=== PATIENT | female | born 1950 | race Caucasian/White ===

== ENCOUNTER → 2018-01-09 15:53 | Outpatient (CLI) | payer OTHER, SELFPAY ==
--- NOTE | 2018-01-09 16:15 | DI.REPORT_ITS ---
SYMPTOM/DIAGNOSIS: SCREENING, Z12.31 MAMMOGRAMS: Mammograms were interpreted according to the usual protocol including computer analysis with CAD system, tomosynthesis and C view imaging. Comparison with prior examinations. Breast density B. No masses or microcalcifications are seen. There is nothing to suggest malignancy. IMPRESSION: Negative mammogram. Routine screening is recommended. Category 1 -B MQSA ASSESSMENT OF FINDINGS: Negative. Category 1. Patient will receive a letter notifying them of these results. BI-RADS category B. There are scattered areas of fibroglandular density.
== END ==
PROVIDERS: PCP Nurse Practitioner; Visit Provider Nurse Practitioner Family
DX: Z12.31 Encounter for screening mammogram for malignant neoplasm of breast (principal)
CPT/HCPCS: 77063; 77067

== ENCOUNTER 2018-08-24 09:08 | Outpatient (REF) | payer OTHER, SELFPAY ==
[2018-08-24 15:03] LABS: Cholesterol 202 mg/dL (50-200); HDL Cholesterol 59 mg/dL (40-60); LDL CHOLESTEROL 118 mg/dL (<100); TSH (W/Ref FT4) 3.21 uIU/mL (0.358-3.74); Triglyceride 143 mg/dL (30-150)
== END 2018-08-24 09:28 ==
LOC: NCHCN 09:08
PROVIDERS: PCP Nurse Practitioner; Visit Provider Nurse Practitioner
DX: E03.9 Hypothyroidism, unspecified (principal); E78.00 Pure hypercholesterolemia, unspecified
CPT/HCPCS: 80061; 83721; 84443

== ENCOUNTER 2019-05-08 12:34 | Outpatient (REF) | payer OTHER, SELFPAY ==
[2019-05-08 14:20] LABS: ALT 24 U/L (14-59); AST 22 U/L (15-37); Alkaline Phosphatase 92 U/L (46-116); Anion Gap 10.8 mmol/L (3-11); BUN 14 mg/dL (7-18); Bilirubin, Total 0.4 mg/dL (0.2-1.0); CO2 27.2 mmol/L (21.0-32.0); CREATININE 0.77 mg/dL (0.55-1.02); Calcium 9.5 mg/dL (8.5-10.1); Calculated LDL 195 mg/dL; Chloride 103 mmol/L (98-107); Cholesterol 294 mg/dL (<200); Glucose 93 mg/dL (74-106); HDL Cholesterol 57 mg/dL (40-60); Potassium 4.5 mmol/L (3.5-5.1); Sodium 141 mmol/L (136-145); Total Protein 7.5 g/dL (6.4-8.2); Triglyceride 213 mg/dL (<150)
== END 2019-05-08 12:54 ==
LOC: NCHCN 12:34
PROVIDERS: PCP Nurse Practitioner; Visit Provider Nurse Practitioner
DX: I10 Essential (primary) hypertension (principal)
CPT/HCPCS: 80053; 80061

== ENCOUNTER 2020-08-19 12:24 | Outpatient (CLI) | payer OTHER, SELFPAY ==
--- NOTE | 2020-08-19 | DI.DEXA_ITS ---
EXAM: XR DEXA BONE DENSITY W/WO LEAH CLINICAL HISTORY: OSTEOPOROSIS, M81.0 TECHNIQUE: Routine DEXA evaluation of the lumbar spine, hip, or forearm. COMPARISON: August 2010 study FINDINGS: Performed on a HoloFRESS unit. Lateral image: No compression fracture evident. Lumbar Spine total T-score: -3.1. Prior 2010 reading was -2.9. Hip total T-score:-1.9. Prior 2010 reading was -1.1. Today's T-score at the level of the ipsilateral femoral neck is -2.0 Forearm total T-score: IMPRESSION: Bone mineral density measures in the osteoporosis range. Fracture risk is high. Note: Any spine fracture indicates 5x risk for subsequent spine fracture and 2x risk for subsequent h ip fracture. World Health Organization criteria for BMD interpretation classify patients: Normal...... T- Score at or above -1.0 Osteopenic... T- Score between -1.0 and -2.5 Osteoporosis... T-Score at or below -2.5
== END 2020-08-19 12:44 ==
PROVIDERS: PCP Nurse Practitioner; Visit Provider Nurse Practitioner
DX: M81.0 Age-related osteoporosis without current pathological fracture (principal)
CPT/HCPCS: 77080

== ENCOUNTER 2020-08-29 07:57 | Outpatient (REF) | payer OTHER, SELFPAY ==
[2020-08-29 16:32] LABS: Hemoglobin A1C 6.1 % (<5.7)
[2020-08-29 16:42] LABS: ALT 28 U/L (14-59); AST 22 U/L (15-37); Albumin 4.2 g/dL (3.4-5.0); Alkaline Phosphatase 101 U/L (46-116); Anion Gap 7.2 mmol/L (3-11); BUN 14 mg/dL (7-18); Bilirubin, Total 0.4 mg/dL (0.2-1.0); CO2 28.8 mmol/L (21.0-32.0); CREATININE 0.8 mg/dL (0.55-1.02); Calcium 9.7 mg/dL (8.5-10.1); Calculated LDL 81 mg/dL (<100); Chloride 106 mmol/L (98-107); Cholesterol 172 mg/dL (<200); Glucose 93 mg/dL (74-106); HDL Cholesterol 59 mg/dL (40-60); Potassium 4.3 mmol/L (3.5-5.1); Sodium 142 mmol/L (136-145); TSH (W/Ref FT4) 2.79 uIU/mL (0.36-3.74); Total Protein 7.6 g/dL (6.4-8.2); Triglyceride 161 mg/dL (<150)
== END 2020-08-29 07:58 | disposition home or self-care (01) ==
LOC: NCHCN 07:57
PROVIDERS: PCP Nurse Practitioner; Visit Provider Nurse Practitioner
DX: E03.9 Hypothyroidism, unspecified (principal); R73.03 Prediabetes; I10 Essential (primary) hypertension; E78.00 Pure hypercholesterolemia, unspecified
CPT/HCPCS: 80053; 80061; 83036; 84443

== ENCOUNTER 2020-09-05 03:05 | Outpatient (CLI) | payer OTHER, SELFPAY ==
--- NOTE | 2020-09-05 | DI.MAMMO_ITS ---
EXAM: MG MAMMO SCREENING CLINICAL HISTORY: SCREENING,Z12.39 TECHNIQUE: Mammograms were interpreted according to the usual protocol including computer analysis w [employer] CAD system, tomosynthesis and C-view imaging. COMPARISON: FINDINGS: The breasts are of moderate density with fairly symmetrical distribution of fibroglandular tissue. N o dominant mass or clumped microcalcification is identified in breast. Current examination is compar ed with previous examinations including January 2018 and there has been no gross interval change in ap pearance in comparison with the prior studies. IMPRESSION: No specific evidence of malignancy at this time. Routine screening examinations are suggested at yea rly intervals in this age group according to the ACS ACR guidelines. BI-RADS Category 1 - Negative Breast Density - Category B - Scattered areas of fibroglandular density
== END 2020-09-05 03:25 ==
PROVIDERS: PCP Nurse Practitioner; Visit Provider Nurse Practitioner
DX: Z12.31 Encounter for screening mammogram for malignant neoplasm of breast (principal)
CPT/HCPCS: 77063; 77067

== ENCOUNTER 2020-09-10 09:46 | Day surgery (SDC) | payer OTHER, SELFPAY ==
--- NOTE | 2020-09-10 06:48 | ENDO_ITS ---
Date of service: 09/10/20 Time of Service: 11:45 Endoscopy Report DATE OF PROCEDURE: 09/10/20 PRE-OP DIAGNOSIS: GERD POST-OP DIAGNOSIS: same (esophagitis, gastritis, small Hiatal Hernia) PROCEDURE: EGD with biopsies SURGEON: Francesca Andrews ANESTHESIA TYPE: General:No Airway (ASA 2/Josh Sanchez, TEOFILO) ESTIMATED BLOOD LOSS: 3 PATHOLOGY: other (Antrum bx, GE junction bx, body bx) COMPLICATIONS: None DISPOSITION: same day INDICATIONS: Mrs. Mcclendon is a pleasant 69-year-old female with reflux for 2 years. Over the last year it has gotten worse. She is taking pantoprazole 40 mg daily. She continues to have acid coming up into her throat especially at nighttime. She has now changes in her voice. At night when the acid comes up into the back of her throat she chokes and coughs and sometimes wheezes. I suspect she is having some small amount of aspiration. She has tried sleeping on a wedge pillow and tried changing her diet. We discussed the anatomy as well as the procedure. I wonder whether she has a hiatal hernia and that is why her symptoms have gotten worse. I recommended trying to stop the pantoprazole and see if it is even making a difference. If her symptoms get worse then I would switch to taking pantoprazole at nighttime. In the meantime we will schedule her for an upper endoscopy. Risks, benefits and complications have been reviewed. Complications include but are not limited to bleeding, pain, perforation, sore throat, aspiration, and adverse reaction to the medications. Questions were entertained and answered to their satisfaction and they wished to proceed. No guarantees were given or implied. COVID-19 testing explained to the patient. Reason for test reviewed. Quarantine per state requirements reviewed with patient. Patient understands and agrees to testing. Proceed with EGD and biopsies FINDINGS: mild inflammation at the GE junction moderate inflammation in the stomach PROCEDURE DESCRIPTION: After informed consent was obtained the patient was take to the procedure room and placed in a supine position. Monitors were applied and a time out was done. The patients name, date of , procedure type, allergies to medications and metal in their body was reviewed. A bite block was placed and the patient was sedated. Once sedated and comfortable the gastroscope was advanced through the oropharynx which was grossly normal into the esophagus. The proximal and mid- esophagus were normal. In the distal esophagus there was mild inflammation noted. The scope was advanced into the stomach and through the pylorus into the 3rd portion of the duodenum. The pylorus was noted to be wide open and it did not contract. The duodenum was noted to be normal. The scope was retracted back into the stomach. There was moderate inflammation noted throughout the stomach. Biopsies were done to rule out H. pylori. There were no ulcers. The scope was retroflexed. The cardia and fundus were noted to be normal. There was a small hiatal hernia noted. The scope was retracted back into the esophagus and biopsies were done of the GE junction to rule out Chew's. The Z line was regular. The GE junction was at 35 cm. The scope was removed and the patient was woken up and taken back to [facility] in stable condition. Follow up: 2 weeks. Start on Carafate
--- NOTE | 2020-09-10 06:50 | PDOC.DSDIS_ITS ---
Discharge Plan Disposition Patient Disposition: HOME Condition: Good Discharge Details Reason For Visit: GERD Attending Provider: Francesca Andrews Primary Care Provider: Jovita Adams Home Meds and New Rx's Prescriptions: New sucralfate [Carafate] 1 gram tablet 1 g PO QID Qty: 56 RF: 0 Continued Caltrate + D3 Plus Minerals 300 mg-800 unit -25 mg-0.5 mg tablet 1 tab PO DAILY RF: 0 levothyroxine 25 MCG tablet 25 mcg PO DAILY RF: 0 pravastatin 20 MG tablet 20 mg PO DAILY RF: 0 pantoprazole 40 mg tablet,delayed release (DR/EC) 40 mg PO DAILY RF: 0 alendronate 70 mg Tablet 70 mg PO QWEEK RF: 0 Discharge Instructions Instructions: Diet for Stomach Ulcers and Gastritis (ED), Gastritis (DC), Hiatal Hernia (DC) Additional Instructions: Findings: Small Hiatal hernia inflammation in the esophagus and stomach Follow up: 2 weeks in the office Please call if you develop: fevers >101.5 Nausea or Vomiting Abdominal pain that is not transient DAY SURGERY UNIT POST ENDOSCOPY INSTRUCTIONS 1. Because there will be medication in your system for the next 24 hours, you may feel a little sleepy. Your coordination will be affected. Therefore: a. Do not drive or operate dangerous equipment for 24 hours. b. Do not drink alcohol beverages for 24 hours (not even beer). c. Plan to go home and rest for the day. 2. Generally there are no restrictions on your activity after a day or so has gone by, but you may feel a bit fatigued for a few days. 3 After you arrive home you may have a light meal and return to a normal diet as you can tolerate it without feeling sick to your stomach. 4. After surgery, you may feel pain or discomfort. This should be only tra nsient, but if it persists please contact your doctor. 5. If there are any questions regarding the findings of your procedure, please feel free to contact your doctor. 6. If you are unable to contact your doctor with a problem, contact the hospital at [phone]. 7. Continue all your regular medications unless directed otherwise. I understand the above instructions and have no questions. Signature of Patient or Responsible Adult Escort Date/Time Name of Responsible Adult Escort Signature of Nurse Date/Time Activity:: Activity as Tolerated Diet:: low acid Discharge Orders Discharge Orders: Discharge Order (Routine); Ordered 09/10/20 Ordered By: Francesca Andrews
[2020-09-10 10:17] VITALS: BP 173/89; PULSE 66; RESP 16; TEMP 36.5; O2SAT 97
[2020-09-10] MEDS: Lactated Ringers 1,000 ML 80 ML IV (11:00)
--- NOTE | 2020-09-10 11:30 | STOM_PTH ---
PATIENT: Stephanie Mcclendon I LOC: [facility] U#:[id number] AGE/SX: 69/F ROOM: RE09/10/[address]: Francesca Andrews MD : 1950 BED: DIS: 09/10/2020 SPEC #: [id number] RECD: 09/10/20 12:57 STATUS: ANTHONY RE #: [id number] SHAHRAM: 09/10/20 11:[address]: Francesca Andrews DEPT: Surgical Specimen RECD BY: Kath Mckenzie ENTERED: 09/10/20 12:58 SP TYPE: STOMACH OTHR DR: Jovita Adams Tissues: 1 - STOMACH BIOPSY 2 - STOMACH BIOPSY 3 - ESOPHAGUS BIOPSY Procedures: GROSS AND MICRO LEVEL 4 Comments: [id number]
[2020-09-10 12:43] VITALS: BP 200/95; PULSE 62; RESP 18; TEMP 36.2; O2SAT 97
== END 2020-09-10 12:45 | disposition home or self-care (01) ==
LOC: SUR 09:47
PROVIDERS: PCP Nurse Practitioner; Visit Provider Surgery
PROC: 0DJ68ZZ Inspection of Stomach, Via Natural or Artificial Opening Endoscopic (ICD-10-PCS; CPT 43235; principal; 2020-09-10 11:30)
DX: K21.00 Gastro-esophageal reflux disease with esophagitis, without bleeding (principal); B96.81 Helicobacter pylori [H. pylori] as the cause of diseases classified elsewhere; K31.89 Other diseases of stomach and duodenum; K29.70 Gastritis, unspecified, without bleeding; K44.9 Diaphragmatic hernia without obstruction or gangrene
CPT/HCPCS: 43239; 88305; J2001

== ENCOUNTER 2021-09-15 10:57 | Emergency (ER) | payer OTHER, SELFPAY ==
[2021-09-15 11:17] VITALS: BP 156/83; PULSE 68; RESP 16; TEMP 37; O2SAT 94
== END 2021-09-15 13:28 ==
PROVIDERS: PCP Nurse Practitioner
DX: Z53.21 Procedure and treatment not carried out due to patient leaving prior to being seen by health care provider (principal)

== ENCOUNTER 2021-09-19 11:04 | Outpatient (REF) | payer OTHER, SELFPAY ==
[2021-09-19 11:38] LABS: Crystals (BF) No Crystals seen
== END 2021-09-19 11:05 | disposition home or self-care (01) ==
LOC: LBN 11:04
PROVIDERS: PCP Nurse Practitioner; Visit Provider Physician Assistant Medical
DX: M25.461 Effusion, right knee (principal)
CPT/HCPCS: 87070; 87205; 89060

== ENCOUNTER 2021-09-21 08:54 | Outpatient (CLI) | payer OTHER, SELFPAY ==
--- NOTE | 2021-09-21 | DI.RAD_ITS ---
Exam(s) XR KNEE RT 3V AP,LAT,EMILE EXAM: XR KNEE RT 3V AP,LAT,EMILE CLINICAL HISTORY: RIGHT KNEE EFFUSION - M25.461. TECHNIQUE: 2D digital imaging was performed. Three views. COMPARISON: No exams were available for comparison FINDINGS: BONES: No acute fracture is present. No bony destructive lesion is seen. JOINTS: The knee is normally aligned. Small joint effusion is seen. Moderate narrowing medial femoral tibial joint space. Mild periarticular spurring. SOFT TISSUE: Normal. IMPRESSION: Degenerative changes and small joint effusion. DATA REPOSITORY: RADIATION DOSE DELIVERED:
== END 2021-09-21 09:14 ==
PROVIDERS: PCP Nurse Practitioner; Visit Provider Nurse Practitioner Family
DX: M25.461 Effusion, right knee (principal)
CPT/HCPCS: 73562

== ENCOUNTER → 2021-10-27 11:45 | Outpatient (CLI) | payer OTHER, SELFPAY ==
--- NOTE | 2021-10-27 10:15 | DI.MRI_ITS ---
Exam(s) MR LOWER JOINT RT WO EXAM: MR LOWER JOINT RT WO CLINICAL HISTORY: PAIN, DJD OF RT KNEE, INTERNAL DERANGEMENT, M17.11, M23.91. TECHNIQUE: Multiplanar multisequence MRI was performed. COMPARISON: CR XR KNEE RT 3V AP,LAT,EMILE from 09/21/2021 FINDINGS: BONES: There is no fracture or contusion pattern. Subchondral edema is seen in the medial femoral con dyle and the medial tibial plateau. JOINTS: There is high-grade chondromalacia in the medial femoral tibial joint. There is an associate d flattened crescentic area of abnormal signal in the medial femoral condyle. It measures 1.2 cm. T here is a similar car centric area in the medial tibial plateau. There is associated marrow edema. There is high-grade chondromalacia involving the medial patellar facet. There is a small joint effus ion present. Degenerative changes are present in all 3 joint compartments with thinning of the artic ular cartilage and periarticular spurring present. The findings are most marked in the medial femora l tibial joint. TENDONS: Extensor mechanism: Unremarkable. Medial retinaculum: Unremarkable. Lateral retinaculum: Unremarkable. Popliteus: Unremarkable. MUSCLES: Unremarkable. MENISCI: There is degenerative signal seen in the body of the medial meniscus. There is a large tear of the posterior horn of the medial meniscus near the root. The lateral meniscus is unremarkable. SOFT TISSUES: There is edema seen in the soft tissues around the knee. No focal fluid collection is appreciated. LIGAMENTS: Anterior Cruciate: Unremarkable. Posterior Cruciate: Unremarkable. Medial Collateral:There is fluid signal seen around the MCL suggesting a sprain. There may also be a tear seen in the MCL and capsule proximally. Lateral Collateral: Unremarkable. OTHER: IMPRESSION: 1. Tear of the medial meniscus near the root. Intrasubstance degeneration and/or tear of the body of the medial meniscus. 2. Osteochondral injury involving both the medial femoral condyle and the medial tibial plateau. 3. Sprain versus partial tear of the medial collateral ligament and medial capsule. 4. 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 DATA REPOSITORY:
--- NOTE | 2021-10-27 17:42 | DI.VRAD_ITS ---
PROCEDURE INFORMATION: Exam: MR Right Lower Extremity Joint Without Contrast, Knee Exam date and time: 10/27/2021 4:29 PM Age: 70 years old Clinical indication: Pain; Knee; Right TECHNIQUE: Imaging protocol: MR of the Right lower extremity joint without contrast. Exam focused on the knee. COMPARISON: CR XR KNEE RT 3V AP,LAT,EMILE 09/21/2021 10:38 AM FINDINGS: Bones and cartilage: High-grade chondromalacia medial compartment. Focal osteochondral injury anterior weight-bearing surface of the medial femoral condyle where there is a crescentic area of signal abnormality measuring approximately 1.2 cm x 1.2 cm AP and transverse dimension with subjacent marrow edema. Osteochondral injury of the medial tibial plateau with crescentic signal abnormality measuring approximately 2 cm by 1 cm AP and transverse dimension and subjacent marrow edema. High-grade chondromalacia patella, especially the medial patellar facet. Joint spaces: Moderate knee joint effusion. Mild synovitis and debris. Medial meniscus: Complete tear posterior horn of the medial meniscus near the root attachment. Associated peripheral extrusion of the body of the medial meniscus with intrasubstance tearing. Lateral meniscus: Unremarkable. No tear. Anterior cruciate ligament: Unremarkable. No tear. Posterior cruciate ligament: Unremarkable. No tear. Medial capsule and supporting structures: Heterogeneous appearance of the medial capsular ligaments consistent with partial tearing. Heterogeneous appearance of the medial collateral ligament consistent with low-grade partial tearing. Distal semimembranosus enthesopathy. Lateral capsule and supporting structures: Popliteus muscle edema consistent with muscle strain. Extensor mechanism of knee: Unremarkable. No tear. Muscles: Unremarkable. Soft tissues: Anterior subcutaneous edema. IMPRESSION: 1. Root avulsion posterior horn medial meniscus with peripheral extrusion of the body of the medial meniscus and intrasubstance tearing 2. Osteochondral injury medial femoral condyle and medial tibial plateau without evidence of unstable fragment 3. Partial tearing medial collateral ligament and medial capsule 4. Distal semimembranosus enthesopathy For 5 moderate knee joint effusion with mild synovitis and debris 6. High-grade chondromalacia patella and medial compartment. Dictated and Authenticated by: Maty Campos MD. Ordering:JOHN Irene MD
== END ==
PROVIDERS: PCP Nurse Practitioner Family; Visit Provider Student in an Organized Health Care Education/Training Program
DX: M17.11 Unilateral primary osteoarthritis, right knee (principal); M23.91 Unspecified internal derangement of right knee; S83.241A Other tear of medial meniscus, current injury, right knee, initial encounter; M22.41 Chondromalacia patellae, right knee; X58.XXXA Exposure to other specified factors, initial encounter; M76.891 Other specified enthesopathies of right lower limb, excluding foot; M65.861 Other synovitis and tenosynovitis, right lower leg; M25.461 Effusion, right knee
CPT/HCPCS: 73721

== ENCOUNTER 2021-11-10 10:03 | Outpatient (CLI) | payer OTHER, SELFPAY ==
--- NOTE | 2021-11-10 09:30 | DI.RAD_ITS ---
Exam(s) XR STANDING ALIGNMENT EXAM: XR STANDING ALIGNMENT CLINICAL HISTORY: right knee. TECHNIQUE: 2D digital imaging was performed. Standing AP views were performed from the pelvis throu gh the ankles. COMPARISON: CR XR KNEE RT 3V AP,LAT,EMILE from 09/21/2021 FINDINGS: BONES: No acute fracture is present. No bony destructive lesion is seen. JOINTS: Knees: There is moderate narrowing of the medial femoral tibial joint space of the right knee . There is mild periarticular spurring. The left knee shows joint spaces are maintained. There is mild periarticular spurring. The ankle joints are unremarkable.The right hip joint space is well maintained. [place] obscures visua lization of the left hip. The right iliac crest projects superior to the left by 8-10 millimeters. SOFT TISSUE: Normal. IMPRESSION: Degenerative changes of the medial femoral tibial joint space of the right knee. Mild overall leg le ngth discrepancy. DATA REPOSITORY: RADIATION DOSE DELIVERED:
== END 2021-11-10 10:04 | disposition home or self-care (01) ==
LOC: DIORS 10:03
PROVIDERS: PCP Nurse Practitioner Family; Referring Provider Nurse Practitioner Family; Visit Provider Student in an Organized Health Care Education/Training Program
DX: M25.561 Pain in right knee; M23.8X1 Other internal derangements of right knee; M21.70 Unequal limb length (acquired), unspecified site; M17.11 Unilateral primary osteoarthritis, right knee
CPT/HCPCS: 77073

== ENCOUNTER 2021-11-23 11:31 | Outpatient (REF) | payer OTHER, SELFPAY ==
[2021-11-23 14:59] LABS: Abs Immature Grans 0.01 10^3/uL (0.0-0.06); Absolute Basophil Count 0.07 10^3/uL (0.0-0.2); Absolute Eosinophil Count 0.11 10^3/uL (0.0-0.7); Absolute Lymphocyte Count 2.22 10^3/uL (1.2-3.4); Absolute Monocyte Count 0.41 10^3/uL (0.1-0.8); Absolute Neutrophil Count 4.44 10^3/uL (1.2-6.7); Eosinophils % 1.5; HCT 38.9 % (36.0-46.0); HGB 12.6 g/dL (11.2-15.7); Immature Grans % 0.1; Lymphocytes % 30.6; MCH 27.6 pg (27.0-33.0); MCHC 32.4 % (32.0-36.0); MCV 85 fL (80-95); MPV 10.4 fL (8.0-11.0); Monocytes % 5.6; Neutrophils % 61.2; Platelet Count 302 10^3/uL (130-400); RBC 4.56 10^6/uL (3.93-5.22); RDW 13.8 % (11.7-14.6); RDW-SD 43.1 fL; WBC 7.26 10^3/uL (4.4-10.8)
[2021-11-23 15:24] LABS: ALT 27 U/L (14-59); AST 20 U/L (15-37); Albumin 4.2 g/dL (3.4-5.0); Alkaline Phosphatase 63 U/L (46-116); Anion Gap 8.8 mmol/L (3-11); BUN 12 mg/dL (7-18); Bilirubin, Total 0.3 mg/dL (0.2-1.0); CO2 27.2 mmol/L (21.0-32.0); CREATININE 0.8 mg/dL (0.55-1.02); Calcium 9.8 mg/dL (8.5-10.1); Chloride 101 mmol/L (98-107); Glucose 88 mg/dL (74-106); Potassium 4.2 mmol/L (3.5-5.1); Sodium 137 mmol/L (136-145); TSH (W/Ref FT4) 1.34 uIU/mL (0.36-3.74); Total Protein 7.5 g/dL (6.4-8.2)
[2021-11-23 15:35] LABS: Hemoglobin A1C 6.3 % (<5.7)
== END 2021-11-23 11:32 | disposition home or self-care (01) ==
LOC: NCHCN 11:31
PROVIDERS: PCP Nurse Practitioner Family; Visit Provider Nurse Practitioner Family
DX: I10 Essential (primary) hypertension (principal); R73.03 Prediabetes; E03.9 Hypothyroidism, unspecified; E78.00 Pure hypercholesterolemia, unspecified
CPT/HCPCS: 80053; 83036; 84443; 85025

== ENCOUNTER 2021-12-22 01:22 | Outpatient (CLI) | payer OTHER, SELFPAY ==
[2021-12-22 09:49] LABS: Source Nasal/Nares
[2021-12-22 12:42] LABS: COVID-19 PCR Negative (Negative)
== END 2021-12-22 01:23 | disposition home or self-care (01) ==
LOC: LBO 01:22
PROVIDERS: PCP Nurse Practitioner Family; Visit Provider Student in an Organized Health Care Education/Training Program
DX: Z20.822 Contact with and (suspected) exposure to COVID-19 (principal); Z01.818 Encounter for other preprocedural examination
CPT/HCPCS: 87635

== ENCOUNTER 2021-12-24 06:10 | Day surgery (SDC) | payer OTHER, SELFPAY ==
[2021-12-24] VITALS (11 sets, daily range): BP systolic 146–186; BP diastolic 72–128; PULSE 57–71; RESP 11–22; TEMP 36.1–36.5; O2SAT 93–98; BMI 34.0
[2021-12-24] MEDS: Acetaminophen 500 MG TAB 1000 MG PO (06:42)
[2021-12-24] MEDS: Celecoxib 200 MG CAP 400 MG PO (06:42)
[2021-12-24] MEDS: Gabapentin 300 MG CAP PO (06:42)
--- NOTE | 2021-12-24 07:00 | DI.RAD_ITS ---
Exam(s) XR KNEE RT 2V AP,LAT EXAM: XR KNEE RT 2V AP,LAT CLINICAL HISTORY: Portable in PACU postop. TECHNIQUE: 2D digital imaging was performed. COMPARISON: CR XR STANDING ALIGNMENT from 11/10/2021 FINDINGS: Two views-postop Satisfactory position alignment of the components of the newly placed medial hemiarthroplasty. No fracture or loosening evident. IMPRESSION: DATA REPOSITORY: RADIATION DOSE DELIVERED:
[2021-12-24] MEDS: Lactated Ringers 1,000 ML 30 ML IV (07:03)
--- NOTE | 2021-12-24 07:05 | ANES.PREOP_ITS ---
General Info Date of Service Date Performed: 12/24/21 Height: 5 ft 7 in Weight: 98.5 kg Body Mass Index (BMI): 34.0 Surgical Procedure: Operation Date: 12/24/21 08:00 Proposed Procedure Side Surgeon p Knee Medial Unicondylar Arthroplasty Right Joe Downs MD Meds Allergies and Home Medications Allergies Allergy/AdvReac Type Severity Reaction Status Date / Time No Known Allergies Allergy Unverified 12/24/21 06:38 Home Medication Medication Instructions Recorded levothyroxine 25 mcg tablet 25 mcg PO DAILY 01/29/16 pantoprazole 40 mg tablet,delayed 40 mg PO DAILY 05/15/19 release calcium carb 300 mg-D3 800 1 tab PO DAILY 09/02/20 unit-mag ox 25 mg-copier field service technician 0.5 mg-kelvin-Zn tablet (Caltrate + D3 Plus Minerals) alendronate 70 mg tablet 70 mg PO .WEEKLY 09/15/21 lisinopril 10 1 tab PO DAILY 09/15/21 mg-hydrochlorothiazide 12.5 mg tablet rosuvastatin 10 mg tablet 10 mg PO DAILY 09/15/21 Current Visit Medications: Current Medications Generic Name Dose Route Start Last Admin Trade Name Sal PRN Reason Stop Dose Admin Acetaminophen 1,000 mg 12/24/21 06:00 12/24/21 06:42 Acetaminophen 500 Mg Tab PO 01/22/22 23:59 1,000 mg PREOP LINDA Administration Celecoxib 400 mg 12/24/21 06:00 12/24/21 06:42 Celecoxib 200 Mg Cap PO 01/22/22 23:59 400 mg PREOP LINDA Administration Gabapentin 300 mg 12/24/21 06:00 12/24/21 06:42 Gabapentin 300 Mg Cap PO 01/22/22 23:59 300 mg PREOP LINDA Administration Ringer's Solution 1,000 mls @ 30 mls/hr 12/24/21 06:00 12/24/21 07:03 IV 01/22/22 23:59 30 mls/hr INFUSION LINDA Administration Cefazolin Sodium 2,000 mg/ 100 mls @ 200 mls/hr 12/24/21 06:00 Sodium Chloride IVPB 12/24/21 18:00 PREOP LINDA Tranexamic Acid 1,000 mg/ 60 mls @ 360 mls/hr 12/24/21 06:00 Sodium Chloride IVPB 12/24/21 18:00 PREOP LINDA IV Miscellaneous Supplies 1 each 12/24/21 06:00 Iv Access IV 01/22/22 23:59 DIRECTED LINDA Sodium Chloride 0 ml 12/24/21 06:00 Normal Saline Flush 10 Ml Syr IV 01/22/22 23:59 PRN PRN Sodium Chloride 0 ml 12/24/21 06:00 Normal Saline 10 Ml Vial IJ 01/22/22 23:59 DIRECTED PRN Sterile Water 0 ml 12/24/21 06:00 Water,Injection,Sterile 10 Ml Vial IJ 01/22/22 23:59 DIRECTED PRN PFSH Active Problems Active Problems: Problem Status Onset Code Effusion, right knee M25.461 Internal derangement of right knee M23.91 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 Unsure what it was. Surgical History Surgical History Biopsy of breast L breast x 2 biopsies 1998 Dx adenosis /benign History of esophagogastroduodenoscopy (EGD) (~09/2020) History of tonsillectomy Tobacco Smoking/Tobacco Use Status: Former Tobacco Use Alcohol Alcohol Intake: current Alcohol intake frequency: holidays/special occasions only Substance Use Substance use: Never Substance use type: does not use Vital Signs and Lab Results Vital Signs Most Recent Vital Signs in EMR: Most Recent Vital Signs Temp Pulse Resp BP Pulse Ox 36.4 C L 68 16 163/94 H 96 12/24/21 06:33 12/24/21 06:33 12/24/21 06:33 12/24/21 06:33 12/24/21 06:33 Lab Results Blood Type / Crossmatch: No Data to Display Complete Blood Count: No Data to Display Complete Metabolic Panel: No Data to Display Liver Function Panel: No Data to Display Coagulation Panel: No Data to Display Cardiac Panel: No Data to Display Arterial Blood Gas: No Data to Display Venous Blood Gas: No Data to Display Pancreas Panel: No Data to Display Thyroid Panel: No Data to Display Infectious Disease: Coronavirus (COVID-19)(PCR) Negative (Negative) 12/22/21 09:32 Coronavirus 2019 Source Nasal/Nares 12/22/21 09:32 Blood Cultures: No Data to Display Toxicology Panel: No Data to Display Anesthesia Assessment and Plan Anesthesia History Personal History: No History of Anesthesia Complications Family History: No Family History of Anesthesia Complications and Other Exercise Tolerance Exercise Tolerance: Metabolic Equivalents>4 Pertinent Negatives Pertinent Negatives: No Symptoms of GERD, No Major Cardiovascular Symptoms or Complaints, No Major Pulmonary Symptoms or Complaints and No History of CVA/TIA Cardiac & Pulmonary Exam Cardiac Exam: Normal S1/S2 Heart Sounds Pulmonary Exam: Clear Bilateral Breath Sounds Implantable Cardiac Device Does patient have a Pacemaker or an ICD?: No Airway Exam Known Difficult Airway: No Mallampati Class: 3 Mouth Opening: Normal (> 3cm) Thyromental Distance: Less than 3 cm Neck Range of Motion: Full ROM Neck Circumference: Normal Teeth Condition: Normal Dentition ASA Classification ASA Score: ASA 2 Emergency Case?: No NPO Status NPO Status: NPO Clears >2 hours, Solids >8 hours Anesthesia Plan Resuscitation Status: Full Code Anesthesia Technique: Spinal Anesthesia Airway Planned: Natural Airway Monitors Used: Standard Monitors
[2021-12-24] MEDS: ceFAZolin 2,000 MG in Normal Saline 100 ML 200 MG IVPB (07:44)
--- NOTE | 2021-12-24 08:00 | W.PM.OP ---
Operative Note Operative Note DATE OF PROCEDURE: 12/24/21 PRE-OP DIAGNOSIS: 1. Right knee medial compartmental arthritis POST-OP DIAGNOSIS: same PROCEDURE: 1. Right knee medial unicompartmental arthroplasty, CPT # 90209 The public aid eligibility assistant was medically required as this procedure involves retraction, protection of neurovascular structures, and manipulation of multiple instruments and implants at the same time, which cannot be done without a skilled public aid eligibility assistant. SURGEON: Joe Downs HAND BOOKED FOLDER AND STITCHER: Lesli Martinez ANESTHESIA TYPE: Local By Surgeon, General LMA/ETT, Spinal and Primary Nerve Block Refer to Anesthesia Record ESTIMATED BLOOD LOSS: 75 TOURNIQUET TIME: 0 COMPLICATIONS: None Patient was transported to: PACU Patient's condition: stable Implants: DePuy Sigma HP partial knee size 3 metal-backed tibial tray, 7 mm tibial insert fixed bearing, size 4 femoral component Indications: Please see complete medical record for details. Findings: Largely isolated medial compartment arthritis and extruded medial meniscus due to narrowing and root tear. Intact ACL. Mild undersurface patellar chondromalacia. Procedure Description: The patient was taken to the operating room and transferred to the operating room table. Spinal anesthesia was induced. All bony prominences were well-padded. Preoperative antibiotics and 1 g TXA were administered. A tourniquet was placed loosely over padding high on the patient's thigh. The knee and lower extremity were prepped and draped in the usual sterile fashion. The correct patient, procedure, and side of the procedure were all verified prior to incision. A slightly medial of midline longitudinal approach was used to the knee extending from the superior pole the patella to the distal aspect of the tibial tubercle. The quadriceps tendon, patella borders, and patellar tendon were exposed. A full-thickness arthrotomy was performed starting splitting the quadriceps tendon and leaving a sleeve of tissue on the medial aspect of the patella and taking care to progress along the medial margin the patellar tendon. The MCL was elevated off the proximal medial tibia. The tibial alignment jig was set in place on the anterior medial aspect of the tibia and carefully adjusted to achieve proper alignment in the coronal and sagittal planes. Reciprocating saw was used to create the vertical cut at the medial aspect of the medial tibial eminence taking care to protect the ACL ligament footprint. The transverse cut was then done using the microsagittal saw through the jig taking care to retract and protect the MCL. The bone piece and cut were inspected and found to be appropriate for patient anatomy. A box rasp was used to clean up the cut especially the L component. The 7 mm spacer block was inserted and found to have good equal stability in full extension and 90 degrees of flexion with approximately 2 mm of joint space opening in 20-30 degrees of flexion. With the knee in extension, the tibial trial spacer block was used to ave the rotational alignment and anterior extent of the femoral component. The spacer block was removed and the tibia was sized with the depth gauge. The distal femoral cutting block was inserted taking care to orient it appropriately. The cut was done using the saw through the guide. The guide was removed, and the femur was sized with the femoral sizing blocks. The appropriate sized cutting jig was selected. Care was taken to ensure the block was flush with the resected distal femur bone surface. A curved gouge was used to cut the profile of the proximal tip of the femoral prosthesis, ave the extent of the anterior chamfer cut, and prevent trochlear cartilage delamination. The posterior cut was done through the jig, the anterior cut was done using the osteotomes, the posterior chamfer cut was done through the jig, and the drill was used to drill the 2 peg holes. The cutting block and bone cuts were removed. The medial meniscus remnant was removed. The femoral component trial was placed in the distal femur and the 7 mm spacer block confirmed appropriate balancing in flexion, extension, and again 2 mm of medial joint space opening in 20-30 degrees of flexion. Tibial template was inserted and the size confirmed to be appropriate. The keel was used by hand to remove bone from the slot and the tibial peg drill was used in the peg hole. The pulse lavage was used to clean the bone surfaces. SmartSet medium viscosity cement was prepared. At the appropriate time during the early working phase, the cement was applied to the backside of the tibial and femoral components. Then, cement was carefully placed and pressurized into the proximal tibia taking care to only have minimal cement posteriorly. The tibial component was inserted at an angle and then impacted directing pressure from posterior to anterior to keep the flow of cement from posterior to anterior. Cement was then applied to the distal femur and the femoral component impacted. Excess cement was removed. The knee was brought into full extension and this position with axial load was maintained until the cement was completely hardened at 18 minutes. A combination R.E.C.K. (123 mg Ropivacaine, 0.25 mg Epinephrine, 0.04 mg Clonidine, and 15 mg Ketorolac) 50 ml injection was widely infiltrated about the knee. The wound was copiously irrigated with the pulse lavage and Surgiphor Wound Irrigation. Tibial tray box folding machine operator was removed, and the final tibial insert was inserted and clicked into place. The knee was tested through range of motion found to be stable with equal balancing from full extension to flexion past 90 degrees and a couple millimeters of medial joint space opening in 20-30 degrees of flexion. Appropriate hemostasis was achieved. The capsule was approximated using #1 Vicryl in a figure-of-8 interrupted fashion and then closed using Stratafix #1 PDS barbed suture in a running fashion. The superficial layers were irrigated. Subcutaneous tissue was closed using 2-0 Monocryl in a buried interrupted fashion. Skin was closed using 3-0 Monocryl in a buried subcuticular fashion. The skin incision was glued and then covered with a Mepilex Ag dressing. An Christofer wrap was applied from the foot up to the thigh. The patient awoke from anesthesia without complication was transferred to the recovery room in stable condition.
--- NOTE | 2021-12-24 08:20 | W.ANESNERVE ---
Nerve Block Single Injection Procedure Date and Time Date Performed: 12/24/21 Procedure Start: : Location Where Procedure Performed Procedure Location: Day Surgery Unit Reason Performed: Postoperative Analgesia Requesting Provider: Joe Downs Timeout Performed Timeout Performed: Yes Monitoring Used ECG, Blood Pressure, SpO2 and See EMR for corresponding vital signs Sterility Sterility: Hand Hygiene, Surgical Cap, Surgical Mask, Sterile Gloves and Chlorhexidine Sedation Given During Procedure Sedation Given (Indicate Dose Given): No Sedation given Patient Mental Status Patient Mental Status: Awake Nerve Block 1st Nerve Block: Laterality: Right Block Type: Adductor Canal Needle / Catheter Used: 100mm SonoPlex II Local Anesthetic Bolus (Indicate Dose Given): Lidocaine used for local infiltration of skin and Bupivacaine 0.25% Dose:: 15 mL Additives (Indicate Dose Given): None Ultrasound: Sterile probe cover and gel used Ultrasound Image Saved?: Yes Nerve Stimulator: Not Used Paresthesia: None Procedure Tolerated: No Complications Procedure Outcome: Successful Performed By: Jelly Edouard Supervised By: Josh Sanchez
--- NOTE | 2021-12-24 10:44 | W.PM.DSUDISC ---
Discharge Plan Disposition Patient Disposition: HOME Condition: Stable Discharge Details Reason For Visit: Right knee surgery Attending Provider: Joe Downs Primary Care Provider: MANDI PATEL Home Meds and New Rx's Prescriptions: New aspirin 81 mg tablet,delayed release (DR/EC) 81 mg PO BID 30 Days Qty: 60 0RF naproxen 250 mg tablet 250 - 500 mg PO BID PRNQty: 40 0RF Rx Instructions: take with a meal oxycodone 5 mg tablet 5 - 10 mg PO Q4H MDD 30 mg PRN (Reason: moderate to severe pain) Qty: 18 0RF Continued Caltrate + D3 Plus Minerals 300 mg-800 unit -25 mg-0.5 mg tablet 1 tab PO DAILY levothyroxine 25 MCG tablet 25 mcg PO DAILY pantoprazole 40 mg tablet,delayed release (DR/EC) 40 mg PO DAILY alendronate 70 mg tablet 70 mg PO .WEEKLY Label Comments: TAKE 1 TABLET WEEKLY lisinopril-hydrochlorothiazide 10-12.5 mg tablet 1 tab PO DAILY rosuvastatin 10 mg tablet 10 mg PO DAILY Discharge Instructions Additional Instructions: Surgery: Right medial unicondylar knee replacement Activity: Weightbearing as tolerated. Recommend elevation to minimize swelling and discomfort. Walk as comfort allows. May use walker as needed for safety. It is important to restore full knee extension as soon as possible. Gently progress knee flexion over the next few weeks. Do not rest with pillows behind knee to prevent knee from getting stuck bent. A physical therapy prescription will be sent electronically to begin in 2-3 weeks. Prescriptions: Aspirin 81 mg take 1 twice a day to prevent a blood clot 30 days Naproxen 250 mg take 1-2 every 12 hours with a meal as needed for moderate pain (stop if GI issues occur) Oxycodone 5 mg take 1-2 every 4-6 hours as needed for severe pain You may use [id number] Tylenol (acetaminophen) as needed for mild pain These pain medications may be taken all at once or in different combinations as needed Also, recommend Colace (docusate) as a stool softener as surgery and pain medicine cause constipation You may try [id number] diphenhydramine (Benadryl) 25-50 mg nightly as a sleep aid Dressings: Leave Band-Aid in place until follow-up. Keep clean and dry at all times. May remove Christofer wrap tomorrow. May re-wrap with Christofer wrap to help control swelling as needed. Follow-up: 10-[address] Downs You may take off the leg compression Christofer wrap and stockings tomorrow at home. You may also leave them on a few days longer if you have a history of leg swelling or edema. Let us know right away if you develop any redness, drainage, fevers, chest pain, or trouble breathing. Do not drink alcohol or drive for at least 24 hours after anesthesia. Please call the office during business hours with any questions or concerns. Discharge Orders Discharge Orders: Discharge Order (Routine); Ordered 12/24/21 Ordered By: Joe Downs DS: Diagnosis Discharge Diagnosis (1) Degenerative joint disease of right knee: Status: Chronic
--- NOTE | 2021-12-24 11:09 | W.ANESPOSTOP ---
Postoperative Evaluation Date, Time and Location Date Performed: 12/24/21 Time Performed: 11:10 Patient Location: PACU Vital Signs Most Recent Imported Vital Signs: Most Recent Vital Signs Temp Pulse Resp BP Pulse Ox 36.1 C L 59 L 12 184/87 H 97 12/24/21 10:53 12/24/21 10:53 12/24/21 10:53 12/24/21 10:53 12/24/21 10:53 Pain Score Most Recent Pain Score: Most Recent Pain Score Pain Level 0 12/24/21 07:18 Assessment Mental Status: Awake (Alert & Oriented to Patient Baseline) Airway and Respiratory Function: Patent airway with normal (patient baseline) respiratory exam Cardiovascular Function: Hemodynamically Stable Hydration Status: Adequately Hydrated Nausea & Vomiting: No Nausea or Vomiting Pain: Pain is tolerable per patient Peripheral Nerve Block: Regional nerve block not resolved at time of post operative discharge
[2021-12-24] MEDS: ceFAZolin 1 GM/50 ML BAG IVPB (11:35)
[2021-12-24] MEDS: Naproxen 500 MG TAB PO (13:41)
--- NOTE | 2021-12-24 13:59 | PT.INIE ---
Date of service: 12/24/21 Time of Service: 13:59 PT Notes Visit Reasons: Right knee surgery Physical Therapy Day Surgery Initial Evaluation Date: 12/24/2021 Referring Doctor: Joe Downs MD PT Orders: PT CONSULT: Safety consult for D/C. requesting visit for walker/crutch training and safety upon D/C Precautions: WBAT right LE with AD. Patient Profile/Admitting Diagnosis: Stephanie is a 71-year-old female with right medial knee compartmental arthritis and is status post right medial unicompartmental arthroplasty on postoperative day 0 PMHX: All Active Problems?(Updated 11/10/21 @ 10:00 by PAIGE Saavedra) Effusion, right knee (Acute) Internal derangement of right knee (Acute) Degenerative joint disease of right knee (Chronic) Steroid injection: 09/15/2021 Peptic reflux esophagitis (Acute) Helicobacter positive gastritis (Acute) Prediabetes (Acute) Hypothyroid (Chronic) Medical History? 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 Biopsy of breast L breast x 2 biopsies 1998 Dx adenosis /benignHistory of esophagogastroduodenoscopy (EGD) (~09/2020) History of tonsillectomy Social History/Home Situation: Lives in a private home with 2 steps to enter without rails but she has as a single-point cane and posts on B sides which patient can hold onto. Has another 3 steps that need to a landing and 10 steps to the basement where her bedroom is. Daughter will provide needed assistance as she recovers. Equipment Owned/DME: [facility]. Provided with [facility] today. Subjective: Agreeable to PT consult. Reports 2/10 pain in the right knee. Denies headache, chest pain, and dizziness throughout session. Objective: General Observation: Supine in bed. EDWIGE wraps to R LE. Cryocuff to R knee. Mental Status: Alert and oriented x4 Pain: 2/10 in the right knee ROM: Right Lower Extremity: Hip flexion WFL. Hip abduction WFL. Knee flexion 10 degrees to 100 degrees. Knee extension -10 degrees. Ankle dorsiflexion WFL. Ankle plantarflexion WFL. Left Lower Extremity: Hip flexion WFL. Hip abduction WFL. Knee flexion WFL. Ankle dorsiflexion WFL. Ankle plantarflexion WFL. Strength: Right Lower Extremity: Hip flexors 4/5. Hip abductors 4/5. Knee flexors 4/5. Knee extensors 3-/5. Knee extension 3-/5. Ankle dorsiflexors 5/5. Ankle plantarflexors 5/5. Left Lower Extremity:Hip flexors 5/5. Hip abductors 5/5. Knee flexors 5/5. Knee extensors 5/5. Ankle dorsiflexors 5/5. Ankle plantarflexors 5/5. Sensation: Intact as to pain and light pressure in bilateral lower extremities. Bed Mobility/Transfers: Supine to sit standby assist Sit to stand contact-guard assist Stand to sit standby assist Bed to chair contact-guard assist Gait: Patient tolerated level surface ambulation of 150 feet using front wheeled walker with step through gait pattern without report of increasing pain in the right knee. Standby assist provided with minimal cueing for correct and safe gait pattern. Stairs: Completed up-and-down 6 x 4 inch steps and 4 x 6 inch steps while holding onto 1 rail and using a single-point cane with the other hand with step to gait pattern requiring contact-guard assist. Minimal cues given for correct technique. Balance: Static Sitting: Normal Dynamic Sitting: Normal Static Standing: Fair Dynamic Standing: Fair Special Tests: Mobility Limitations Standardized Measure [facility] AM-PAC 6 clicks Basic Mobility Inpatient Short Form: Raw Score: 23 CMS Score: 11% deficit Informed Consent/Education: Patient instructed in purpose of PT consult. Assessment: patient requires the use of a front wheeled walker to maximize independence and reduce fall risk at home. Patient presents with clinical signs and symptoms consistent with current/admitting diagnoses that have resulted to mobility limitations, gait instability, generalized weakness, and impairment of motor control as demonstrated by the following impairment level findings: 1. Decreased strength to right knee major muscle groups 2. Impaired standing balance 3. Limitation of joint range of motion in right knee Impairments are contributing to the following functional limitations: 1. Inability to safely ambulate without assistive device 2. Increase completion time for mobility ADL performance 3. Increased fall risk Patient is assessed as a 92792 moderate complexity based on the following: History: 71-year-old female with impairment level findings, functional limitations, and past medical history as indicated above Examination: Demonstrable impairment in strength, balance, and mobility level with underlying impairments and functional limitations as documented above Presentation: Evolving Decision Makin moderate complexity Goals: N/A. PT evaluation and 1-2 treatment sessions only for functional mobility training using recommended AD and for HEP instruction. Plan of Care/Treatment Plan: N/A. PT evaluation and 1-2 treatment session only for functional mobility training using recommended AD and for HEP instruction. DISCHARGE RECOMMENDATIONS: [] Home with no services [] [] Home with services [specify] [X] Home with outpatient PT . Home when medically cleared by orthopedic surgeon. May benefit from outpatient PT services in order to maximize functional mobility level and facilitate return to independent community ambulation as well as to vocational activities. [] SNF for continued rehabilitation [] [] Long-Term Care [] [] SNF versus LTC based on ability to participate and progress [] TREATMENT CODE/TIME: 29475 x 22 minutes beginning at 13:59 PM. Thank you for the opportunity to participate in the care of this patient. Ilsa Steele PT, DPT, CLT [facility] [place], [place]
== END 2021-12-24 15:02 | disposition home or self-care (01) ==
PROVIDERS: PCP Nurse Practitioner Family; Visit Provider Student in an Organized Health Care Education/Training Program
PROC: (CPT 27446; principal; 2021-12-24 07:30)
DX: M17.11 Unilateral primary osteoarthritis, right knee (principal); I10 Essential (primary) hypertension; E03.9 Hypothyroidism, unspecified; R73.03 Prediabetes
CPT/HCPCS: 27446; 76942; 97162; 73560; J0690; J1100; J1885; J2250; J2405

== ENCOUNTER 2021-12-26 10:54 | Emergency (ER) | payer OTHER, SELFPAY ==
[2021-12-26 11:07] VITALS: BP 112/64; PULSE 64; RESP 16; TEMP 36.9; O2SAT 96
--- NOTE | 2021-12-26 11:30 | DI.RAD_ITS ---
Exam(s) XR KNEE RT 2V AP,LAT EXAM: XR KNEE RT 2V AP,LAT CLINICAL HISTORY: fall on knee. TECHNIQUE: 2D digital imaging was performed. Three images were obtained. AP and lateral views were obtained. COMPARISON: CR XR KNEE RT 2V AP,LAT from 12/24/2021 FINDINGS: BONES: There are stable post operative changes present. No fracture or dislocation. JOINTS: The orthopedic hardware is in good position. SOFT TISSUE: Normal. IMPRESSION: Stable postoperative changes. DATA REPOSITORY: RADIATION DOSE DELIVERED:
--- NOTE | 2021-12-26 11:30 | RT.EKG_ITS ---
APPROVED REPORT Exam: Resting ECG Reason for Exam: pre syncope Patient Location: E HR:62 bpm ECG Measurements Heart Rate 62 AXIS OH 174 P 65 QRSd 95 QRS -1 QT 449 T 41 QTc 458 Conclusion Sinus rhythm...normal P axis, V-rate 60- 99 sinus rhtyhm, left axis, normalintervals, non ischemic
[2021-12-26 12:04] LABS: Abs Immature Grans 0.03 10^3/uL (0.0-0.06); Absolute Basophil Count 0.05 10^3/uL (0.0-0.2); Absolute Lymphocyte Count 2.05 10^3/uL (1.2-3.4); Absolute Monocyte Count 0.77 10^3/uL (0.1-0.8); Absolute Neutrophil Count 5.66 10^3/uL (1.2-6.7); Basophils % 0.6; Eosinophils % 1.2; HCT 34.4 % (36.0-46.0); Immature Grans % 0.3; Lymphocytes % 23.7; MCH 27.4 pg (27.0-33.0); MCV 86 fL (80-95); MPV 10.3 fL (8.0-11.0); Monocytes % 8.9; Neutrophils % 65.3; Platelet Count 252 10^3/uL (130-400); RBC 4.01 10^6/uL (3.93-5.22); RDW 12.8 % (11.7-14.6); RDW-SD 40.5 fL; WBC 8.66 10^3/uL (4.4-10.8)
[2021-12-26 12:21] LABS: ALT 23 U/L (14-59); AST 25 U/L (15-37); Albumin 3.8 g/dL (3.4-5.0); Alkaline Phosphatase 54 U/L (46-116); Anion Gap 9.4 mmol/L (3-11); BUN 17 mg/dL (7-18); Bilirubin, Total 0.6 mg/dL (0.2-1.0); CO2 25.6 mmol/L (21.0-32.0); CREATININE 0.8 mg/dL (0.55-1.02); Calcium 9.1 mg/dL (8.5-10.1); Chloride 97 mmol/L (98-107); Glucose 101 mg/dL (74-106); Potassium 3.9 mmol/L (3.5-5.1); Sodium 132 mmol/L (136-145); Total Protein 7.2 g/dL (6.4-8.2); Troponin I < 50 ng/L (<or=60)
--- NOTE | 2021-12-26 12:46 | DI.VRAD_ITS ---
PROCEDURE INFORMATION: Exam: XR Right Knee Exam date and time: 12/26/2021 12:22 PM Age: 71 years old Clinical indication: Pain; Right; Prior surgery; Surgery date: Post-operative (0-2 days); Surgery type: Partial knee TECHNIQUE: Imaging protocol: Radiologic exam of the Right knee. Views: 3 views. COMPARISON: CR XR KNEE RT 2V AP,LAT 12/24/2021 10:48 AM FINDINGS: Bones/joints: Medial compartment hemiarthroplasty. Marginal osteophytes of the lateral compartment. Soft tissues: Diffuse subcutaneous edema. IMPRESSION: Medial compartment hemiarthroplasty appears well seated Dictated and Authenticated by: Maty Campos MD. Ordering:SRINIVAS Stockton MD
[2021-12-26 13:35] VITALS: BP 145/91; PULSE 67; RESP 16; TEMP 36.5; O2SAT 95
--- NOTE | 2021-12-27 20:18 | ED.GENADUL_ITS ---
Discharge Plan Disposition Patient Disposition: HOME Condition: Stable Discharge Details Clinical Impression: Pre-syncope, Post surgical complication Primary Care Provider: MANDI PATEL ED Provider: Kath Ordonez Home Meds and New Rx's Prescriptions: New cephalexin 500 mg capsule 500 mg PO TID 7 Days Qty: 21 0RF Continued Caltrate + D3 Plus Minerals 300 mg-800 unit -25 mg-0.5 mg tablet 1 tab PO DAILY levothyroxine 25 MCG tablet 25 mcg PO DAILY pantoprazole 40 mg tablet,delayed release (DR/EC) 40 mg PO DAILY alendronate 70 mg tablet 70 mg PO .WEEKLY Label Comments: TAKE 1 TABLET WEEKLY lisinopril-hydrochlorothiazide 10-12.5 mg tablet 1 tab PO DAILY rosuvastatin 10 mg tablet 10 mg PO DAILY aspirin 81 mg tablet,delayed release (DR/EC) 81 mg PO BID 30 Days Qty: 60 0RF naproxen 250 mg tablet 250 - 500 mg PO BID PRNQty: 40 0RF Rx Instructions: take with a meal oxycodone 5 mg tablet 5 - 10 mg PO Q4H MDD 30 mg PRN (Reason: moderate to severe pain) Qty: 18 0RF Discharge Instructions Instructions: Near Syncope (ED) Additional Instructions: Take antibiotics as prescribed Recheck with Dr. Downs next week, you are sitting in the office Use caution with ambulation Return earlier with new or worsening complaints Referrals: MANDI PATEL, DRY BOX OPERATOR [Primary Care Provider] - Joe Downs MD [ [facility] STAFF PHYSICIAN] - Discharge Data Discharge Date/Time-TO BE ENTERED AT DEPARTURE: 12/26/21 13:37 Medical Decision Making Patient appears well, her troponin and EKG are within normal limits Her right knee does not show evidence of fracture The case was discussed with Dr. Downs and patient will be started on antibiotics and a large dressing was applied Patient is ambulatory without orthostatic hypotension Patient is declining additional assessment at this time and would like discharge home She is fully alert, oriented, of decisional capacity She will ambulate using her assistive devices at home as needed and will follow up with Dr. Downs next week She is given the threshold to return should she have new or worsening complaints She is encouraged to use caution with her affected extremity Virtual radiology interpretation of knee films interpreted where available Lab Data Lab results reviewed: Yes I reviewed the patient's lab results. HPI General Date/Time Provider Initiated Documentation: 12/26/21 10:57 . HPI Narrative: This 71-year-old female presents status post partial knee replacement on of this week. This morning she stood up and felt dizzy, fell to the ground. She landed on her right knee and used to stand up. She denies loss of consciousness. She denies any palpitations or chest pain. She is feeling symptomatically improved. She did not eat prior to this event. She had tunnel vision. She denies complete loss of consciousness. Denies history of anticoagulation. Related Data Home Medications Medication Instructions Recorded Confirmed levothyroxine 25 mcg tablet 25 mcg PO DAILY 01/29/16 12/26/21 pantoprazole 40 mg tablet,delayed 40 mg PO DAILY 05/15/19 12/26/21 release calcium carb 300 mg-D3 800 1 tab PO DAILY 09/02/20 12/26/21 unit-mag ox 25 mg-copper flotation operator 0.5 mg-kelvin-Zn tablet (Caltrate + D3 Plus Minerals) alendronate 70 mg tablet 70 mg PO .WEEKLY 09/15/21 12/26/21 lisinopril 10 1 tab PO DAILY 09/15/21 12/26/21 mg-hydrochlorothiazide 12.5 mg tablet rosuvastatin 10 mg tablet 10 mg PO DAILY 09/15/21 12/26/21 aspirin 81 mg tablet,delayed 81 mg PO BID Prevent blood clot 30 12/24/21 12/26/21 release days #60 tabs naproxen 250 mg tablet 250 - 500 mg PO BID PRN #40 tabs 12/24/21 12/26/21 oxycodone 5 mg tablet 5 - 10 mg PO Q4H PRN moderate to 12/24/21 12/26/21 severe pain #18 tabs cephalexin 500 mg capsule 500 mg PO TID 7 days #21 caps 12/26/21 Previous Rx's Medication Instructions Recorded aspirin 81 mg tablet,delayed 81 mg PO BID Prevent blood clot 12/24/21 release days #60 tabs naproxen 250 mg tablet 250 - 500 mg PO BID PRN #40 tabs 12/24/21 oxycodone 5 mg tablet 5 - 10 mg PO Q4H PRN moderate to 12/24/21 severe pain #18 tabs cephalexin 500 mg capsule 500 mg PO TID 7 days #21 caps 12/26/21 Allergies Allergy/AdvReac Type Severity Reaction Status Date / Time No Known Allergies Allergy Unverified 12/26/21 11:11 General Stated Complaint: Orthopedic LYNDSAY: 3 Review of Systems All systems reviewed & are unremarkable except as noted in HPI and below PFSH All Active Problems (Updated 12/26/21 @ 13:12 by PAIGE Morin) Pre-syncope (Acute) Post surgical complication (Acute) Degenerative joint disease of right knee (Chronic) Steroid injection: 09/15/2021 Peptic reflux esophagitis (Acute) Helicobacter positive gastritis (Acute) Prediabetes (Acute) Hypothyroid (Chronic) Medical History Acquired hypothyroidism (12/05/17) COVID-19 vaccine administered Elevated lipids (12/05/17) GERD (gastroesophageal reflux disease) History of hypertension D/C Rx Hypercholesterolemia L breast adenosis 1998 Obesity 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) Vaginal wall prolapse (05/02/13) Surgical History Biopsy of breast L breast x 2 biopsies 1998 Dx adenosis /benign History of esophagogastroduodenoscopy (EGD) (~09/2020) History of tonsillectomy Family History Mother Thyroid disorder Father Lymphoma Lung cancer Sister Thyroid disorder Daughter Thyroid disorder Other Heart disease Social History Smoking/Tobacco Use Status: Former Tobacco Use Quit Date: 06/06/91 Smoking risk assessment performed?: Yes Alcohol Intake: current Alcohol Intake frequency: holidays/special occasions only Drug use: Never Substance use type: does not use Current gender identity: female Do you feel safe at home: Yes Do you feel safe in your relationship?: Yes Exam Const General: cooperative, comfortable and no acute distress HENMT Head: normal to inspection Eyes Pupils: PERRL Resp Effort & Inspection: normal respiratory effort Auscultation: clear to auscultation bilaterally Cardio Rate: regular rate Rhythm: regular rhythm Skin Other: Wound with mild dehiscence to right knee, approximately 1 inch, mild blood- tinged serosanguineous drainage, no surrounding erythema Neuro General: patient alert and patient oriented x3 Cranial Nerves: CN's II-XI intact bilaterally Cognition: normal cognition Speech: speech normal Gait: normal gait Extrem Other: Neurovascularly intact, mild tenderness to right knee, no evidence of secondary cellulitis, nontender medially Course Vital Signs Vital signs: Vital Signs Temperature 36.9 C 12/26/21 11:07 Pulse 64 12/26/21 11:07 Respiratory Rate 16 12/26/21 11:07 Blood Pressure 112/64 12/26/21 11:07 Pulse Oximetry 96 12/26/21 11:07 Temperature 36.5 C 12/26/21 13:35 Temperature Source Temporal Artery Scan 12/26/21 11:07 Pulse 67 12/26/21 13:35 Respiratory Rate 16 12/26/21 13:35 Respiratory Effort 12/26/21 11:11 Blood Pressure 145/91 H 12/26/21 13:35 Blood Pressure Position Supine 12/26/21 11:07 Pulse Oximetry 95 12/26/21 13:35 Oxygen Delivery Method Room Air 12/26/21 11:07 Oxygen Flow Rate 0 12/26/21 11:07 Pain Level 8 12/26/21 13:35 Lab/Test Results Lab/Test Results: Laboratory Tests Range/Units 12/26/21 12/26/21 12:00 12:00 WBC (4.4-10.8) 10^3/uL 8.66 RBC (3.93-5.22) 10^6/uL 4.01 Hgb (11.2-15.7) g/dL 11.0 L Hct (36.0-46.0) % 34.4 L MCV (80-95) fL 86 MCH (27.0-33.0) pg 27.4 MCHC (32.0-36.0) % 32.0 RDW (11.7-14.6) % 12.8 Plt Count (130-400) 10^3/uL 252 MPV (8.0-11.0) fL 10.3 Immature Gran % 0.3 Neutrophils % 65.3 Lymphocytes % 23.7 Monocytes % 8.9 Eosinophils % 1.2 Basophils % 0.6 Nucleated RBC % (0.0-0.3) % 0.0 Absolute Neutrophils (1.2-6.7) 10^3/uL 5.66 Absolute Lymphocytes (1.2-3.4) 10^3/uL 2.05 Absolute Monocytes (0.1-0.8) 10^3/uL 0.77 Absolute Eosinophils (0.0-0.7) 10^3/uL 0.10 Absolute Basophils (0.0-0.2) 10^3/uL 0.05 Sodium (136-145) mmol/L 132 L Potassium (3.5-5.1) mmol/L 3.9 Chloride (98-107) mmol/L 97 L Carbon Dioxide (21.0-32.0) mmol/L 25.6 Anion Gap (3-11) mmol/L 9.4 BUN (7-18) mg/dL 17 Creatinine (0.55-1.02) mg/dL 0.8 Estimated GFR/1.73 m2 (mL/min/1.73m2) >= 60.00 Glucose (74-106) mg/dL 101 Calcium (8.5-10.1) mg/dL 9.1 Total Bilirubin (0.2-1.0) mg/dL 0.6 AST (15-37) U/L 25 ALT (14-59) U/L 23 Alkaline Phosphatase (46-116) U/L 54 Troponin I (<or=60) ng/L < 50 Total Protein (6.4-8.2) g/dL 7.2 Albumin (3.4-5.0) g/dL 3.8
== END 2021-12-26 13:37 | disposition home or self-care (01) ==
PROVIDERS: Emergency Provider Physician Assistant; PCP Nurse Practitioner Family
DX: R55 Syncope and collapse (principal); T81.31XA Disruption of external operation (surgical) wound, not elsewhere classified, initial encounter; Z87.891 Personal history of nicotine dependence; Y83.8 Other surgical procedures as the cause of abnormal reaction of the patient, or of later complication, without mention of misadventure at the time of the procedure; I10 Essential (primary) hypertension; Z96.651 Presence of right artificial knee joint
CPT/HCPCS: 36415; 80053; 93005; 96360; 99284; 73560; 84484; 85025; 93010

== ENCOUNTER 2022-01-06 10:16 | Outpatient (CLI) | payer OTHER, SELFPAY ==
--- NOTE | 2022-01-06 09:30 | DI.RAD_ITS ---
Exam(s) XR KNEE RT 2V AP,LAT EXAM: XR KNEE RT 2V AP,LAT INDICATION: right knee replacement f/u. COMPARISON: CR,XR XR KNEE RT 2V AP,LAT from 12/26/2021 TECHNIQUE: 2D digital imaging was performed. Two views. FINDINGS: There has been no change in the medial femoral tibial joint space prosthesis. The lateral femoral ti bial joint spaces well maintained. DATA REPOSITORY: RADIATION DOSE DELIVERED:
== END 2022-01-06 10:17 | disposition home or self-care (01) ==
LOC: DIORS 10:16
PROVIDERS: PCP Nurse Practitioner Family; Referring Provider Nurse Practitioner Family; Visit Provider Student in an Organized Health Care Education/Training Program
DX: Z96.651 Presence of right artificial knee joint (principal)
CPT/HCPCS: 73560

== ENCOUNTER 2022-02-03 11:43 | Outpatient (CLI) | payer OTHER, SELFPAY ==
--- NOTE | 2022-02-03 11:15 | DI.RAD_ITS ---
Exam(s) XR KNEE RT 2V AP,LAT EXAM: XR KNEE RT 2V AP,LAT CLINICAL HISTORY: right knee f/u. TECHNIQUE: 2D digital imaging was performed. COMPARISON: CR,XR XR KNEE RT 2V AP,LAT from 12/26/2021 FINDINGS: Two views There is continued stable appearance of the components of the medial hemiarthroplasty. No fracture n or loosening evident The lateral compartment maintains normal height. IMPRESSION: DATA REPOSITORY: RADIATION DOSE DELIVERED:
== END 2022-02-03 11:44 | disposition home or self-care (01) ==
LOC: DIORS 11:43
PROVIDERS: PCP Nurse Practitioner Family; Referring Provider Nurse Practitioner Family; Visit Provider Student in an Organized Health Care Education/Training Program
DX: Z96.651 Presence of right artificial knee joint (principal); Z47.1 Aftercare following joint replacement surgery
CPT/HCPCS: 73560

== ENCOUNTER 2022-03-17 11:46 | Outpatient (CLI) | payer OTHER, SELFPAY ==
--- NOTE | 2022-03-17 11:00 | DI.RAD_ITS ---
Exam(s) XR KNEE RT 2V AP,LAT EXAM: XR KNEE RT 2V AP,LAT CLINICAL HISTORY: RIGHT KNEE F/U TECHNIQUE: COMPARISON: CR XR KNEE RT 2V AP,LAT from 02/03/2022 FINDINGS: Two views were obtained and show medial latha arthroplasty in position. Components appear well seated . No other bony abnormality seen. IMPRESSION: RADIATION DOSE DELIVERED: Total DLP
== END 2022-03-17 11:47 | disposition home or self-care (01) ==
LOC: DIORS 11:46
PROVIDERS: PCP Nurse Practitioner Family; Referring Provider Nurse Practitioner Family; Visit Provider Student in an Organized Health Care Education/Training Program
DX: Z96.651 Presence of right artificial knee joint (principal)
CPT/HCPCS: 73560

== ENCOUNTER 2022-06-29 15:43 | Outpatient (REF) | payer OTHER, SELFPAY ==
[2022-06-29 15:04] LABS: Abs Immature Grans 0.01 10^3/uL (0.0-0.06); Absolute Basophil Count 0.07 10^3/uL (0.0-0.2); Absolute Eosinophil Count 0.12 10^3/uL (0.0-0.7); Absolute Lymphocyte Count 2.26 10^3/uL (1.2-3.4); Absolute Monocyte Count 0.53 10^3/uL (0.1-0.8); Absolute Neutrophil Count 3.58 10^3/uL (1.2-6.7); Basophils % 1.1; Eosinophils % 1.8; HCT 37.2 % (36.0-46.0); HGB 11.5 g/dL (11.2-15.7); Immature Grans % 0.2; Lymphocytes % 34.4; MCH 25.3 pg (27.0-33.0); MCHC 30.9 % (32.0-36.0); MCV 82 fL (80-95); MPV 10.9 fL (8.0-11.0); Monocytes % 8.1; Neutrophils % 54.4; Platelet Count 307 10^3/uL (130-400); RBC 4.55 10^6/uL (3.93-5.22); RDW-SD 38.5 fL; WBC 6.57 10^3/uL (4.4-10.8)
[2022-06-29 17:13] LABS: ALT 22 U/L (14-59); AST 23 U/L (15-37); Albumin 4.3 g/dL (3.4-5.0); Alkaline Phosphatase 68 U/L (46-116); Anion Gap 9.9 mmol/L (3-11); BUN 15 mg/dL (7-18); Bilirubin, Total 0.3 mg/dL (0.2-1.0); CO2 27.1 mmol/L (21.0-32.0); CREATININE 0.7 mg/dL (0.55-1.02); Calcium 9.9 mg/dL (8.5-10.1); Calculated LDL 89 mg/dL (<100); Chloride 102 mmol/L (98-107); Cholesterol 191 mg/dL (<200); Estimated GFR 91.83 (mL/min/1.73m2); Glucose 95 mg/dL (74-106); HDL Cholesterol 67 mg/dL (40-60); Potassium 4.2 mmol/L (3.5-5.1); Sodium 139 mmol/L (136-145); TSH (W/Ref FT4) 1.97 uIU/mL (0.36-3.74); Total Protein 7.5 g/dL (6.4-8.2); Triglyceride 178 mg/dL (<150)
== END 2022-06-29 15:44 | disposition home or self-care (01) ==
LOC: NCHCN 15:43
PROVIDERS: PCP Nurse Practitioner Family; Visit Provider Nurse Practitioner Family
DX: I10 Essential (primary) hypertension (principal); R73.03 Prediabetes; K21.9 Gastro-esophageal reflux disease without esophagitis; E03.9 Hypothyroidism, unspecified; E78.00 Pure hypercholesterolemia, unspecified
CPT/HCPCS: 80053; 80061; 84443; 85025

== ENCOUNTER 2022-07-21 11:34 | Outpatient (CLI) | payer MEDICARE, SELFPAY ==
--- NOTE | 2022-07-21 11:00 | DI.RAD_ITS ---
Exam(s) XR KNEE RT 2V AP,LAT EXAM: XR KNEE RT 2V AP,LAT INDICATION: RIGHT KNEE F/U. COMPARISON: CR XR KNEE RT 2V AP,LAT from 03/17/2022 TECHNIQUE: 2D digital imaging was performed. Two views. FINDINGS: Medial femoral tibial joint space prosthesis is noted. No surrounding abnormal lucencies. Some mild spurring from lateral femoral condyle and lateral tibial plateau. Joint spaces maintained. Impression: Stable appearance DATA REPOSITORY: RADIATION DOSE DELIVERED:
== END 2022-07-21 11:35 | disposition home or self-care (01) ==
LOC: DIORS 11:34
PROVIDERS: PCP Nurse Practitioner Family; Referring Provider Nurse Practitioner Family; Visit Provider Student in an Organized Health Care Education/Training Program
DX: Z96.651 Presence of right artificial knee joint (principal)
CPT/HCPCS: 99213; 73560

== ENCOUNTER 2022-08-11 11:21 | Outpatient (CLI) | payer MEDICARE, SELFPAY ==
--- NOTE | 2022-08-11 | DI.DEXA_ITS ---
Exam(s) XR DEXA BONE DENSITY W/WO LEAH EXAM: XR DEXA BONE DENSITY W/WO LEAH CLINICAL HISTORY: OSTEOPOROSIS M81.0, SCREENING TECHNIQUE: Hologic Horizon C densitometer analysis of left hip, lumbar spine. The forearms could n ot be analyzed due to history of fractures of both wrists. COMPARISON: DX DEXA BONE DENSITY WITH LEAH from 08/04/2010 CR XR DEXA BONE DENSITY W/WO LEAH from 08/19/2020 FINDINGS: Lateral view of the thoracic and lumbar spine shows no evidence of compression fractures. Bone mineral density measurements of the lumbar spine correspond to a total T-score of -2.3, in the osteopenic range. This represents an 11.1 percent increased from 2020 and 9.0 percent increase from 2010. Bone mineral density measurements of the left hip correspond to a total T-score of -1.7. The femora l neck T-score is -1.8, in the osteopenic range.. This represents a 4.6 percent increase from 2020 and 8.1 percent decrease from 2010. IMPRESSION: Osteopenia of the lumbar spine and left hip.
== END 2022-08-11 11:41 ==
PROVIDERS: PCP Nurse Practitioner Family; Visit Provider Nurse Practitioner Family
DX: M81.0 Age-related osteoporosis without current pathological fracture (principal); M85.88 Other specified disorders of bone density and structure, other site
CPT/HCPCS: 77080

== ENCOUNTER 2022-12-28 11:31 | Outpatient (CLI) | payer MEDICARE, SELFPAY ==
--- NOTE | 2022-12-28 11:00 | DI.RAD_ITS ---
Exam(s) XR KNEE RT 2V AP,LAT EXAM: XR KNEE RT 2V AP,LAT CLINICAL HISTORY: right knee f/u. TECHNIQUE: 2D digital imaging was performed of the right knee. Two views obtained. AP and lateral views were obtained. COMPARISON: CR XR KNEE RT 2V AP,LAT from 07/21/2022 FINDINGS: BONES: No acute fracture is present. No bony destructive lesion is seen. There are stable postsurgica l changes of a partial knee replacement. No evidence of hardware failure is seen. JOINTS: The knee is normally aligned. No joint effusion is seen. Stable mild degenerative changes are seen in the patellofemoral and lateral femoral tibial joint space. SOFT TISSUE: Normal. IMPRESSION: Stable partial knee replacement. DATA REPOSITORY: RADIATION DOSE DELIVERED:
== END 2022-12-28 11:32 | disposition home or self-care (01) ==
LOC: DIORS 11:31
PROVIDERS: PCP Nurse Practitioner Family; Referring Provider Nurse Practitioner Family; Visit Provider Student in an Organized Health Care Education/Training Program
DX: M17.11 Unilateral primary osteoarthritis, right knee (principal); Z96.651 Presence of right artificial knee joint
CPT/HCPCS: 20610; 99213; 73560; J1030

== ENCOUNTER → 2023-03-01 10:40 | Outpatient (BNVA) | payer MEDICARE, SELFPAY | PROVIDERS: PCP Nurse Practitioner Family; Referring Provider Nurse Practitioner Family; Visit Provider Student in an Organized Health Care Education/Training Program | DX: M17.11 Unilateral primary osteoarthritis, right knee (principal); Z96.651 Presence of right artificial knee joint | CPT/HCPCS: 99213 ==

== ENCOUNTER → 2023-03-03 02:09 | Outpatient (CLI) | payer MEDICARE, SELFPAY ==
--- NOTE | 2023-03-03 12:22 | DI.MAMMO_ITS ---
Exam(s) MAMMO SCREENING EXAM: MAMMO SCREENING CLINICAL HISTORY: SCREENING, Z12.39. TECHNIQUE: Bilateral full field digital CC and MLO mammographic images were obtained with 3D tomosyn thesis and utilizing computer aided detection (CAD). COMPARISON: Prior mammograms were reviewed. FINDINGS: There has been no significant change in the appearance and distribution of the fibroglandular tissue. There are no new spiculated masses nor malignant appearing microcalcification groups. There is no significant architectural distortion nor skin thickening-retraction. IMPRESSION: No radiographic evidence of malignancy. BI-RADS Category 1 - Negative Breast Density - Category B - Scattered areas of fibroglandular density Breast density Category C or D implies that the patient has dense breast tissue. Dense breast tissue can make it harder to find cancer on a mammogram. Dense breast tissue is also associated with an incr eased risk of breast cancer. This information about the result of the mammogram report was provided to the patient to raise their awareness. Use this report when you speak with the patient about their risks for breast cancer, which includes their family history. At that time, you may recommend additional screening tests (Ultrasoun d or MRI) as these tests may add significant information. A negative radiographic report should not delay biopsy if a dominant or clinically suspicious mass is present. Up to ten percent of cancers are not identified on mammography. A negative report may reinforce clinical impression. Adenosis and dense breasts may obscure an underlying neoplasm. False positive reports average 6 to 10%. Patient will receive a letter notifying them of these results.
== END ==
PROVIDERS: PCP Nurse Practitioner Family; Visit Provider Nurse Practitioner Family
DX: Z12.31 Encounter for screening mammogram for malignant neoplasm of breast (principal)
CPT/HCPCS: 77063; 77067

== ENCOUNTER 2023-12-27 14:48 | Outpatient (CLI) | payer MEDICARE, SELFPAY ==
--- NOTE | 2023-12-27 10:15 | DI.RAD_ITS ---
Exam(s) XR KNEE RT 2V AP,LAT EXAM: XR KNEE RT 2V AP,LAT CLINICAL HISTORY: F/U R KNEE UKA. TECHNIQUE: 2D digital imaging was performed. Two images were obtained. AP and lateral views were ob tained. COMPARISON: CR XR KNEE RT 2V AP,LAT from 12/28/2022 FINDINGS: BONES: There are stable post operative changes of a right knee hemiarthroplasty present. No fracture or dislocation. JOINTS: The orthopedic hardware is in good position. No evidence of hardware loosening. There are d egenerative changes seen in the lateral femoral tibial and patellofemoral joints characterized by ost eophytes. No joint effusion. SOFT TISSUE: Normal. IMPRESSION: Stable right knee hemiarthroplasty. DATA REPOSITORY: RADIATION DOSE DELIVERED:
== END 2023-12-27 14:49 | disposition home or self-care (01) ==
LOC: DIORS 14:48
PROVIDERS: PCP Nurse Practitioner Family; Referring Provider Nurse Practitioner Family; Visit Provider Student in an Organized Health Care Education/Training Program
DX: M17.11 Unilateral primary osteoarthritis, right knee (principal); M70.51 Other bursitis of knee, right knee; M70.52 Other bursitis of knee, left knee; Z96.651 Presence of right artificial knee joint
CPT/HCPCS: 20610; J1010; 73560

== ENCOUNTER 2024-05-02 15:11 | Outpatient (REF) | payer MEDICARE, SELFPAY ==
--- OUTSIDE RECORDS SUMMARY | 2024-05-02 15:25 | XMS_ITS | Encounter Summary ---
Author Organization [facility] Address [address] [place] [address] Care Team Providers Care Workforce Investment Act Career Manager Name Role Phone Unavailable Primary Care Provider Unavailabl e Encounter Details Date Type Department Care Team (Late st Contact Info) Description 03/29/2005 Results Only [facility] conversion [address] [place] [address] Iris Chamberlain, [facility] [address] [place] [address] [place] [address] Social History Tobacco Use Types Packs/Day Years Used Date Smoking Tobacco: Never Assessed Comments Unknown Sex and Gender Information Value Date Recorded Sex Assigned at Not on file Legal Sex Female 18:22 EST Gender Identity Not on file Sexual Orientation Not on file documented as of this encounter Plan of Treatment Not on file documented as of this encounter Procedures Procedure Name Priority Date/Time Associated Diagnosis Comments CYTOPATHOLOGY Routine 03/29/2005 0:00 EDT documented in this encounter Results * CYTOPATHOLOGY (03/29/2005 0:00 EDT) Pathology Report: CYTOPATHOLOGY REPORT Reports generated via electronic interface contain original data; however they are lacking the format of the original report. Caution should be taken when reading/interpreti ng unformatted reports. Name: ? STEPHANIE MCCLENDON ? Accession #: ? [id number] : ? 1950 (Age: 54) ??F ?Collect Date: ? 03/29/2005 Location: ? [facility] ? Receive Date: ? 03/30/2005 Provider: ?IRIS CHAMBERLAIN OUTDOOR ADVENTURE INSTRUCTOR Copy to: ? Specimen/Source: ?ThinPrep Pap Test, Cervix/Endocervix, processed on [employer] ThinPrep Imaging System, with manual evaluation Last Menstrual Period: ? 07/04/98 Other: ? HPVA - HPV testing requested if ASC-US on the current ThinPrep Pap test. ? SPECIMEN ADEQUACY ? Satisfactory for Evaluation - assessment of transformation zone component not applicable ( e.g. atrophy, vaginal sample, hysterectomy) GENERAL CATEGORIZATION ? Negative for Intraepithelial Lesion or Malignancy ? Document reviewed and electronically signed by: ? QASIM Pearson(ASCP)(IAC) ? Report Date: ??04/06/2005 15:53 End of Report ERNESTO GARCIA 03/29/2005 03/30/2005 us Iris Chamberlain OUTDOOR ADVENTURE INSTRUCTOR PATHOLOGY ORDERABLES Final R esult ERNESTO GARCIA [address] [place] [address] documented in this encounter Visit Diagnoses Not on filedocumented in this encounter
--- OUTSIDE RECORDS SUMMARY | 2024-05-02 15:25 | XMS_ITS | Encounter Summary ---
Author Organization [facility] [place] [address] Care Team Providers Care Regulatory Leader Name Role Phone Rama Jeter APRN Primary Care Provider [phone] Reason for Referral * Consultation (Routine) - Authorized Specialty Diagnoses / Procedures Referred By Ann Marie bruno Referred To Contact Orthopaedics Diagnoses Pes anserine bursitis Arthritis of both knees CONSIDER DIFFERENT INJECTIONS Joe Downs MD [address] [place] [address] Abrahan Shepherd MD [facility] [address] [place] [address] Referral ID Status Reason Start Date Expiration Date Visits Requested Visits Authorized [id number] Authorized Consult, Test & Treat PCP Updated and/or Approved 02/28/2024 08/27/2024 6 6 Encounter Details Date Type Department Care Team (Latest Contact Info) Description 03/12/2024 Transcribe Orders [facility] Incoming Referrals [phone] Joe Downs MD [address] [place], [place] [id number] Pes anserine bursitis; Arthritis of both knees Social History Tobacco Use Types Packs/Day Years Used Date Smoking Tobacco: Never Assessed Sex and Gender Information Value Date Recorded Sex Assigned at Not on file Gender Identity Not on file Sexual Orientation Not on file documented as of this encounter Plan of Treatment Upcoming Encounters Date Type Department Care Team (Late st Contact Info) Description 05/18/2024 11:00 AM EST Office [place] [address] Abrahan Shepherd MD [facility] [address] [place] [address] Scheduled Referrals Name Type Priority Associated Diagnoses Order Schedule Referral to Orthopaedics Outpatient Referral Routine Pes anserine bursitis Arthritis of both knees Ordered: 03/12/2024 documented as of this encounter Visit Diagnoses Diagnosis Pes anserine bursitis Pes anserinus tendinitis or bursitis Arthritis of both knees Unspecified arthropathy, lower leg documented in this encounter Care Teams Regulatory Leader Relationship Specialty Start Date End Date Rama Jeter APRN [facility] [place] [address] PCP - General Family Medicine 03/12/24 documented as of this encounter
--- OUTSIDE RECORDS SUMMARY | 2024-05-02 15:25 | XMS_ITS | Encounter Summary ---
Author Organization [facility] Address [address] [place] [address] Care Team Providers Care Electrical Mechanic Name Role Phone Unavailable Primary Care Provider Unavailabl e Encounter Details Date Type Department Care Team (Late st Contact Info) Description 09/18/2001 Results Only [facility] conversion [address] [place] [address] Aurora Adrian, FARNAZ Social History Tobacco Use Types Packs/Day Years [...] Priority Date/Time Associated Diagnosis Comments CYTOPATHOLOGY Routine 09/18/2001 0:00 EDT documented in this encounter Results * CYTOPATHOLOGY (09/18/2001 0:00 EDT) Pathology Report: CYTOPATHOLOGY REPORT Reports generated via electronic interface contain original data; however they are lacking the format of the original report. Caution should be taken when reading/interpreti ng unformatted reports. Name: ? STEPHANIE MCCLENDON ? Accession #: ? [id number] : ? 1950 (Age: 50) ??F ?Collect Date: ? 09/18/2001 Location: ? [facility] ? Receive Date: ? 09/20/2001 Provider: ?AURORA ADRIAN STOREHOUSE CLERK Copy to: ? Specimen/Source: ?ThinPrep Pap Test, Cervix/Endocervix Last Menstrual Period: ? 07/04/98 ? SPECIMEN ADEQUACY ? Satisfactory for Evaluation - transformation zone component present GENERAL CATEGORIZATION ? Negative for Intraepithelial Lesion or Malignancy ? Document reviewed and electronically signed by: ? Helga Armstrong, [place](ASCP) ? Report Date: ??09/26/2001 14:46 End of Report ERNESTO GARCIA 09/18/2001 09/20/2001 us Aurora Adrian STOREHOUSE CLERK PATHOLOGY ORDERABLES Final Re sult ERNESTO MCCLENDON [facility] [address] [place] [address] documented in this encounter Visit Diagnoses Not on filedocumented in this encounter
--- OUTSIDE RECORDS SUMMARY | 2024-05-02 15:25 | XMS_ITS | Clinical Summary ---
Author Organization [facility] Address [facility] [place] [address] Care Team Providers Care Rig Operator Name Role Phone Rama Jeter APRN Primary Care Provider [phone] Allergies No known active allergies Encounters Date Type Department Care Team Description 03/12/2024 Transcribe Orders [facility] Incoming Referrals [phone] Joe Downs MD Pes leanne bursitis; Arthritis of both knees from Last 3 Months Social History Tobacco Use Types Packs/Day Years Used Date Smoking Tobacco: Never Assessed Sex and Gender Information Value Date Recorded Sex Assigned at Not on file Gender Identity Not on file Sexual Orientation Not on file Plan of Treatment Upcoming Encounters Date Type Department Care Team (Late st Contact Info) Description 05/18/2024 11:00 AM EST [place] [address] Abrahan Shepherd MD [facility] [place] [address] Health Maintenance Due Date Last Done Comments CT Colonography 1950 Colonoscopy 1950 Colorectal Cancer Screening 1950 FIT DNA 1950 FIT 1950 Sigmoidoscopy (10 year) with FIT yearly 1950 Sigmoidoscopy 1950 Hepatitis C Screening 12/09/1967 Tetanus/Diphtheria/Pertussis Vaccines (1 - Tdap) 12/08 Breast Cancer Share Decision Needed 1989 Breast Cancer screening 1989 Zoster vaccine (1 of 2) 12/09/1999 Advance Directive 2004 Bone Density Scan 2014 Pneumoccocal Vaccine: 65+ (1 of 1 - PCV) 2014 Covid-19 Vaccine ( - 2024-25 season) 2024 Influenza (Flu) vaccine (1 o f 1 - Influenza standard series) 02/05/2024 Care Teams Rig Operator Relationship Specialty Start Date End Date Rama Jeter APRN [facility] [place] [address] PCP - General Family Medicine 03/12/24
--- OUTSIDE RECORDS SUMMARY | 2024-05-02 15:25 | XMS_ITS | Encounter Summary ---
Author Organization [facility] Address [address] [place] [address] Care Team Providers Care Gaming Manager Name Role Phone Unavailable Primary Care Provider Unavailabl e Encounter Details Date Type Department Care Team (Late st Contact Info) Description 01/06/2009 Orders Only [facility] Laboratory Services - [facility] ([address] [address] Aurora Adrian, FARNAZ Social History Tobacco Use [...] Procedure Name Priority Date/Time Associated Diagnosis Comments HPV DETECTION, HIGH RISK TYPES Routine 01/06/2009 16:00 EDT CYTOPATHOLOGY Routine 01/06/2009 0:00 EDT documented in this encounter Results * HUMAN PAPILLOMA VIRUS DNA TEST (01/06/2009 16:00 EDT) Specimen Description Cervix, ThinPrep vial [facility] Result Negative for HPV types 16, 18, 31, 33, 35, 39, 45, 51, 52, 56, 58, 59, and 68. [facility] Report Status Final 01/15/2009 [facility] 01/06/2009 16:0 0 EDT 01/09/2009 14:41 EDT us Aurora Adrian NP MICROBIOLOGY - GENERAL ORDERA BLES Final Result [facility] [address] [place] [address] * CYTOPATHOLOGY (01/06/2009 0:00 EDT) Pathology Report: CYTOPATHOLOGY REPORT ? Reports generated via electronic interface contain original data; ? however they are lacking the format of the original report. ? Caution should be taken when reading/interpreti ng unformatted reports. ? Name: ? STEPHANIE MCCLENDON ? Accession #: ? [id number] ? : ? 1950 (Age: 58) ??F ?Collect Date: ? 01/06/2009 ? Location: ? [facility] ? Receive Date: ? 01/07/2009 ? Provider: ?AURORA M BREANNA J2EE ANDROID DEVELOPER ? Copy to: ? Specimen/Source: ?Pap Test, Cervix/Endocervix, ThinPrep Imaging System ? with manual evaluation ? Last Menstrual Period: ? 1999 ? Hormonal/Contracep tive Status: ? Yes: Estradiol Vaginal Cream ? Other: ? HPVDX - HPV testing requested regardless of diagnosis on current ThinPrep Pap ?? test. ? SPECIMEN ADEQUACY ? Satisfactory for Evaluation ? - transformation zone component present ? GENERAL CATEGORIZATION ? Negative for Intraepithelial Lesion or Malignancy ? Document reviewed and electronically signed by: ? Myles Stumler, CT(ASCP) ? Report Date: ??01/08/2009 14:35 ? End of Report ? [facility] 01/06/2009 01/07/2009 us Aurora Adrian J2EE ANDROID DEVELOPER PATHOLOGY ORDERABLES Final Re sult [facility] [address] [place] [address] documented in this encounter Visit Diagnoses Not on filedocumented in this encounter
--- OUTSIDE RECORDS SUMMARY | 2024-05-02 15:25 | XMS_ITS | Encounter Summary ---
Author Organization [facility] Address [address] [place] [address] Care Team Providers Care Forest Examiner Name Role Phone Unknown, Provider Primary Care Provider Allison ilable Encounter Details Date Type Department Care Team (Late st Contact Info) Description 05/02/2013 Results Only [facility] Laboratory Services - [facility] ([address] [address] Aurora Adrian, BRINE PROCESS OPERATOR Social History Tobacco Use Types Packs/Day Years [...] Procedure Name Priority Date/Time Associated Diagnosis Comments PAP TEST- RESULT ONLY Routine 05/02/2013 0:00 EST documented in this encounter Results * PAP TEST- RESULT ONLY (05/02/2013 0:00 EST) Pathology Report: CYTOPATHOLOGY REPORT Reports generated via electronic interface contain original data; however they are lacking the format of the original report. Caution should be taken when reading/interpreti ng unformatted reports. Name: ? BELLO STEPHANIE Enzo ? Accession #: ? [id number] ? : ? 1950 (Age: 62) ??F ?Collect Date: ? 05/02/2013 ? Location: ? [facility] ? Receive Date: ? 05/04/2013 ? Provider: AURORA ADRIAN NP Copy to: KATHY ROSSI MD ? Final Report SPECIMEN ADEQUACY ? Satisfactory for Evaluation - transformation zone component present GENERAL CATEGORIZATION ? Negative for Intraepithelial Lesion or Malignancy ?? Last Menstrual Period: 1998 Specimen/Source: ??Pap Test, Cervix, ThinPrep Imaging System with manual evaluation Document reviewed and electronically signed by: ? Anamaria Bal, QASIM(ASCP) ? Report ??Date: 05/09/2013 12:33 HPV with Pap Test ? Date Ordered: ? 05/09/2013 ? Status: ?? Signed Out ?Date Complete: ? 05/11/2013 ? By: ??System Interface ? Date Reported: ? 05/11/2013 ? Interpretation RESULT: Negative for HPV. No E6 or E7 mRNA is detected from HPV types 16,18,31,33,35, 39,45,51,52,56,58, 59,66, and 68 by montessori program director mediated amplification. Comments Document reviewed and electronically signed by: ? System Interface ? Report date: 05/11/2013 By the signature above, the attending physician certifies that he/she has personally conducted a gross and/or microscopic examination of the described specimens and rendered or confirmed the above diagnosis. End of Report [facility] 05/02/2013 05/04/2013 us Aurora Adrian NP PATHOLOGY ORDERABLES Final Re sult [facility] [address] [place] [address] documented in this encounter Visit Diagnoses Not on filedocumented in this encounter Care Teams Forest Examiner Relationship Specialty Start Date End Date Unknown, Provider, PCP - General 05/04/13 documented as of this encounter
--- OUTSIDE RECORDS SUMMARY | 2024-05-02 15:25 | XMS_ITS | Referral Summary ---
Author Organization [facility] Address [address] [place] [address] Care Team Providers Care Medical Scheduler Name Role Phone Unknown, Provider Primary Care Provider Unava ilable Social History Tobacco Use Types Packs/Day Years Used Date Smoking Tobacco: Never Assessed Comments Unknown Sex and Gender Information Value Date Recorded Sex Assigned at Not on file Legal Sex Female 18:22 EST Gender Identity Not on file Sexual Orientation Not on file Plan of Treatment Not on file Insurance [employer] Care Teams Medical Scheduler Relationship Specialty Start Date End Date Unknown, Provider, PCP - General 05/04/13
--- OUTSIDE RECORDS SUMMARY | 2024-05-02 15:25 | XMS_ITS | Encounter Summary ---
Author Organization [facility] Address [address] [place] [address] Care Team Providers Care Charge Authorizer Name Role Phone Unknown, Provider Primary Care Provider Allison ilable Encounter Details Date Type Department Care Team (Late st Contact Info) Description 12/05/2017 Results Only [facility] [phone] Iris Chamberlain, [address] [place] [address] Social History Tobacco Use Types [...] Diagnosis Comments PAP TEST- RESULT ONLY Routine 12/05/2017 0:00 EDT documented in this encounter Results * PAP TEST- RESULT ONLY (12/05/2017 0:00 EDT) Pathology Report: CYTOPATHOLOGY REPORT Reports generated via electronic interface contain original data; however they are lacking the format of the original report. Caution should be taken when reading/interpreti ng unformatted reports. Name: ? STEPHANIE MCCLENDON I ? Accession #: ? [id number] ? : ? 1950 (Age: 67) ??F ?Collect Date: ? 12/05/2017 ? Location: ? [facility] ? Receive Date: ? 2017 ? Provider: IRIS CHAMBERLAIN LOOM SETTER FOURDRINIER Copy to: ? Final Report SPECIMEN ADEQUACY ? Satisfactory for Evaluation - transformation zone component present GENERAL CATEGORIZATION ? Negative for Intraepithelial Lesion or Malignancy ?? Last Menstrual Period: 1998 Specimen/Source: ??Pap Test, Cervix, ThinPrep Imaging System with manual evaluation Document reviewed and electronically signed by: ? Anamaria Bal, [facility](ASCP) ? Report ??Date: 12/18/2017 12:33 HPV with Pap Test ? Date Ordered: ? 12/18/2017 ? Status: ?? Signed Out ?Date Complete: ? 12/20/2017 ? By: ??System Interface ? Date Reported: ? 12/20/2017 ? Interpretation RESULT: Negative for HPV. No E6 or E7 mRNA is detected from HPV types 16,18,31,33,35, 39,45,51,52,56,58, 59,66, and 68 by extrusion press supervisor mediated amplification. Comments Document reviewed and electronically signed by: ? System Interface ? Report date: 12/20/2017 By the signature above, the attending physician certifies that he/she has personally conducted a gross and/or microscopic examination of the described specimens and rendered or confirmed the above diagnosis. End of Report [facility] 12/05/2017 2017 us Iris Chamberlain LOOM SETTER FOURDRINIER PATHOLOGY ORDERABLES Final R esult [facility] [address] [place] [address] documented in this encounter Visit Diagnoses Not on filedocumented in this encounter Care Teams Charge Authorizer Relationship Specialty Start Date End Date Unknown, Provider, PCP - General 05/04/13 documented as of this encounter
--- OUTSIDE RECORDS SUMMARY | 2024-05-02 15:25 | XMS_ITS | Clinical Summary ---
Author Organization [facility] Address [address] [place] [address] Care Team Providers Care Director Of Payroll Name Role Phone Unknown, Provider MD Primary Care Provider Unava ilable Social History Tobacco Use Types Packs/Day Years Used Date Smoking Tobacco: Never Assessed Comments Unknown Sex and Gender Information Value Date Recorded Sex Assigned at Not on file Legal Sex Female 18:22 EST Gender Identity Not on file Sexual Orientation Not on file Plan of Treatment Health Maintenance Due Date Last Done Comments Hepatitis C Screen 1950 Fall Risk Screening 2014 COVID-19 Vaccine (2023- season) 2024 RSV Immunization ( o r 60+ Years) (1 - 1-dose 75+ series) 2024 Insurance [employer] Care Teams Director Of Payroll Relationship Specialty Start Date End Date Unknown, Provider, PCP - General 05/04/13
--- OUTSIDE RECORDS SUMMARY | 2024-05-02 15:25 | XMS_ITS | Encounter Summary ---
Author Organization [facility] Address [address] [place] [address] Care Team Providers Care Auto Mechanic Apprentice Name Role Phone Unavailable Primary Care Provider Unavailabl e Encounter Details Date Type Department Care Team (Late st Contact Info) Description 01/09/2007 Results Only [facility] conversion [address] [place] [address] Aurora Adrian, FARNAZ Social History Tobacco Use [...] Priority Date/Time Associated Diagnosis Comments CYTOPATHOLOGY Routine 01/09/2007 0:00 EDT documented in this encounter Results * CYTOPATHOLOGY (01/09/2007 0:00 EDT) Pathology Report: CYTOPATHOLOGY REPORT Reports generated via electronic interface contain original data; however they are lacking the format of the original report. Caution should be taken when reading/interpreti ng unformatted reports. Name: ? STEPHANIE MCCLENDON ? Accession #: ? [id number] : ? 1950 (Age: 56) ??F ?Collect Date: ? 01/09/2007 Location: ? [facility] ? Receive Date: ? 01/10/2007 Provider: ?AURORA ADRIAN COACH TOUR DRIVER Copy to: ? Specimen/Source: ?ThinPrep Pap Test, Cervix/Endocervix, processed on [facility] ThinPrep Imaging System, with manual evaluation Last Menstrual Period: ? 1998 Other: ? HPVA - HPV testing requested if ASC-US on the current ThinPrep Pap test. ? SPECIMEN ADEQUACY ? Satisfactory for Evaluation - assessment of transformation zone component not applicable ( e.g. atrophy, vaginal sample, hysterectomy) GENERAL CATEGORIZATION ? Negative for Intraepithelial Lesion or Malignancy ? Document reviewed and electronically signed by: ? Claudia Simon, SCT(ASCP) ? Report Date: ??01/12/2007 10:11 End of Report [facility] 01/09/2007 01/10/2007 us Aurora Adrian NP PATHOLOGY ORDERABLES Final Re sult [facility] [address] [place] [address] documented in this encounter Visit Diagnoses Not on filedocumented in this encounter
--- OUTSIDE RECORDS SUMMARY | 2024-05-02 15:25 | XMS_ITS | Encounter Summary ---
Author Organization [facility] Address [address] [place] [address] Care Team Providers Care Calender Operator Name Role Phone Unknown, Provider Primary Care Provider Unava ilable Encounter Details Date Type Department Care Team (Late st Contact Info) Description 09/10/2020 Lab Requisition [facility] Pathology & Laboratory Medicine - [facility] [address] [place] [address] Cm Andrews MD [address] [place] [address] [place] [address] Encounter for other general examination Social History Tobacco Use Types Packs/Day Years [...] Procedure Name Priority Date/Time Associated Diagnosis Comments SURGICAL PATHOLOGY Today 09/10/2020 11 :30 EDT Encounter for other general examination documented in this encounter Results * SURGICAL PATHOLOGY (09/10/2020 11:30 EDT) Final Diagnosis A. STOMACH, ANTRUM, BIOPSY: - Helicobacter pylori associated gastritis. B. STOMACH, BODY, BIOPSY: - Helicobacter pylori associated gastritis. C. GASTROESOPHAGEAL JUNCTION, BIOPSY: - Squamous mucosa with mild reactive changes. - Fundic type mucosa with Helicobacter pylori associated gastritis. - Negative for intestinal metaplasia; Negative for dysplasia. 09/11/2020 13:46 EDT [facility] Attestation By the signature below, the attending physician certifies that they have 1) personally conducted a gross and/or microscopic examination of the described specimen(s), and/or personally interpreted the results of laboratory testing of the described specimen(s), and 2) personally rendered or confirmed the above diagnosis. 09/11/2020 13:46 [facility] at 1345 Clinical History GERD 09/11/2020 13:46 [facility] Gross Description A. Received in formalin labelled with proper patient identification (initials A, E) and antrum Bx are 2 fragments of burgess soft tissue (0.2 x 0.2 x 0.2 cm and 0.3 x 0.2 x 0.2 cm). The specimen is entirely submitted in A1. B. Received in formalin labelled with proper patient identification (initials A, E) and body Bx are 2 fragments of pink-burgess soft tissue (each averaging 0.2 x 0.2 x 0.2 cm). The specimen is entirely submitted in B1. C. Received in formalin labelled with proper patient identification (initials A, E) and GE junction Bx are 4 fragments of burgess-salgado soft tissue (ranging from 0.2 cm to 0.4 cm in greatest dimension). The specimen is entirely submitted in C1. PAIGE HOANG(ASCP) 09/10/2020 16:39 09/11/2020 13:46 [facility] Performing Lab [facility] 13:46 [facility] Scanned Images 09/11/2020 13:46 [facility] Tissue ENTIRE ESOPHAGO-MARIANO BRENNEN MUCOSAL JUNCTION / Unknown 09/10/2020 11:30 EDT 09/10/2020 16:05 EDT Tissue specimen (specimen) STOMACH STRUCTURE / Unknown 09/10/2020 11:30 EDT 09/10/2020 16:05 EDT Tissue specimen (specimen) CARDIOESOPHAGEAL JUNCTION STRUCTURE / Unknown 09/10/2020 11:30 EDT 09/10/2020 16:05 EDT us Cm Andrews MD PATHOLOGY ORDERABLES Fin al Result [facility] [address] [place] [address] documented in this encounter Visit Diagnoses Diagnosis Encounter for other general examination documented in this encounter Care Teams Calender Operator Relationship Specialty Start Date End Date Unknown, Provider, PCP - General 05/04/13 documented as of this encounter
--- OUTSIDE RECORDS SUMMARY | 2024-05-02 15:25 | XMS_ITS | Encounter Summary ---
Author Organization [facility] Address [address] [place] [address] Care Team Providers Care Pot Tender Name Role Phone Unknown, Provider Primary Care Provider Allison welch Encounter Details Date Type Department Care Team (Late st Contact Info) Description 07/01/2015 Results Only [facility] [phone] Karishma Velazquez MD [address] [place] [address] [place] [address] Social History Tobacco Use Types Packs/Day Years [...] Priority Date/Time Associated Diagnosis Comments SURGICAL PATHOLOGY Routine 07/01/2015 17 :20 EST documented in this encounter Results * SURGICAL PATHOLOGY (07/01/2015 17:20 EST) Pathology Report: SURGICAL PATHOLOGY REPORT Reports generated via electronic interface contain original data; however they are lacking the format of the original report. Caution should be taken when reading/interpret ing unformatted reports. Name: ? STEPHANIE MCCLENDON I ? Accession #: ? [id number] ? : ? 1950 (Age: 64) ??F ? Collect Date: ? 07/01/2015 ? Location: ? [facility] ? Receive Date: ? 07/01/2015 ? Provider: KARISHMA VELAZQUEZ MD Copy to: KATHY ROSSI MD ? Final Pathologic Diagnosis: ENDOMETRIUM, BIOPSY: - ??Strips of inactive endometrium. - ??Fragments of benign squamous and ectocervical mucosa. Document reviewed and electronically signed by: ANGEL CHOPRA MD Report ??Date: 07/03/2015 17:04 By the signature above, the attending physician certifies that he/she has personally conducted a gross and/or microscopic examination of the described specimens and rendered or confirmed the above diagnosis. Specimen(s) Received: Endometrial bx Clinical History: PMB, on vaginal estrogen Gross Description: ? Received in formalin labelled with proper patient identification (initials A, E) and endometrial bx is an aggregate of burgess-pink tissue fragments (1.0 x 1.0 x 0.4 cm). Submitted in toto in [address] Cortes 07/01/2015 6:30 PM End of Report [facility] 07/01/2015 17:2 0 EST 07/01/2015 17:20 EST us Karishma Velazquez MD PATHOLOGY ORDERABLES Final Resu lt [facility] [address] [place] [address] documented in this encounter Visit Diagnoses Not on filedocumented in this encounter Care Teams Pot Tender Relationship Specialty Start Date End Date Unknown, Provider, PCP - General 05/04/13 documented as of this encounter
--- OUTSIDE RECORDS SUMMARY | 2024-05-02 15:25 | XMS_ITS | Encounter Summary ---
Author Organization [facility] Address [address] [place] [address] Care Team Providers Care Candy Feeder Name Role Phone Unknown, Provider Primary Care Provider Unava ilable Encounter Details Date Type Department Care Team (Latest Contact Info) Description 07/01/2015 9:35 EST - 07/01/2015 23:59 EST Hospital Encounter [address] [address] Unknown, Provider, Discharge Disposition: Home or Self Care Social History Tobacco Use Types Packs/Day Years Used Date Smoking Tobacco: Never Assessed Comments Unknown Sex and Gender Information Value Date Recorded Sex Assigned at Not on file Legal Sex Female 18:22 EST Gender Identity Not on file Sexual Orientation Not on file documented as of this encounter Discharge Disposition Disposition Code Departure Means Destination Home or Self Detention documented in this encounter Plan of Treatment Not on file documented as of this encounter Visit Diagnoses Not on filedocumented in this encounter Care Teams Candy Feeder Relationship Specialty Start Date End Date Unknown, Provider, PCP - General 05/04/13 documented as of this encounter
[2024-05-02 19:49] LABS: HCT 30.5 % (36.0-46.0); HGB 8.4 g/dL (11.2-15.7); MPV 10.6 fL (8.0-11.0); Platelet Count 368 10^3/uL (130-400); RBC 4.42 10^6/uL (3.93-5.22); RDW-SD 39.9 fL; WBC 6.84 10^3/uL (4.4-10.8)
[2024-05-02 20:09] LABS: Hemoglobin A1C 6.3 % (<5.7)
[2024-05-02 20:11] LABS: ALT 22 U/L (14-59); AST 19 U/L (15-37); Albumin 4.2 g/dL (3.4-5.0); Alkaline Phosphatase 71 U/L (46-116); BUN 14 mg/dL (7-18); Bilirubin, Total 0.25 mg/dL (0.2-1.0); CREATININE 0.9 mg/dL (0.55-1.02); Calcium 9.6 mg/dL (8.5-10.1); Chloride 103 mmol/L (98-107); Estimated GFR 67.08 (mL/min/1.73m2); Glucose 94 mg/dL (74-106); Potassium 4.3 mmol/L (3.5-5.1); Sodium 142 mmol/L (136-145); TSH (W/Ref FT4) 1.57 uIU/mL (0.36-3.74); Total Protein 7.7 g/dL (6.4-8.2)
[2024-05-02 20:21] LABS: MCHC 27.5 % (32.0-36.0); MCV 69 fL (80-95); RDW 16.1 % (11.7-14.6)
== END 2024-05-02 15:12 | disposition home or self-care (01) ==
LOC: NCHCN 15:11
PROVIDERS: PCP Nurse Practitioner Family; Visit Provider Nurse Practitioner Family
DX: R73.03 Prediabetes (principal)
CPT/HCPCS: 80053; 85027; 83036; 84443

== ENCOUNTER → 2024-05-22 12:59 | Outpatient (BNVA) | payer MEDICARE, SELFPAY | PROVIDERS: PCP Nurse Practitioner Family; Referring Provider Nurse Practitioner Family; Visit Provider Student in an Organized Health Care Education/Training Program | DX: M17.11 Unilateral primary osteoarthritis, right knee (principal); M70.51 Other bursitis of knee, right knee; Z96.651 Presence of right artificial knee joint | CPT/HCPCS: 99214 ==

== ENCOUNTER 2024-05-23 22:42 | Outpatient (REF) | payer MEDICARE, SELFPAY ==
[2024-05-23 20:31] LABS: Iron 13 ug/dL (50-170); Total Iron Binding Capacity 487 ug/dL (250-450); Transferrin Sat 3 % (15-50)
[2024-05-23 21:34] LABS: Ferritin 7 ng/mL (8-252); Vitamin B12 415 pg/mL (193-986)
--- OUTSIDE RECORDS SUMMARY | 2024-05-23 22:44 | XMS_ITS | Encounter Summary ---
Author Organization [facility] Address [address] [place] [address] Care Team Providers Care Rod Piler Name Role Phone Unknown, Provider Primary Care Provider Allison ilable Encounter Details Date Type Department Care Team (Late st Contact Info) Description 12/05/2017 Results Only [facility] [phone] Iris Chamberlain, [address] [place] [address] Social History Tobacco Use Types [...] STEPHANIE MCCLENDON I ? Accession #: ? [id number] ? : ? 1950 (Age: 67) ??F ?Collect Date: ? 12/05/2017 ? Location: ? [facility] ? Receive Date: ? 2017 ? Provider: IRIS CHAMBERLAIN DEPUTY CLERK OF COURT Copy to: ? Final Report SPECIMEN ADEQUACY ? Satisfactory for Evaluation - transformation zone component present GENERAL CATEGORIZATION ? Negative for Intraepithelial Lesion or Malignancy ?? Last Menstrual Period: 1998 Specimen/Source: ??Pap Test, Cervix, ThinPrep Imaging System with manual evaluation Document reviewed and electronically signed by: ? Anamaria Bal, [facility](ASCP) ? Report ??Date: 12/18/2017 12:33 HPV with Pap Test ? Date Ordered: ? 12/18/2017 ? Status: ?? Signed Out ?Date Complete: ? 12/20/2017 ? By: ??System Interface ? Date Reported: ? 12/20/2017 ? Interpretation RESULT: Negative for HPV. No E6 or E7 mRNA is detected from HPV types 16,18,31,33,35, 39,45,51,52,56,58, 59,66, and 68 by operators teacher mediated amplification. Comments Document reviewed and electronically signed by: ? System Interface ? Report date: 12/20/2017 By the signature above, the attending physician certifies that he/she has personally conducted a gross and/or microscopic examination of the described specimens and rendered or confirmed the above diagnosis. End of Report [facility] 12/05/2017 2017 us Iris Chamberlain DEPUTY CLERK OF COURT PATHOLOGY ORDERABLES Final R esult [facility] [address] [place] [address] documented in this encounter Visit Diagnoses Not on filedocumented in this encounter Care Teams Rod Piler Relationship Specialty Start Date End Date Unknown, Provider, PCP - General 05/04/13 documented as of this encounter
--- OUTSIDE RECORDS SUMMARY | 2024-05-23 22:44 | XMS_ITS | Encounter Summary ---
Author Organization [facility] Address [address] [place] [address] Care Team Providers Care Dental Equipment Repairer Name Role Phone Unavailable Primary Care Provider Unavailabl e Encounter Details Date Type Department Care Team (Late st Contact Info) Description 09/18/2001 Results Only [facility] conversion [address] [place] [address] Aurora Adrian, FARNAZ Social History Tobacco Use [...] ? STEPHANIE MCCLENDON ? Accession #: ? [id number] : ? 1950 (Age: 50) ??F ?Collect Date: ? 09/18/2001 Location: ? [facility] ? Receive Date: ? 09/20/2001 Provider: ?AURORA ADRIAN PROOF INSPECTOR Copy to: ? Specimen/Source: ?ThinPrep Pap Test, Cervix/Endocervix Last Menstrual Period: ? 07/04/98 ? SPECIMEN ADEQUACY ? Satisfactory for Evaluation - transformation zone component present GENERAL CATEGORIZATION ? Negative for Intraepithelial Lesion or Malignancy ? Document reviewed and electronically signed by: ? Helga Armstrong, CT(ASCP) ? Report Date: ??09/26/2001 14:46 End of Report [facility] 09/18/2001 09/20/2001 us Aurora Adrian PROOF INSPECTOR PATHOLOGY ORDERABLES Final Re sult [facility] [address] [place] [address] documented in this encounter Visit Diagnoses Not on filedocumented in this encounter
--- OUTSIDE RECORDS SUMMARY | 2024-05-23 22:44 | XMS_ITS | Referral Summary ---
Author Organization [facility] Address [address] [place] [address] Care Team Providers Care Transformer Molder Name Role Phone Unknown, Provider Primary Care Provider Unava ilable Social History Tobacco Use Types Packs/Day Years Used Date Smoking Tobacco: Never Assessed Comments Unknown Sex and Gender Information Value Date Recorded Sex Assigned at Not on file Legal Sex Female 18:22 EST Gender Identity Not on file Sexual Orientation Not on file Plan of Treatment Not on file Insurance [employer] Care Teams Transformer Molder Relationship Specialty Start Date End Date Unknown, Provider, PCP - General 05/04/13
--- OUTSIDE RECORDS SUMMARY | 2024-05-23 22:44 | XMS_ITS | Clinical Summary ---
Author Organization [facility] Address [address] [place] [address] Care Team Providers Care Livestock Farm Workers Name Role Phone Unknown, Provider MD Primary [...] 75+ series) 2024 Insurance [employer] Care Teams Livestock Farm Workers Relationship Specialty Start Date End Date Unknown, Provider, PCP - General 05/04/13
--- OUTSIDE RECORDS SUMMARY | 2024-05-23 22:44 | XMS_ITS | Encounter Summary ---
Author Organization [facility] Address [address] [place] [address] Care Team Providers Care Wind Development Director Name Role Phone Unavailable Primary Care Provider Unavailabl e Encounter Details Date Type Department Care Team (Late st Contact Info) Description 01/06/2009 Orders Only [facility] - [facility] ([address] [address] Aurora Adrian, FARNAZ Social History [...] BLES Final Result [facility] [address] [place] [address] * CYTOPATHOLOGY (01/06/2009 0:00 EDT) Pathology Report: CYTOPATHOLOGY REPORT ? Reports generated via electronic interface contain original data; ? however they are lacking the format of the original report. ? Caution should be taken when reading/interpreti ng unformatted reports. ? Name: ? STEPHANIE MCCLENDON ? Accession #: ? [id number] ? : ? 1950 (Age: 58) ??F ?Collect Date: ? 01/06/2009 ? Location: ? [facility] ? Receive Date: ? 01/07/2009 ? Provider: ?AURORA M BREANNA TOOL DRESSER ? Copy to: ? Specimen/Source: ?Pap Test, [...] ? ERNESTO GARCIA 01/06/2009 01/07/2009 us Aurora Adrain TOOL DRESSER PATHOLOGY ORDERABLES Final Re sult [facility] [address] [place] [address] documented in this encounter Visit Diagnoses Not on filedocumented in this encounter
--- OUTSIDE RECORDS SUMMARY | 2024-05-23 22:44 | XMS_ITS | Clinical Summary ---
Author Organization [facility] [place] [address] Care Team Providers Care Ballet Master/Mistress Name Role Phone CoronaRama mendez Abhishek DELUCA Primary Care Provider [phone] Allergies No known active allergies Encounters Date Type Department Care Team Description 03/12/2024 Transcribe Orders [facility] Incoming Referrals [phone] Joe Downs MD Pes leanne bursitis; Arthritis [...] - PCV) 2014 Covid-19 Vaccine ( - season) 2024 Influenza (Flu) vaccine (1 o f 1 - Influenza standard series) 02/05/2024 Care Teams Ballet Master/Mistress Relationship Specialty Start Date End Date Rama Jeter, NURSE PRN [address] [place] [address] PCP - General Family Medicine 03/12/24
--- OUTSIDE RECORDS SUMMARY | 2024-05-23 22:44 | XMS_ITS | Encounter Summary ---
Author Organization [facility] Address [address] [place] [address] Care Team Providers Care Transmission Repairer Name Role Phone Unavailable Primary Care Provider Unavailabl e Encounter Details Date Type Department Care Team (Late st Contact Info) Description 03/29/2005 Results Only [facility] - Maple conversion [address] [place] [address] Iris Chamberlain, [facility] [address] [place] [address] [place] [address] Social History Tobacco Use Types [...] ? STEPHANIE MCCLENDON ? Accession #: ? [id number] : ? 1950 (Age: 54) ??F ?Collect Date: ? 03/29/2005 Location: ? [facility] ? Receive Date: ? 03/30/2005 Provider: ?IRIS CHAMBERLAIN CLINICAL SERVICES ASSISTANT Copy to: ? Specimen/Source: ?ThinPrep Pap Test, Cervix/Endocervix, processed on [employer] ThinPrep Imaging System, with manual evaluation Last [...] ERNESTO GARCIA 03/29/2005 03/30/2005 us Iris Chamberlain CLINICAL SERVICES ASSISTANT PATHOLOGY ORDERABLES Final R esult [facility] [address] [place] [address] documented in this encounter Visit Diagnoses Not on filedocumented in this encounter
--- OUTSIDE RECORDS SUMMARY | 2024-05-23 22:44 | XMS_ITS | Encounter Summary ---
Author Organization [facility] Address [address] [place] [address] Care Team Providers Care Curator Horticultural Museum Name Role Phone Unknown, Provider Primary Care Provider Allison welch Encounter Details Date Type Department Care Team (Late st Contact Info) Description 07/01/2015 Results Only [facility] [phone] Karishma Velazquez MD [address] [place] [address] [place] [address] Social History Tobacco Use Types Packs/Day Years [...] STEPHANIE MCCLENDON I ? Accession #: ? [id number] ? : ? 1950 (Age: 64) ??F [...] Cortes 07/01/2015 6:[address] [facility] 07/01/2015 17:2 0 EST 07/01/2015 17:20 EST us Karishma Velazquez MD PATHOLOGY ORDERABLES Final Resu lt [facility] [address] [place] [address] documented in this encounter Visit Diagnoses Not on filedocumented in this encounter Care Teams Curator Horticultural Museum Relationship Specialty Start Date End Date Unknown, Provider, PCP - General 05/04/13 documented as of this encounter
--- OUTSIDE RECORDS SUMMARY | 2024-05-23 22:44 | XMS_ITS | Encounter Summary ---
Author Organization [facility] Address [address] [place] [address] Care Team Providers Care Software Programmer Name Role Phone Unknown, Provider Primary Care Provider Unahamlet ilable Encounter Details Date Type Department Care Team (Late st Contact Info) Description 09/10/2020 Lab Requisition [facility] Pathology & Laboratory Medicine - [facility] [address] [place] [address] Cm Andrews MD [address] [place] [address] [place], [place] [id number] Encounter for other general examination Social History [...] metaplasia; Negative for dysplasia. 09/11/2020 13:46 EDT [facility] Attestation By the signature below, the attending physician certifies that they have 1) personally conducted a gross and/or microscopic examination of the described specimen(s), and/or personally interpreted the results of laboratory testing of the described specimen(s), and 2) personally rendered or confirmed the above diagnosis. 09/11/2020 13:46 [facility] at 1345 Clinical History GERD 09/11/2020 13:46 [facility] Gross Description A. Received in [...] C1. PAIGE HOANG(ASCP) 09/10/2020 16:39 09/11/2020 13:46 [facility] Performing Lab [facility] 13:46 [facility] Scanned Images 09/11/2020 13:46 [facility] Tissue ENTIRE ESOPHAGO-MARIANO BRENNEN MUCOSAL JUNCTION / Unknown 09/10/2020 11:30 EDT 09/10/2020 16:05 EDT Tissue specimen (specimen) STOMACH STRUCTURE / Unknown 09/10/2020 11:30 EDT 09/10/2020 16:05 EDT Tissue specimen (specimen) CARDIOESOPHAGEAL JUNCTION STRUCTURE / Unknown 09/10/2020 11:30 EDT 09/10/2020 16:05 EDT us Cm Andrews MD PATHOLOGY ORDERABLES Fin al Result [facility] [address] [place] [address] documented in this encounter Visit Diagnoses Diagnosis Encounter for other general examination documented in this encounter Care Teams Software Programmer Relationship Specialty Start Date End Date Unknown, Provider, PCP - General 05/04/13 documented as of this encounter
--- OUTSIDE RECORDS SUMMARY | 2024-05-23 22:44 | XMS_ITS | Encounter Summary ---
Author Organization [facility] [place] [address] Care Team Providers Care Physician Relations Manager Name Role Phone Rama Jeter APRN Primary Care Provider [phone] Reason for Referral * Consultation (Routine) - Closed Specialty Diagnoses / Procedures Referred By Ann Marie bruno Referred To Contact Orthopaedics Diagnoses Pes anserine bursitis Arthritis of both knees CONSIDER DIFFERENT INJECTIONS Joe Downs MD [address] [place] [address] Abrahan Shepherd MD [facility] [place] [address] Referral ID Status Reason Start Date Expiration Date V isits Requested Visits Authorized [id number] Closed Consult, Test & Treat PCP Updated and/or Approved 02/28/2024 08/27/2024 6 6 Encounter Details Date Type Department Care Team (Latest Contact Info) Description 03/12/2024 Transcribe Orders eD Incoming Referrals [phone] Joe Downs MD [address] [place], [place] [phone] Pes anserine bursitis; Arthritis of both knees Social History Tobacco Use Types Packs/Day Years Used Date Smoking Tobacco: Never Assessed Sex and Gender Information Value Date Recorded Sex Assigned at Not on file Gender Identity Not on file Sexual Orientation Not on file documented as of this encounter Plan of Treatment Scheduled Referrals Name Type Priority Associated Diagnoses Order Schedule Referral to Orthopaedics Outpatient Referral Routine Pes anserine bursitis Arthritis of both knees Ordered: 03/12/2024 documented as of this encounter Visit Diagnoses Diagnosis Pes anserine bursitis Pes anserinus tendinitis or bursitis Arthritis of both knees Unspecified arthropathy, lower leg documented in this encounter Care Teams Physician Relations Manager Relationship Specialty Start Date End Date Rama Jeter, ENDLESS TRACK VEHICLE [place] [address] PCP - General Family Medicine 03/12/24 documented as of this encounter
--- OUTSIDE RECORDS SUMMARY | 2024-05-23 22:44 | XMS_ITS | Encounter Summary ---
Author Organization [facility] Address [address] [place] [address] Care Team Providers Care Recovery Collector Name Role Phone Unknown, Provider Primary Care Provider Unava ilable Encounter Details Date Type Department Care Team (Latest Contact Info) Description 07/01/2015 9:35 EST - 07/01/2015 23:59 EST Hospital Encounter [address] [address] Unknown, Provider, Discharge Disposition: Home or Self [...] Code Departure Means Destination Home or Self Senior Care documented in this encounter Plan of Treatment Not on file documented as of this encounter Visit Diagnoses Not on filedocumented in this encounter Care Teams Recovery Collector Relationship Specialty Start Date End Date Unknown, Provider, PCP - General 05/04/13 documented as of this encounter
--- OUTSIDE RECORDS SUMMARY | 2024-05-23 22:44 | XMS_ITS | Encounter Summary ---
Author Organization [facility] Address [address] [place] [address] Care Team Providers Care Home Management Supervisor Name Role Phone Unavailable Primary Care Provider Unavailabl e Encounter Details Date Type Department Care Team (Late st Contact Info) Description 01/09/2007 Results Only [facility] [place] conversion [address] [place] [address] Aurora Adrian, FARNAZ Social History Tobacco Use [...] ? STEPHANIE MCCLENDON ? Accession #: ? [id number] : ? 1950 (Age: 56) ??F ?Collect Date: ? 01/09/2007 Location: ? [facility] ? Receive Date: ? 01/10/2007 Provider: ?AURORA ADRIAN CERTIFED REFRIGERATION OPERATOR Copy to: ? Specimen/Source: ?ThinPrep Pap Test, Cervix/Endocervix, processed on [employer] ThinPrep Imaging System, with manual evaluation [...] ORDERABLES Final Re sult [facility] [address] [place] [address] documented in this encounter Visit Diagnoses Not on filedocumented in this encounter
--- OUTSIDE RECORDS SUMMARY | 2024-05-23 22:44 | XMS_ITS | Encounter Summary ---
Author Organization [facility] Address [address] [place] [address] Care Team Providers Care Putty And Patch Worker Name Role Phone Unknown, Provider Primary Care Provider Allison ilable Encounter Details Date Type Department Care Team (Late st Contact Info) Description 05/02/2013 Results Only [facility] - [facility] ([address] [address] Aurora Adrian, RESEARCH TECHNOLOGIST Social History Tobacco Use Types Packs/Day Years [...] ng unformatted reports. Name: ? STEPHANIE MCCLENDON Enzo ? Accession #: ? [id number] ? : ? 1950 (Age: 62) ??F [...] types 16,18,31,33,35, 39,45,51,52,56,58, 59,66, and 68 by tractor technician mediated amplification. Comments Document reviewed and electronically [...] ORDERABLES Final Re sult [facility] [address] [place] [address] documented in this encounter Visit Diagnoses Not on filedocumented in this encounter Care Teams Putty And Patch Worker Relationship Specialty Start Date End Date Unknown, Provider, PCP - General 05/04/13 documented as of this encounter
[2024-05-25 09:07] LABS: Cyclic Citrullinated Peptide <2.5 U/mL (<5.0)
[2024-05-25 21:38] LABS: Tissue Transglutaminase Ab IgG <1.2 U/mL
== END 2024-05-23 22:43 | disposition home or self-care (01) ==
LOC: NCHCN 22:42
PROVIDERS: PCP Nurse Practitioner Family; Visit Provider Nurse Practitioner Family
DX: D50.9 Iron deficiency anemia, unspecified (principal)
CPT/HCPCS: 86200; 86364; 82607; 82728; 83540; 83550

== ENCOUNTER 2024-05-31 00:05 | Outpatient (CLI) | payer MEDICARE, SELFPAY ==
--- OUTSIDE RECORDS SUMMARY | 2024-05-31 00:06 | XMS_ITS | Encounter Summary ---
Author Organization [facility] Address [address] [place] [address] Care Team Providers Care Puncher And Fastener Name Role Phone Unknown, Provider Primary Care Provider Allison ilmily Encounter Details Date Type Department Care Team (Late st Contact Info) Description 05/24/2024 Lab Requisition [facility] Pathology & Laboratory Medicine - [facility] [address] [place], [place] [address] Outr Resulting Lab, Provider Social History Tobacco Use Types Packs/Day Years [...] Procedure Name Priority Date/Time Associated Diagnosis Comments CCP ANTIBODIES Routine 05/23/2024 16:00 EST documented in this encounter Results * CCP ANTIBODIES (05/23/2024 16:00 EST) CCP Antibodies <2.5 <5.0 U/mL 05/25/2024 9:02 EST [facility] Blood VENOUS BLOOD / Unknown 05/23/2024 16:00 EST 05/24/2024 17:17 EST us Provider Outr Resulting Lab IMMUNOLOGY AND SEROL OGY ORDERABLES Final Result [facility] [address] [place] [address] documented in this encounter Visit Diagnoses Not on filedocumented in this encounter Care Teams Puncher And Fastener Relationship Specialty Start Date End Date Unknown, Provider, PCP - General 05/04/13 documented as of this encounter
--- OUTSIDE RECORDS SUMMARY | 2024-05-31 00:06 | XMS_ITS | Referral Summary ---
Author Organization [facility] Address [address] [place] [address] Care Team Providers Care Cap Parts Cutter Name Role Phone Unknown, Provider Primary Care Provider Unava ilable Encounters Date Type Department Care Team Description 05/24/2024 Lab Requisition [facility] Pathology & Laboratory Medicine - [facility] [address] [place] [address] Outr Resulting Lab, Provider from Last 3 Months Social History Tobacco Use Types Packs/Day Years Used Date Smoking Tobacco: Never Assessed Comments Unknown Sex and Gender Information Value Date Recorded Sex Assigned at Not on file Legal Sex Female 18:22 EST Gender Identity Not on file Sexual Orientation Not on file Plan of Treatment Not on file Procedures Procedure Name Priority Date/Time Associated Diagnosis Comments CCP ANTIBODIES Routine 05/23/2024 16:00 EST from Last 3 Months Results * CCP ANTIBODIES (05/23/2024 16:00 EST) CCP Antibodies <2.5 <5.0 U/mL 05/25/2024 9:02 EST [facility] Blood VENOUS BLOOD / Unknown 05/23/2024 16:00 EST 05/24/2024 17:17 EST us Provider Outr Resulting Lab IMMUNOLOGY AND SEROL OGY ORDERABLES Final Result [facility] [address] [place], [place] [address] from Last 3 Months Insurance [employer] Care Teams Cap Parts Cutter Relationship Specialty Start Date End Date Unknown, Provider, PCP - General 05/04/13
--- OUTSIDE RECORDS SUMMARY | 2024-05-31 00:06 | XMS_ITS | Clinical Summary ---
Author Organization [facility] [place] [address] Care Team Providers Care Digital Media Sales Consultant Name Role Phone CoronaRama mendez Abhishek DELUCA Primary Care Provider [phone] Allergies No known active allergies Encounters Date Type Department Care Team Description 03/12/2024 Transcribe Orders [facility] [address] Incoming Referrals [phone] Joe Downs MD Pes leanne bursitis; Arthritis [...] Decision Needed 1989 Breast Cancer screening 1989 Pneumoccocal Vaccine: 65+ (1 of 1 - PCV) 12/09/1999 Zoster vaccine (1 of 2) 12/09/1999 Advance Directive 2004 Bone Density Scan 2014 Covid-19 Vaccine ( - season) 2024 Influenza (Flu) vaccine (1 o f 1 - Influenza standard series) 02/05/2024 Care Teams Digital Media Sales Consultant Relationship Specialty Start Date End Date Rama Jeter, TALENT ACQUISITION SOURCER [address] [place] [address] PCP - General Family Medicine 03/12/24
--- OUTSIDE RECORDS SUMMARY | 2024-05-31 00:06 | XMS_ITS | Encounter Summary ---
Author Organization [facility] Address [address] [place] [address] Care Team Providers Care Clerical Transcriber Name Role Phone Unavailable Primary Care Provider Unavailabl e Encounter Details Date Type Department Care Team (Late st Contact Info) Description 01/09/2007 Results Only [facility] [place] conversion [address] [place] [address] Aurora Adrian, FARNAZ Social History Tobacco Use [...] ? STEPHANIE MCCLENDON ? Accession #: ? [id number] : ? 1950 (Age: 56) ??F ?Collect Date: ? 01/09/2007 Location: ? [facility] ? Receive Date: ? 01/10/2007 Provider: ?AURORA ADRIAN MILLSTONE CLEANER Copy to: ? Specimen/Source: ?ThinPrep Pap Test, Cervix/Endocervix, processed on [employer] ThinPrep Imaging System, with manual evaluation Last [...] ORDERABLES Final Re sult [facility] [address] [place] [address] documented in this encounter Visit Diagnoses Not on filedocumented in this encounter
--- OUTSIDE RECORDS SUMMARY | 2024-05-31 00:06 | XMS_ITS | Encounter Summary ---
Author Organization [facility] [place] [address] Care Team Providers Care Cylinder Press Operator Name Role Phone Rama Jeter APRN Primary Care Provider [phone] Reason for Referral * Consultation (Routine) - Closed Specialty Diagnoses / Procedures Referred By Ann Marie bruno Referred To Contact Orthopaedics Diagnoses Pes anserine bursitis Arthritis of both knees CONSIDER DIFFERENT INJECTIONS Joe Downs MD [address] [place] [address] Abrahan Shepherd MD [facility] [address] [place] [address] Referral ID Status Reason Start Date Expiration Date V isits Requested Visits Authorized [id number] Closed Consult, Test & Treat PCP Updated and/or Approved 02/28/2024 08/27/2024 6 6 Encounter Details Date Type Department Care Team (Latest Contact Info) Description 03/12/2024 Transcribe Orders eD Incoming Referrals [phone] Joe Downs MD [address] [place], [place] [phone] Pes anserine bursitis; Arthritis of both knees [...] leg documented in this encounter Care Teams Cylinder Press Operator Relationship Specialty Start Date End Date Rama Jeter, INDUSTRIAL MAINTENANCE REPAIRER [place] [address] PCP - General Family Medicine 03/12/24 documented as of this encounter
--- OUTSIDE RECORDS SUMMARY | 2024-05-31 00:06 | XMS_ITS | Encounter Summary ---
Author Organization [facility] Address [address] [place] [address] Care Team Providers Care Assistant Superintendent Name Role Phone Unavailable Primary Care Provider Unavailabl e Encounter Details Date Type Department Care Team (Late st Contact Info) Description 01/06/2009 Orders Only [facility] Laboratory Services - [facility] ([address] [address] Aurora Adrian, FARNAZ Social History [...] BLES Final Result [facility] [address] [place] [address] * CYTOPATHOLOGY (01/06/2009 0:00 EDT) Pathology Report: CYTOPATHOLOGY REPORT ? Reports generated via electronic interface contain original data; ? however they are lacking the format of the original report. ? Caution should be taken when reading/interpreti ng unformatted reports. ? Name: ? STEPHANIE MCCLENDON ? Accession #: ? [id number] ? : ? 1950 (Age: 58) ??F ?Collect Date: ? 01/06/2009 ? Location: ? [facility] ? Receive Date: ? 01/07/2009 ? Provider: ?AURORA M BREANNA PHYSICAL FITNESS TRAINER ? Copy to: ? Specimen/Source: ?Pap Test, [...] ERNESTO GARCIA 01/06/2009 01/07/2009 us Aurora Adrian PHYSICAL FITNESS TRAINER PATHOLOGY ORDERABLES Final Re sult [facility] [address] [place] [address] documented in this encounter Visit Diagnoses Not on filedocumented in this encounter
--- OUTSIDE RECORDS SUMMARY | 2024-05-31 00:06 | XMS_ITS | Encounter Summary ---
Author Organization [facility] Address [address] [place] [address] Care Team Providers Care Document Management Technician Name Role Phone Unavailable Primary Care Provider Unavailabl e Encounter Details Date Type Department Care Team (Late st Contact Info) Description 03/29/2005 Results Only [facility] - [place] conversion [address] [place] [address] Iris Chamberlain, [facility] [address] [place] [address] [place] [address] Social History Tobacco Use Types [...] ? STEPHANIE MCCLENDON ? Accession #: ? [id number] : ? 1950 (Age: 54) ??F ?Collect Date: ? 03/29/2005 Location: ? [facility] ? Receive Date: ? 03/30/2005 Provider: ?IRIS CHAMBERLAIN ELECTRICAL RESEARCH ENGINEER Copy to: ? Specimen/Source: ?ThinPrep Pap Test, Cervix/Endocervix, processed on [employer] ThinPrep Imaging System, with manual evaluation Last [...] ERNESTO GARCIA 03/29/2005 03/30/2005 us Iris Chamberlain ELECTRICAL RESEARCH ENGINEER PATHOLOGY ORDERABLES Final R esult [facility] GARCIA [address] [place] [address] documented in this encounter Visit Diagnoses Not on filedocumented in this encounter
--- OUTSIDE RECORDS SUMMARY | 2024-05-31 00:06 | XMS_ITS | Encounter Summary ---
Author Organization [facility] Address [address] [place] [address] Care Team Providers Care Anodic Operator Name Role Phone Unknown, Provider Primary Care Provider Unahamlet ilable Encounter Details Date Type Department Care Team (Late st Contact Info) Description 09/10/2020 Lab Requisition [facility] Pathology & Laboratory Medicine - [facility] [address] [place] [address] Cm Andrews MD [address] [place] [address] [place] [address] Encounter for other general examination [...] metaplasia; Negative for dysplasia. 09/11/2020 13:46 EDT [facility] Attestation By the signature below, the attending physician certifies that they have 1) personally conducted a gross and/or microscopic examination of the described specimen(s), and/or personally interpreted the results of laboratory testing of the described specimen(s), and 2) personally rendered or confirmed the above diagnosis. 09/11/2020 13:46 [facility] at 1345 Clinical History GERD 09/11/2020 13:46 [facility] Gross Description A. Received [...] C1. PAIGE HOANG(ASCP) 09/10/2020 16:39 09/11/2020 13:46 [facility] Performing Lab [facility] 13:46 [facility] Scanned Images 09/11/2020 13:46 [facility] Tissue ENTIRE ESOPHAGO-MARIANO BRENNEN MUCOSAL JUNCTION / Unknown 09/10/2020 11:30 EDT 09/10/2020 16:05 EDT Tissue specimen (specimen) STOMACH STRUCTURE / Unknown 09/10/2020 11:30 EDT 09/10/2020 16:05 EDT Tissue specimen (specimen) CARDIOESOPHAGEAL JUNCTION STRUCTURE / Unknown 09/10/2020 11:30 EDT 09/10/2020 16:05 EDT us Cm Andrews MD PATHOLOGY ORDERABLES Fin al Result [facility] [address] [place] [address] documented in this encounter Visit Diagnoses Diagnosis Encounter for other general examination documented in this encounter Care Teams Anodic Operator Relationship Specialty Start Date End Date Unknown, Provider, PCP - General 05/04/13 documented as of this encounter
--- OUTSIDE RECORDS SUMMARY | 2024-05-31 00:06 | XMS_ITS | Encounter Summary ---
Author Organization [facility] Address [address] [place] [address] Care Team Providers Care Transportation Officer Name Role Phone Unknown, Provider Primary Care Provider Unava ilable Encounter Details Date Type Department Care Team (Latest Contact Info) Description 07/01/2015 9:35 EST - 07/01/2015 23:59 EST Hospital Encounter [address] [address] Unknown, Provider, Discharge Disposition: Home or Self [...] Code Departure Means Destination Home or Self [facility] documented in this encounter Plan of Treatment Not on file documented as of this encounter Visit Diagnoses Not on filedocumented in this encounter Care Teams Transportation Officer Relationship Specialty Start Date End Date Unknown, Provider, PCP - General 05/04/13 documented as of this encounter
--- OUTSIDE RECORDS SUMMARY | 2024-05-31 00:06 | XMS_ITS | Encounter Summary ---
Author Organization [facility] Address [address] [place] [address] Care Team Providers Care Martial Arts Instructor Name Role Phone Unknown, Provider Primary Care Provider Allison ilable Encounter Details Date Type Department Care Team (Late st Contact Info) Description 12/05/2017 Results Only [facility]- [facility] [phone] Iris Chamberlain, [address] [place] [address] Social History Tobacco Use Types [...] STEPHANIE MCCLENDON I ? Accession #: ? [id number] ? : ? 1950 (Age: 67) ??F ?Collect Date: ? 12/05/2017 ? Location: ? [facility] ? Receive Date: ? 2017 ? Provider: IRIS CHAMBERLAIN CORRECTIONAL MEDICINE PHYSICIAN Copy to: ? Final Report SPECIMEN ADEQUACY ? Satisfactory for Evaluation - transformation zone component present GENERAL CATEGORIZATION ? Negative for Intraepithelial Lesion or Malignancy ?? Last Menstrual Period: 1998 Specimen/Source: ??Pap Test, Cervix, ThinPrep Imaging System with manual evaluation Document reviewed and electronically signed by: ? Anamaria Bal, [facility](ASCP) ? Report ??Date: 12/18/2017 12:33 HPV with Pap Test ? Date Ordered: ? 12/18/2017 ? Status: ?? Signed Out ?Date Complete: ? 12/20/2017 ? By: ??System Interface ? Date Reported: ? 12/20/2017 ? Interpretation RESULT: Negative for HPV. No E6 or E7 mRNA is detected from HPV types 16,18,31,33,35, 39,45,51,52,56,58, 59,66, and 68 by dye range feeder mediated amplification. Comments Document reviewed and electronically signed by: ? System Interface ? Report date: 12/20/2017 By the signature above, the attending physician certifies that he/she has personally conducted a gross and/or microscopic examination of the described specimens and rendered or confirmed the above diagnosis. End of Report [facility] 12/05/2017 2017 us Iris Chamberlain CORRECTIONAL MEDICINE PHYSICIAN PATHOLOGY ORDERABLES Final R esult [facility] [address] [place] [address] documented in this encounter Visit Diagnoses Not on filedocumented in this encounter Care Teams Martial Arts Instructor Relationship Specialty Start Date End Date Unknown, Provider, PCP - General 05/04/13 documented as of this encounter
--- OUTSIDE RECORDS SUMMARY | 2024-05-31 00:06 | XMS_ITS | Clinical Summary ---
Author Organization [facility] Address [address] [place] [address] Care Team Providers Care Front Desk Agent Name Role Phone Unknown, Provider Primary Care Provider Unava ilable Encounters Date Type Department Care Team Description 05/24/2024 Lab Requisition [facility] Pathology & Laboratory Medicine - [address] [address] Outr Resulting Lab, Provider from Last 3 [...] 1950 Fall Risk Screening 2014 COVID-19 Vaccine ( season) 2024 RSV Immunization ( o r 60+ Years) (1 - 1-dose 75+ series) 2024 Procedures Procedure Name Priority Date/Time Associated Diagnosis Comments CCP ANTIBODIES Routine 05/23/2024 16:00 EST from Last 3 Months Results * CCP ANTIBODIES (05/23/2024 16:00 EST) CCP Antibodies <2.5 <5.0 U/mL 05/25/2024 9:02 EST [facility] Blood VENOUS BLOOD / Unknown 05/23/2024 16:00 EST 05/24/2024 17:17 EST us Provider Outr Resulting Lab IMMUNOLOGY AND SEROL OGY ORDERABLES Final Result [facility] [address] [place] [address] from Last 3 Months Insurance [employer] Care Teams Front Desk Agent Relationship Specialty Start Date End Date Unknown, Provider, PCP - General 05/04/13
--- OUTSIDE RECORDS SUMMARY | 2024-05-31 00:06 | XMS_ITS | Encounter Summary ---
Author Organization [facility] Address [address] [place] [address] Care Team Providers Care Computer Science Teacher Name Role Phone Unknown, Provider Primary Care Provider Allison welch Encounter Details Date Type Department Care Team (Late st Contact Info) Description 07/01/2015 Results Only [facility] [phone] Karishma Velazquez MD [address] [place] [address] [place] [address] Social History Tobacco Use Types Packs/Day Years [...] STEPHANIE MCCLENDON I ? Accession #: ? [id number] ? : ? 1950 (Age: 64) ??F [...] Cortes 07/01/2015 6:30 PM End of Report [facility] 07/01/2015 17:2 0 EST 07/01/2015 17:20 EST us Karishma Velazquez MD PATHOLOGY ORDERABLES Final Resu lt [facility] [address] [place] [address] documented in this encounter Visit Diagnoses Not on filedocumented in this encounter Care Teams Computer Science Teacher Relationship Specialty Start Date End Date Unknown, Provider, PCP - General 05/04/13 documented as of this encounter
--- OUTSIDE RECORDS SUMMARY | 2024-05-31 00:06 | XMS_ITS | Encounter Summary ---
Author Organization [facility] Address [address] [place] [address] Care Team Providers Care Registered Nurse Cardiac Telemetry Name Role Phone Unknown, Provider Primary Care Provider Allison ilable Encounter Details Date Type Department Care Team (Late st Contact Info) Description 05/02/2013 Results Only [facility] - [facility] ([address] [address] Aurora Adrian, DIRECTOR OF PULMONARY UNIT Social History Tobacco Use Types Packs/Day Years [...] STEPHANIE MCCLENDON Enzo ? Accession #: ? [id number] ? : ? 1950 (Age: 62) ??F [...] types 16,18,31,33,35, 39,45,51,52,56,58, 59,66, and 68 by control engineer mediated amplification. Comments Document reviewed and electronically [...] ORDERABLES Final Re sult [facility] [address] [place] [address] documented in this encounter Visit Diagnoses Not on filedocumented in this encounter Care Teams Registered Nurse Cardiac Telemetry Relationship Specialty Start Date End Date Unknown, Provider, PCP - General 05/04/13 documented as of this encounter
--- OUTSIDE RECORDS SUMMARY | 2024-05-31 00:07 | XMS_ITS | Encounter Summary ---
Author Organization [facility] Address [address] [place] [address] Care Team Providers Care Labor Relations Supervisor Name Role Phone Unavailable Primary Care Provider Unavailabl e Encounter Details Date Type Department Care Team (Late st Contact Info) Description 09/18/2001 Results Only [facility] [place] [facility] [address] [place] [address] Aurora Adrian, FARNAZ Social History Tobacco Use [...] ? STEPHANIE MCCLENDON ? Accession #: ? [id number] : ? 1950 (Age: 50) ??F ?Collect Date: ? 09/18/2001 Location: ? [facility] ? Receive Date: ? 09/20/2001 Provider: ?AURORA ADRIAN CHERRY GROWER Copy to: ? Specimen/Source: ?ThinPrep Pap Test, Cervix/Endocervix Last Menstrual Period: ? 07/04/98 ? SPECIMEN ADEQUACY ? Satisfactory for Evaluation - transformation zone component present GENERAL CATEGORIZATION ? Negative for Intraepithelial Lesion or Malignancy ? Document reviewed and electronically signed by: ? Helga Armstrong, [place](ASCP) ? Report Date: ??09/26/2001 14:46 End of Report [facility] 09/18/2001 09/20/2001 us Aurora Adiran CHERRY GROWER PATHOLOGY ORDERABLES Final Re sult [facility] [address] [place] [address] documented in this encounter Visit Diagnoses Not on filedocumented in this encounter
--- NOTE | 2024-05-31 06:45 | DI.CT_ITS ---
Exam(s) CT LOWER EXTREMITY RT WO EXAM: CT LOWER EXTREMITY RT WO CLINICAL HISTORY: R KNEE PAIN, DJD RT KNEE, S/P RT KNEE REPLACEMENT, M17.11, Z96.651. TECHNIQUE: Imaging Protocol: Axial computed tomography images with coronal and sagittal reformatted images were created and reviewed. CONTRAST MATERIAL: Noncontrast COMPARISON: CR XR KNEE RT 2V AP,LAT from 07/21/2022 CR XR KNEE RT 2V AP,LAT from 12/27/2023 FINDINGS: Medial femoral tibial joint space prosthesis creates artifact. Bones: There is no evidence of fracture or dislocation. No cellulitic or osteomyelitic changes are identified. No lytic or sclerotic lesions are identified. Joints: Medial femoral tibial joint space prosthesis is in satisfactory position. No evidence of loo sening. Mild spurring from the lateral femoral condyle and lateral tibial plateau. Mild spurring at the oskar cular aspect of the patella. Lateral patellofemoral joint space narrowing. Soft Tissues: Normal. IMPRESSION: Medial femoral tibial joint space prosthesis is unremarkable. No evidence of loosening. Narrowing of the lateral patellofemoral joint space. RADIATION DOSE DELIVERED: 183.43mGy.cm Total DLP DATA REPOSITORY: All CT scans at this facility are submitted to the National Radiology Data Registry (NRDR) Dose Index Registry (DIR) with the [employer] (ACR). RADIATION OPTIMIZATION: All CT scans at this facility use at least one of these dose optimization te chniques: automated exposure control; mA and/or kV adjustment per patient size (includes targeted exa ms where dose is matched to clinical indication); or iterative reconstruction.
== END 2024-05-31 00:25 ==
PROVIDERS: PCP Nurse Practitioner Family; Visit Provider Student in an Organized Health Care Education/Training Program
DX: M17.11 Unilateral primary osteoarthritis, right knee
CPT/HCPCS: 85027; 85652; 73700; 86140

== ENCOUNTER → 2024-06-27 14:50 | Outpatient (BNVA) | payer MEDICARE, SELFPAY | PROVIDERS: PCP Nurse Practitioner Family; Referring Provider Nurse Practitioner Family; Visit Provider Student in an Organized Health Care Education/Training Program | DX: M17.11 Unilateral primary osteoarthritis, right knee (principal); M70.51 Other bursitis of knee, right knee; M70.52 Other bursitis of knee, left knee; Z96.651 Presence of right artificial knee joint | CPT/HCPCS: 99214 ==

== ENCOUNTER 2024-07-05 13:55 | Outpatient (REF) | payer MEDICARE, SELFPAY ==
[2024-07-05 16:10] LABS: ESR 9 mm/hr (0-30); HCT 38.9 % (36.0-46.0); HGB 11.7 g/dL (11.2-15.7); MCH 23.1 pg (27.0-33.0); MCV 77 fL (80-95); MPV 11.1 fL (8.0-11.0); RBC 5.06 10^6/uL (3.93-5.22); RDW-SD 61.1 fL; WBC 6.33 10^3/uL (4.4-10.8)
[2024-07-05 16:55] LABS: RDW 22.7 % (11.7-14.6)
[2024-07-05 16:56] LABS: MCHC 30.1 % (32.0-36.0); Platelet Count 282 10^3/uL (130-400)
[2024-07-05 17:06] LABS: Ferritin 27 ng/mL (8-252)
[2024-07-05 17:07] LABS: C-Reactive Protein < 0.50 mg/dL (<or=0.5)
[2024-07-05 18:13] LABS: Iron 27 ug/dL (50-170); Total Iron Binding Capacity 420 ug/dL (250-450); Transferrin Sat 6 % (15-50)
== END 2024-07-05 13:56 | disposition home or self-care (01) ==
LOC: NCHCN 13:55
PROVIDERS: PCP Nurse Practitioner Family; Visit Provider Nurse Practitioner Family
DX: D50.9 Iron deficiency anemia, unspecified (principal)
CPT/HCPCS: 85027; 85652; 82728; 83540; 83550; 86140

== ENCOUNTER → 2024-08-06 13:35 | Outpatient (BNVA) | payer MEDICARE, SELFPAY | PROVIDERS: PCP Nurse Practitioner Family; Visit Provider Student in an Organized Health Care Education/Training Program | DX: Z47.1 Aftercare following joint replacement surgery (principal); Z96.651 Presence of right artificial knee joint; M70.51 Other bursitis of knee, right knee; M70.52 Other bursitis of knee, left knee | CPT/HCPCS: 99214; J1010 ==

== ENCOUNTER 2024-10-24 16:01 | Outpatient (REF) | payer MEDICARE, SELFPAY ==
[2024-10-24 20:27] LABS: HCT 39.6 % (36.0-46.0); HGB 12.7 g/dL (11.2-15.7); MCH 26.8 pg (27.0-33.0); MCHC 32.1 % (32.0-36.0); MCV 84 fL (80-95); MPV 11.7 fL (8.0-11.0); Platelet Count 265 10^3/uL (130-400); RBC 4.74 10^6/uL (3.93-5.22); RDW 12.5 % (11.7-14.6); RDW-SD 38.2 fL; WBC 6.16 10^3/uL (4.4-10.8)
[2024-10-24 21:03] LABS: ALT 27 U/L (14-59); AST 28 U/L (15-37); Alkaline Phosphatase 72 U/L (46-116); Anion Gap 8.3 mmol/L (3-11); BUN 10 mg/dL (7-18); Bilirubin, Total 0.4 mg/dL (0.2-1.0); CO2 27.7 mmol/L (21.0-32.0); CREATININE 0.8 mg/dL (0.55-1.02); Calcium 9.7 mg/dL (8.5-10.1); Chloride 101 mmol/L (98-107); Estimated GFR 77.27 (mL/min/1.73m2); Ferritin 27 ng/mL (8-252); Glucose 102 mg/dL (74-106); Potassium 4.1 mmol/L (3.5-5.1); Sodium 137 mmol/L (136-145); TSH (W/Ref FT4) 2.76 uIU/mL (0.36-3.74); Total Protein 7.2 g/dL (6.4-8.2)
[2024-10-24 21:30] LABS: Hemoglobin A1C 6.5 % (<5.7)
[2024-10-24 21:46] LABS: Iron 61 ug/dL (50-170); Total Iron Binding Capacity 433 ug/dL (250-450); Transferrin Sat 14 % (15-50)
== END 2024-10-24 16:02 | disposition home or self-care (01) ==
LOC: NCHCN 16:01
PROVIDERS: PCP Nurse Practitioner Family; Visit Provider Nurse Practitioner Family
DX: Z01.818 Encounter for other preprocedural examination (principal)
CPT/HCPCS: 80053; 85027; 82728; 83036; 83540; 83550; 84443

== ENCOUNTER 2024-10-25 11:24 | Outpatient (CLI) | payer MEDICARE, SELFPAY ==
--- NOTE | 2024-10-25 11:15 | RT.EKG_ITS ---
APPROVED REPORT Exam: Resting ECG Reason for Exam: follow up needed Patient Location: O HR:59 bpm ECG Measurements Heart Rate 59 AXIS NC 188 P 67 QRSd 97 QRS -13 QT 483 T 36 QTc 479 Conclusion Sinus rhythm...normal P axis, V-rate 50- 99 Probable left atrial enlargement...P >50mS, <-0.10mV V1 Otherwise normal ECG
== END 2024-10-25 11:25 | disposition home or self-care (01) ==
PROVIDERS: PCP Nurse Practitioner Family; Visit Provider Nurse Practitioner Family
DX: Z13.6 Encounter for screening for cardiovascular disorders (principal); I51.7 Cardiomegaly
CPT/HCPCS: 93005; 93010

== ENCOUNTER 2024-11-06 00:47 | Outpatient (CLI) | payer MEDICARE, SELFPAY ==
--- NOTE | 2024-11-06 | DI.US_ITS ---
APPROVED REPORT EXAM: Comprehensive 2D, Doppler, and color-flow Echocardiogram Patient Location: Out-Patient Lumber Material Handler: Benita Barnett RDCS (AE) Indications: Pre operative exam, Systolic murmur Other Information Study Quality: Adequate Conclusion Normal left ventricular wall thickness and chamber size. Ejection fraction is 60%. Wall motion is n ormal Normal right ventricular size and function Mildly dilated left atrium. Normal right atrial size Aortic valve is mildly sclerotic and trileaflet with trace regurgitation Mitral annular calcification. Mild mitral regurgitation Estimated right ventricular systolic pressure is 25 mmHg Ascending aorta measures 3.42 cm Wall motion Left Ventricle The left ventricle is normal size. The left ventricular systolic function is normal. The left ventric ular ejection fraction is within the normal range. There is normal left ventricular wall thickness. T here is normal LV segmental wall motion. There is no ventricular septal defect visualized. LVEF is 60 %. Right Ventricle The right ventricle is normal size. The right ventricular systolic function is normal. Atria Left atrium is mildly dilated. The right atrium size is normal. The interatrial septum is intact with no evidence for an atrial septal defect. Aortic Valve The Aortic valve is mildly sclerotic. Aortic valve is trileaflet. There is no aortic valvular stenosi s. Trace aortic regurgitation. Mitral Valve Mitral annular calcification. No evidence of mitral valve stenosis. Mild mitral regurgitation. Tricuspid Valve The tricuspid valve is normal in structure. There is no tricuspid valve stenosis. Trace tricuspid reg urgitation. The RVSP is 25.1mmHg. Pulmonic Valve The pulmonary valve is normal in structure. There is no pulmonic valvular stenosis. There is no pulmo [place] valvular regurgitation. Great Vessels The aortic root is normal in size. The ascending aorta is mildly dilated. Aortic arch is normal in ca liber. IVC is normal in size and collapses >50% with inspiration. Pericardium There is no pericardial effusion. 2D Dimensions IVSD d PLAX 1.20 cm F: 0.6-1.0 Ao Root d 3.00 cm F: 2.7 - 3.3 LVPW d PLAX 1.20 cm F: 0.6 - 1.0 Ao Asc Diam d 3.42 cm F: 2.3 - 3.1 LVID d PLAX 4.41 cm F: 3.8 - 5.2 LVDs 3.12 cm F: 2.2 - 3.5 LV EF Teichholz 56.1 % FS 29.10 % LV EDV (Teich) 88.0 mL LV ESV (Teich) 38.6 mL M-Mode TAPSE 2.49 cm (M/F) >1.7 Auto EF LV EDV A4C 75.6 mL LV EDV A2C 84.0 mL LV EDV BP 80.4 mL LV ESV A4C 33.0 mL LV ESV A2C 38.6 mL LV ESV BP 35.4 mL LVEF(%) A4C 56.3 % LVEF(%) A2C 54.0 % LVEF(%) BP 56.0 % LV SV A4C 42.5 ml LV SV A2C 45.3 ml LV SV BP 45.0 ml LV CO A4C 2.6 L/min LV CO A2C 2.8 L/min LV CO BP 2.7 L/min HR A4C 61.44 BPM HR A2C 61.86 BPM LV EDV Index (BP) LA Volume LA Length A4C 5.1 cm LA Length A2C 5.8 cm LA Area A4C s 21.70 cm2 LA Area A2C s 21.21 cm2 LA Vol A4C A-L 78.68 mL LA Vol A2C A-L 65.76 mL LA Vol Biplane A-L 76.9 mL LA Vol/BSA A4C A-L LA Vol/BSA A2C A-L LA Vol/BSA BP A-L 36.4 mL/m2 LA Vol A4C MOD 72.3 mL LA Vol A2C MOD 61.8 mL LA Vol BP MOD 71.3 mL RA Volume RA Area A4C 11.2 cm2 RA ESV A4C (A-L) 22.8mL RA Vol/BSA A4C A-L RA Length A4C 4.7 cm RA ESV A4C (MOD) 21.3mL LV Diastology MV E' medial 0.052 (>0.07 m/s) MV E Vmax 0.95 (0.4-1.3 m/s) MV E/E' MED 18.10 (<14) MV A Vmax 1.60 (0.4-1.3 m/s) MV E' lateral 0.061 (>0.1 m/s) E/A Ratio 0.6 MV E/E' LAT 15.46 (<14) MV E' Average 0.057 m/s MV E/E'(average) 16.68 Aortic Valve AoV Vmax 1.77 m/s LVOT Vmax 1.45 m/s AoV Peak Grad 12.6 mmHg LVOT Peak Grad 8.4 mmHg AoV Area (Vmax) 2.57 cm2 LVOT VTI 0.306 m AoV VTI 0.437 m LVOT Mean Grad 4.2 mmHg AoV Mean Bennie. 1.22 m/s LVOT SV 96.40 mL AoV Mean Grad 6.8 mmHg LVOT Diam s 2.00 cm AoV Area (VTI) 2.20 cm2 AV Regurg Peak Gr. 12.57 mmHg Velocity Ratio 0.82 Mitral Valve MV DT 465 (160-240 msec) MV Vmax TIPS 1.63 m/s MV Mean Grad 3.4 (<2mmHg) MV VTI 0.501 m Pulmonary Valve PV Vmax 1.03 (0.5-1.5 m/s) RVOT Vmax 0.88 m/s PV Peak Grad 4.2 mmHg RVOT Peak Gr. 3.1 mmHg PV Mean Bennie 0.70 m/s RVOT VTI 0.205 m PV Mean Grad 2.3 mmHg RVOT Mean Gr. 1.8 mmHg Tricuspid Valve RA Pressure 3.00 mmHg TR Vmax 2.35 m/s TV S' 0.16 m/s TR Peak Grad 22.0 mmHg RVSP (TR) 25.1 mmHg
== END 2024-11-06 01:07 ==
LOC: DI 00:48
PROVIDERS: PCP Nurse Practitioner Family; Visit Provider Internal Medicine Cardiovascular Disease
DX: R01.1 Cardiac murmur, unspecified (principal)
CPT/HCPCS: 93306

== ENCOUNTER 2024-11-12 02:22 | Outpatient (CLI) | payer MEDICARE, SELFPAY ==
[2024-11-12 15:12] LABS: HCT 39.7 % (36.0-46.0); HGB 12.5 g/dL (11.2-15.7); MCH 26.7 pg (27.0-33.0); MCHC 31.5 % (32.0-36.0); MCV 85 fL (80-95); MPV 10.8 fL (8.0-11.0); Platelet Count 263 10^3/uL (130-400); RBC 4.68 10^6/uL (3.93-5.22); RDW-SD 39.9 fL; WBC 7.17 10^3/uL (4.4-10.8)
[2024-11-12 15:15] LABS: ESR 9 mm/hr (0-30)
[2024-11-12 15:40] LABS: Anion Gap 6.8 mmol/L (3-11); BUN 15 mg/dL (7-18); CO2 30.2 mmol/L (21.0-32.0); CREATININE 0.9 mg/dL (0.55-1.02); Calcium 9.9 mg/dL (8.5-10.1); Chloride 103 mmol/L (98-107); Estimated GFR 67.08 (mL/min/1.73m2); Glucose 132 mg/dL (74-106); Potassium 4.2 mmol/L (3.5-5.1); Sodium 140 mmol/L (136-145)
[2024-11-12 16:53] LABS: C-Reactive Protein < 0.50 mg/dL (<or=0.5)
== END 2024-11-12 02:23 | disposition home or self-care (01) ==
LOC: LBO 02:22
PROVIDERS: Student in an Organized Health Care Education/Training Program; PCP Nurse Practitioner Family; Visit Provider Student in an Organized Health Care Education/Training Program
DX: Z96.651 Presence of right artificial knee joint (principal); M17.11 Unilateral primary osteoarthritis, right knee; Z01.818 Encounter for other preprocedural examination
CPT/HCPCS: 36415; 80048; 85027; 85652; 86140

== ENCOUNTER 2024-11-12 13:37 | Outpatient (CLI) | payer MEDICARE, SELFPAY ==
--- NOTE | 2024-11-12 13:00 | DI.RAD_ITS ---
Exam(s) XR KNEE RT 1V XR STANDING ALIGNMENT EXAM: XR STANDING ALIGNMENT and XR knee RT 1 V CLINICAL HISTORY: PRE OP. TECHNIQUE: 2D digital imaging was performed. Five images were obtained. COMPARISON: CR XR STANDING ALIGNMENT from 11/10/2021 CR XR KNEE RT 2V AP,LAT from 07/21/2022 CR XR KNEE RT 2V AP,LAT from 12/27/[address] LOWER EXTREMITY RT WO from 05/31/2024 FINDINGS: BONES: The hips are well maintained. In the left hip, there are mild degenerative change present pat racterized by narrowing of the medial femoral tibial joint and osteophytes in the lateral femoral tib ial joint. There is a unicompartment right knee arthroplasty again noted. Degenerative changes are also seen in the lateral femoral tibial joint and the patellofemoral joint the right knee. The ankle s are well maintained.There is no significant leg length discrepancy. SOFT TISSUE: Normal. IMPRESSION: Osteoarthritis of the knees bilaterally, right greater than left. DATA REPOSITORY: RADIATION DOSE DELIVERED:
== END 2024-11-12 13:38 | disposition home or self-care (01) ==
LOC: DIORS 13:38
PROVIDERS: PCP Nurse Practitioner Family; Referring Provider Nurse Practitioner Family; Visit Provider Physician Assistant
DX: Z01.818 Encounter for other preprocedural examination (principal); M17.11 Unilateral primary osteoarthritis, right knee
CPT/HCPCS: 99024; 73560; 77073

== ENCOUNTER 2024-11-20 15:35 | Inpatient (IN) | payer MEDICARE, SELFPAY ==
[2024-11-20] VITALS (45 sets, daily range): BP systolic 115–156; BP diastolic 46–119; PULSE 65–86; RESP 9–18; TEMP 35.8–36.8; O2SAT 89–97; BMI 34.5
--- NOTE | 2024-11-20 07:30 | PDOC.DSDIS_ITS ---
Date of service: 11/20/24 Discharge Plan Disposition Patient Disposition: Home Condition: Good Discharge Details Reason For Visit: Painful right UKA Attending Provider: Teto Baker Primary Care Provider: MANDI PATEL Home Meds and New Rx's Prescriptions: New celecoxib [Celebrex] 200 mg capsule 200 mg PO BID PRNQty: 60 0RF Rx Instructions: Take one tablet twice daily for pain and inflammation aspirin 81 mg tablet,delayed release (DR/EC) 81 mg PO BID 30 Days Qty: 60 0RF acetaminophen 500 mg tablet 1,000 mg PO Q8H PRN Qty: 90 0RF Rx Instructions: Take two tablets up to every 8 hours as needed for pain pantoprazole 40 mg tablet,delayed release (DR/EC) 40 mg PO DAILY Qty: 14 0RF dexamethasone 4 mg tablet 4 mg PO DAILY Qty: 2 0RF Rx Instructions: Take one tablet once daily for two days docusate sodium [Colace] 100 mg capsule 100 mg PO BID Qty: 28 0RF gabapentin 300 mg capsule 300 mg PO QHS Qty: 14 0RF Rx Instructions: Take one tablet at bedtime oxycodone 5 mg tablet 5 mg PO Q4H PRNQty: 18 0RF Rx Instructions: Take one tablet up to every 4 hours as needed for severe postoperative pain Continued ferrous sulfate 325 mg (65 mg iron) tablet 325 mg PO DAILY gabapentin 100 mg capsule 100 mg PO DAILY levothyroxine 25 MCG tablet 25 mcg PO DAILY alendronate 70 mg tablet 70 mg PO .WEEKLY Patient Comments: TAKE 1 TABLET WEEKLY rosuvastatin 10 mg tablet 10 mg PO DAILY lisinopril-hydrochlorothiazide 10-12.5 mg tablet 2 tab PO DAILY Discharge Instructions Additional Instructions: Total Knee Discharge Instructions Activity: The most important activity is to walk and to work on gentle motion (both flexion and extension). You should try to take short walks a few times a day. It is important that when resting you work on keeping the knee straight. Avoid putting a pillow behind the knee as this will encourage flexion. Work on range of motion exercises as provided by Physical Therapy. - Start outpatient physical therapy within 2 weeks. - You should wear the JOSE hose on both legs for 2 weeks. You may remove these at night. You may also use any compression sock in place of the JOSE hose. - Utilize [employer] to review exercises, see videos on exercises and obtain basic information pertaining to your surgery and your recovery. Dressing: Remove the Christofer wrap by 2 days after your surgery and put on the JOSE stocking given to you from the hospital. Keep the surgical dressing (underneath the CHRISTOFER wrap) in place for at least one week. After the first week it may be removed and replaced with light gauze and tape or nothing. The wound and dressing may get wet after 3 days but avoid soaking the dressing or otherwise it will need to be changed. Many people prefer covering the dressing with cling wrap (saran wrap) to minimize it from getting soaked. If it gets wet, just pat dry. If it starts to peel off then it will need to be changed. Medications: - You should take Tylenol and anti-inflammatory Celebrex as your primary pain control medications. If the Celebrex is too expensive or not covered, please call the office for another alternative (Advil/Ibuprofen or Naproxen/Aleve) - You have been prescribed a stronger pain medication Oxycodone for breakthrough pain, take as needed as prescribed. - You have also been prescribed a stomach acid reduction agent Pantoprozole to help reduce stomach acid and reflux. - You have been prescribed Gabapentin 300 mg to take for a bedtime dose - take this increased dosage at night for restlessness and nerve pain. - You will be taking Aspirin 81mg twice a day for DVT prevention unless instructed otherwise. - You have also been prescribed Decadron to take to control post-operative nausea and pain. You will start this tomorrow. - If you have constipation you should take Colace (which has been prescribed) or Miralax (which is available [id number]). It takes most people 3-4 days to have a bowel movement. Follow-up: 2 weeks If you have any acute concerns or questions, please do not hesitate to contact the office at [phone]. You may contact Dr. Baker with any questions after hours through the hospital at [phone] or on his cell phone at [phone]. Referrals: Teto Baker MD [ [facility] STAFF PHYSICIAN, Orthopaedic Surgical] Equipment/Supplies: Walker Activity:: Elevate Remove Dressings/Wound Care:: Do Not Remove Shower/Bathe:: Cover Diet:: As Tolerated
[2024-11-20] MEDS: Celecoxib 200 MG CAP 400 MG PO (10:26)
[2024-11-20] MEDS: Gabapentin 300 MG CAP PO ×2 (10:27→20:01)
[2024-11-20] MEDS: Acetaminophen 500 MG TAB 1000 MG PO ×2 (10:27→20:02)
[2024-11-20] MEDS: Lactated Ringers 1,000 ML 80 ML IV (10:31)
--- NOTE | 2024-11-20 11:00 | W.ANESPRE ---
General Info Date of Service Date Performed: 11/20/24 Height: 5 ft 7 in Weight: 100 kg Body Mass Index (BMI): 34.5 Surgical Procedure: Operation Date: 11/20/24 12:55 Proposed Procedure Side Surgeon p Knee Total Revision- ATTUNE Right Teto Baker MD Meds Allergies and Home Medications Allergies Allergy/AdvReac Type Severity Reaction Status Date / Time No Known Allergies Allergy Verified 11/20/24 10:06 Home Medication ?Medication ?Instructions ?Recorded levothyroxine 25 mcg tablet 25 mcg PO DAILY 01/29/16 alendronate 70 mg tablet 70 mg PO .WEEKLY 09/15/21 rosuvastatin 10 mg tablet 10 mg PO DAILY 09/15/21 lisinopril 10 2 tab PO DAILY 07/21/22 mg-hydrochlorothiazide 12.5 mg tablet ferrous sulfate 325 mg (65 mg 325 mg PO DAILY 06/27/24 iron) tablet gabapentin 100 mg capsule 100 mg PO DAILY 11/12/24 acetaminophen 500 mg tablet 1,000 mg (2 x 500 mg) PO Q8H PRN 11/20/24 pain #90 tabs aspirin 81 mg tablet,delayed 81 mg PO BID 30 days #60 tabs 11/20/24 release celecoxib 200 mg capsule (Celebrex) 200 mg PO BID PRN #60 caps 11/20/24 dexamethasone 4 mg tablet 4 mg PO DAILY #2 tabs 11/20/24 docusate sodium 100 mg capsule 100 mg PO BID #28 caps 11/20/24 (Colace) gabapentin 300 mg capsule 300 mg PO QHS #14 caps 11/20/24 oxycodone 5 mg tablet 5 mg PO Q4H PRN #18 tabs 11/20/24 pantoprazole 40 mg tablet,delayed 40 mg PO DAILY #14 tabs 11/20/24 release Current Visit Medications: Current Medications Generic Name Dose Route Start Last Admin Trade Name Freq PRN Reason Stop Dose Admin Acetaminophen 1,000 mg 11/20/24 06:00 11/20/24 10:27 Acetaminophen 500 Mg Tab PO 11/20/24 23:59 1,000 mg PREOP LINDA Administration Celecoxib 400 mg 11/20/24 06:00 11/20/24 10:26 Celecoxib 200 Mg Cap PO 11/20/24 23:59 400 mg PREOP LINDA Administration Droperidol 0.625 mg 11/20/24 07:13 Droperidol 5 Mg/2 Ml Vial IVP 12/20/24 07:12 DIRECTED PRN Ephedrine Sulfate 0 mg 11/20/24 07:13 Ephedrine 25 Mg/5 Ml Syringe IVP 12/20/24 07:12 DIRECTED PRN Fentanyl 0 mcg 11/20/24 07:13 Fentanyl 100 Mcg/2 Ml Vial IVP 12/20/24 07:12 DIRECTED PRN Gabapentin 300 mg 11/20/24 06:00 11/20/24 10:27 Gabapentin 300 Mg Cap PO 11/20/24 23:59 300 mg PREOP LINDA Administration Hydromorphone HCl 0 mg 11/20/24 07:13 Hydromorphone 2 Mg/Ml Syr IVP 12/20/24 07:12 DIRECTED PRN Hydromorphone HCl 0.5 mg 11/20/24 07:28 Hydromorphone 2 Mg/Ml Syr IVP 12/20/24 07:27 Q2H PRN PRN Ringer's Solution 1,000 mls @ 80 mls/hr 11/20/24 06:00 11/20/24 10:31 IV 11/20/24 23:59 80 mls/hr INFUSION LINDA Administration Cefazolin Sodium/Dextrose 2 gm in 50 mls @ 100 mls/hr 11/20/24 06:00 Ancef Duplex IVPB 11/20/24 23:59 PREOP LINDA Tranexamic Acid/Sodium Chloride 1,000 mg in 100 mls @ 600 mls/hr 11/20/24 06:00 IVPB 11/20/24 23:59 PREOP LINDA Cefazolin Sodium/Dextrose 1 gm in 50 mls @ 100 mls/hr 11/20/24 08:00 Ancef Duplex IVPB 11/21/24 00:29 Q8H LINDA IV Miscellaneous Supplies 1 each 11/20/24 06:00 Iv Access IV 11/20/24 23:59 DIRECTED LINDA Naloxone HCl 0 mg 11/20/24 07:13 Naloxone 0.4 Mg/Ml Vial IVP 12/20/24 07:12 PRN PRN Oxycodone HCl 0 mg 11/20/24 07:28 Oxycodone 5 Mg Tab PO 12/20/24 07:27 Q3H PRN PRN Pain Sodium Chloride 0 ml 11/20/24 06:00 Normal Saline Flush 10 Ml Syr IV 11/20/24 23:59 PRN PRN Sodium Chloride 0 ml 11/20/24 06:00 Normal Saline 10 Ml Vial IJ 11/20/24 23:59 DIRECTED PRN Sterile Water 0 ml 11/20/24 06:00 Water,Injection,Sterile 10 Ml Vial IJ 11/20/24 23:59 DIRECTED PRN Tranexamic Acid 1,300 mg 11/20/24 07:28 Tranexamic Acid 650 Mg Tab PO 12/20/24 07:27 ONCE PRN postoperative PFSH Active Problems Active Problems: Problem Status Onset Code Arthritis of right knee Acute M17.11 Painful total knee replacement, right Acute T84.84XA, Z96.651 Pes anserinus bursitis of both knees Acute M70.51, M70.52 Status post unicompartmental knee replacement, right Acute 12/24/21 Z96.651 Peptic reflux esophagitis Acute K21.00 Helicobacter positive gastritis Acute K29.70, B96.81 Prediabetes Acute R73.03 Hypothyroid Chronic E03.9 Medical History Medical History Degenerative joint disease of right knee s/p right unicompartment knee replacement DOSL 12/24/21 Steroid injection: 08/06/24; 09/15/2021 COVID-19 vaccine administered Acquired hypothyroidism (12/05/17) Elevated lipids (12/05/17) 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 Unsure what it was. Surgical History Surgical History History of esophagogastroduodenoscopy (EGD) (~09/2020) History of tonsillectomy Biopsy of breast L breast x 2 biopsies 1998 Dx adenosis /benign Tobacco Smoking/Tobacco Use Status: Former Tobacco Use Passive smoking exposure: No Alcohol Alcohol Intake: current Alcohol intake frequency: holidays/special occasions only Substance Use Substance use: Never Substance use type: does not use Vital Signs and Lab Results Vital Signs Most Recent Vital Signs in EMR: Most Recent Vital Signs Temp Pulse Resp BP Pulse Ox 36.6 C 65 18 147/70 H 96 11/20/24 10:08 11/20/24 10:08 11/20/24 10:08 11/20/24 10:08 11/20/24 10:08 Lab Results Complete Blood Count: WBC, (4.4-10.8) 7.17 10^3/uL 11/12/24, 14:29 RBC, (3.93-5.22) 4.68 10^6/uL 11/12/24, 14:29 Hgb, (11.2-15.7) 12.5 g/dL 11/12/24, 14: Hct, (36.0-46.0) 39.7 % 11/12/24, 14: Plt Count, (130-400) 263 10^3/uL 11/12/24, 14:29 Complete Metabolic Panel: Sodium, (136-145) 140 mmol/L 11/12/24, 14: Potassium, (3.5-5.1) 4.2 mmol/L 11/12/24, 14: Chloride, (98-107) 103 mmol/L 11/12/24, 14: Carbon Dioxide, (21.0-32.0) 30.2 mmol/L 11/12/24, 14:29 BUN, (7-18) 15 mg/dL 11/12/24, 14:29 Creatinine, (0.55-1.02) 0.9 mg/dL 11/12/24, 14:29 Est GFR (CKD-EPI 2020), (mL/min/1.73m2) 67.08 11/12/24, 14:29 Calcium, (8.5-10.1) 9.9 mg/dL 11/12/24, 14: Albumin, (3.4-5.0) 4.0 g/dL 10/24/24, 15:40 Glucose, (74-106) 132 mg/dL H 11/12/24, 14:29 Hemoglobin A1c, (<5.7) 6.5 % H 10/24/24, 15:40 C-Reactive Protein, (<or=0.5) < 0.50 mg/dL 11/12/24, 14:29 Liver Function Panel: ALT, (14-59) 27 U/L 10/24/24, 15:40 AST, (15-37) 28 U/L 10/24/24, 15:40 Thyroid Panel: TSH, (0.36-3.74) 2.76 uIU/mL 10/24/24, 15:40 Anesthesia Assessment and Plan Anesthesia History Personal History: No History of Anesthesia Complications Family History: No Family History of Anesthesia Complications and Other Exercise Tolerance Exercise Tolerance: Metabolic Equivalents>4 Pertinent Negatives Pertinent Negatives: No Symptoms of GERD, No Major Cardiovascular Symptoms or Complaints, No Major Pulmonary Symptoms or Complaints and No History of CVA/TIA Cardiac & Pulmonary Exam Cardiac Exam: Normal S1/S2 Heart Sounds Pulmonary Exam: Clear Bilateral Breath Sounds Implantable Cardiac Device Does patient have a Pacemaker or an ICD?: No Airway Exam Known Difficult Airway: No Mallampati Class: 3 Mouth Opening: Normal (> 3cm) Thyromental Distance: Less than 3 cm Neck Range of Motion: Full ROM Neck Circumference: Normal Teeth Condition: Normal Dentition ASA Classification ASA Score: ASA 2 Emergency Case?: No NPO Status NPO Status: NPO Clears >2 hours, Solids >8 hours Anesthesia Plan Resuscitation Status: Full Code Anesthesia Technique: Spinal Anesthesia Airway Planned: Natural Airway Pain Management: Surgeon and patient request nerve block Monitors Used: Standard Monitors
--- NOTE | 2024-11-20 11:28 | W.ANESNERVE ---
Nerve Block Single Injection Procedure Date and Time Date Performed: 11/20/24 Procedure Start: 11:22 Location Where Procedure Performed Procedure Location: Day Surgery Unit Reason Performed: Postoperative Analgesia Requesting Provider: Teto Baker Timeout Performed Timeout Performed: Yes Monitoring Used ECG, Blood Pressure, SpO2 and See EMR for corresponding vital signs Sterility Sterility: Hand Hygiene, Surgical Cap, Surgical Mask, Sterile Gloves, Eye Protection and Chlorhexidine Sedation Given During Procedure Sedation Given (Indicate Dose Given): No Sedation given Patient Mental Status Patient Mental Status: Awake Nerve Block 1st Nerve Block: Laterality: Right Block Type: Adductor Canal Ultrasound Image Saved?: Yes Needle / Catheter Used: 120mm SonoPlex II Local Anesthetic Bolus (Indicate Dose Given): Lidocaine used for local infiltration of skin, Injected in 3-5ml increments after negative blood aspiration, Bupivacaine 0.5% Dose:: 10 ml and Exparel Dose:: 10 ml Additives (Indicate Dose Given): Normal Saline Ultrasound: Sterile probe cover and gel used Nerve Stimulator: Supplement to Ultrasound use Paresthesia: Right Paresthesia Duration: Transient Post Procedure Pain score (0-10): 0 Procedure Tolerated: No Complications and Patient tolerated well Procedure Outcome: Successful Performed By: Myles Cornelius Supervised By: Josh Vieyra
[2024-11-20] MEDS: ceFAZolin 2 GM/50 ML BAG IVPB (11:42)
[2024-11-20] MEDS: TRANEXAMIC ACID/SOD. CHL. 1,000 MG/100 ML BAG 600 MG IVPB (11:45)
--- NOTE | 2024-11-20 14:01 | ROE_ITS ---
Operative Note Operative Note PRE-OP DIAGNOSIS: Painful Unicompartmental Knee Arthroplasty and Adjacent Lateral Compartment Arthritis - RIGHT POST-OP DIAGNOSIS: same PROCEDURE: Conversion of Unicompartmental Arthroplasty to Total Knee Arthroplasty with Intraoperative Navigation - RIGHT Knee SURGEON: Teto Baker MAINTENANCE PAINTER: Jennifer Guthrie ANESTHESIA TYPE: Spinal Refer to Anesthesia Record ESTIMATED BLOOD LOSS: 150 PATHOLOGY: none sent TOURNIQUET TIME: 0 COMPLICATIONS: None Patient was transported to: PACU Patient's condition: stable Implants: 1. Depuy Attune Cruciate Retaining Femoral Component, Size 5 2. Depuy Attune Fixed Bearing Tibial Component, Size 5 3. Depuy Attune 5x14 CR, FB Poly 4. Depuy Attune Patellar Component, Size 38 Indications: I have seen Porsha in clinic for symptoms of continued pain after a right unicompartment knee replacement. Unfortunate, she continue with pain about the knee, more global than just the medial side of the knee. This progressed and persisted. She had confirmatory injection which provided some pain relief although short-lived. Given the global pain about the knee and failure of other nonoperative options I did offer a conversion knee arthroplasty from the partial knee replacement to a total knee replacement. I discussed the details of this procedure. I explained the risks of the procedure to include, but not limited to, bleeding, infection, pain, stiffness, fracture, damage to nerves and vessels, damage to muscles and tendons, loosening, need for repeat procedure, blood clot and cardiopulmonary demise. Despite these risks, Porsha elected to proceed. Findings: There was no gross malpositioning or loosening of the components. The tibial component had potentially some debonding between the metal and the cement posteriorly. No signs of infection or other significant bony erosions. There was chondromalacia seen within the lateral compartment primarily as well as some at the apex and lateral facet of the patella. Procedure Description: Porsha was greeted in the preoperative holding area where the correct side was identified and marked. The consent was reviewed with the patient and signed. The history and physical was updated. All questions were answered. Preoperative medications were administered: Acetaminophen 1000mg, Celebrex 400mg, Gabapentin 300mg. An adductor canal block was then administered by the anesthesia team in the [facility]. She was taken back to the operating room. A spinal anesthestic was then administered. The patient was placed into the supine position on the operating room table. Posts were placed for positioning during the procedure. All bony prominences were well padded. Prophylactic antibiotics in the form of Cefazolin were administered. 1g of Tranxemic Acid was given intravenously within 30 minutes of incision. The right leg was then prepped with Chloraprep and draped in a standard fashion with impervious stockinette and extremity drape with Iodine impregnated skin protection. A timeout to confirm correct identity, side and site, procedure, allergies, anesthesia, and medical concerns was performed. With the knee in some flexion, a midline incision was made overlying the knee. Full thickness skin flaps were raised once the extensor mechanism was encountered. These were raised medially and laterally. Any bleeding was controlled with electrocautery. Once the extensor mechanism was fully exposed, a medial parapatellar arthrotomy was performed in a flexed position. All bleeding from the arthrotomy and the geniculate arteries was coagulated. A medial subperiosteal peel was performed with electrocautery to the midcoronal plane. The fat pad was removed while keeping the patellar tendon protected. The anterior distal femur synovium was removed for later visualization. The ACL and PCL were resected and the anterior horn of the lateral meniscus was transected. The knee was then flexed with the patella everted. Large osteophytes from the femur were removed. The unicompartmental arthroplasty device was seen. There is no gross signs of loosening. I used a rongeur to evaluate the bone?cement?metal interface of the femur. I then utilized a small oscillating saw as well as a flexible osteotome to remove the femoral component. This was done circumferentially around the entirety of the component. It appeared loose and a mallet was utilized to remove the remainder of the component. However, there is a central section between the 2 pegs which had bone loss. Otherwise the implant was removed without significant difficulty and no signs of gross loosening. A single starting pin was then placed 1cm anterior to the PCL insertion and the notch in the direction of the femoral head. The OrthoAlign device was applied over the pin. It was oriented to be in line with the epicondylar axis and the trochlear groove. It was then pinned into place. The navigation computer was then turned on and calibrated. The distal femur cut was set at 0 degrees varus/valgus and 3.5 degrees flexion. The distal femur cutting guide then was positioned for a 9mm cut. The distal femur was cut with an oscillating saw while protecting the soft tissues. The tibia was then addressed. The OrthoAlign device was placed over the tibial tubercle and medial tibia and secured into position. Once again, OrthoAlign was calibrated and then set for a 2 degrees varus cut and 5 degrees of posterior slope. With this locked into position, the cut thickness stylus was used to assess cut thickness from the lateral side, set just below the medial implant. This was then held in position and pinned into place with 2 additional pins and a cross pin for stability. The medial and lateral collateral ligaments were protected and the cut was performed. The lateral plateau was removed with an osteotome exposing the base of the medial tibial implant. I was unable to remove completely underneath the implant with a saw and therefore I utilized flexible osteotomes to work around the periphery of the tibia to fully release it from any bone cement underlying it. Once this was completed around the periphery, the tibial component was removed. This was once again cut now with the tibial component gone making sure to remove any remnant cement. After the cut was completed any areas of remnant cement were removed from the tibia, from the base of the trough and pin sites. Then, the Orthoalign gap balancing device was then placed in extension. This was used to ensure that the ligaments were properly balanced. The extension gap was measured as 25mm. The knee was then brought into 90 degrees of flexion and the ligament career development associate was once again placed. Under the same amount of force the flexion gap was measured. The Attune specific jig was placed and the flexion gap was made to match the extension gap. The distal femur was then sized. The anterior stylus was placed onto the lateral ridge of the anterior femur. This indicated a size 5 femur. The 4-in-1 cutting guide was the placed. The posterior medial femur cut was evaluated and appeared of good thickness. The spacer block was inserted underneath the cutting guide and stability was confirmed in 90 degrees of flexion. An ulices wing was used to confirm appropriate position of the anterior cut to avoid notching. This cutting guide was ensured to be flush on the cut surface and then pinned into place with headed pins. While protecting the soft tissues, quad tendon, and collateral ligaments, the anterior and posterior cuts were performed with a saw. The central two pins were removed and the posterior and anterior chamfers were cut next. The notch-cutting guide was placed. This was pinned to lateralize the femoral component as much as possible while keeping it flush on the cut surface. This was then pinned into position. A small oscillating saw was used to make the notch cut. A trial cruciate retaining femoral component was then inserted, impacted down to the cut surfaces, and the lug holes were drilled. A provisional trial tibial component was placed and the knee was brought through range of motion. The polyethylene was trialed until there was good flexion and extension. The patella was tracking without thumbs. Interestingly, there was excellent balance from extension to about 40 degrees. In the mid flexion zone there is no laxity with valgus stress testing and the medial collateral ligament was tight but there was some opening with varus stress with the lateral compartment. This maintained a small amount of laxity to a deep flexion, approximately 110 degrees and deeper where it seemed open up significantly more. At this point I did check the post lateral corner which had palpable fibular head which was intact. The LCL was palpable. However, there seem to be a defect in the posterolateral corner of the popliteus was still present but seemingly translated given the congruity of the medial aspect of the knee through entire range of motion I did not adjust any of my component placement. The tibial cut surface was fully exposed. The lateral menisci was removed. The tibia was then sized as a 5. The tibia had been previously marked during trialing to correspond to the center of the tibial component to help with rotation. The trial was aligned to this ave, approximately rotated to the medial 1/3rd of the tibial tubercle. The trial was pinned into place. The tibia was prepared with a reamer and a keel punch. The knee was then brought into extension and the patella was measured as 25mm. Using the patellar clamp and cut guide, this was resected to a flat surface with at least 13mm of thickness remaining. The size 38mm patella fit the best. This was oriented and then clamped into position. The lugs were drilled. The trial components were removed. The final components, except for the polyethylene were opened on the back table. The periosteal and capsular tissues, especially posteriorly, around the knee were then systematically injected with a periarticular cocktail consisting of 246mg of Ropivacaine, 0.5mg of Epinephrine, 0.08mg of Clonidine, and 30mg of Ketorolac, diluted to 100cc. The tourniquet was then inflated to 275mmHg. The knee was thoroughly irrigated with a pulse lavage and dried. On the back table, with the implants opened, the cement was mixed. 2 batches of medium viscosity cement were prepared with vacuum assistance. After the cement was ready a small amount was placed on to the back side of the tibial component at the keel. A small amount was placed onto the posterior flange of the femur. Cement was manual pressurized and impregnated into the cut surface of the tibia. The tibial component was then inserted into the cut surface and impacted into position. Excess cement was removed and the component was reimpacted. Again, excess cement was removed and our attention was then turned to the femur. The femoral cut surface was once again dried and cement was manually impacted into the cut surface. The femoral component was lined with the lug holes and impacted. Excess cement was removed. It was ensured to be down against the cut surface. The trial polyethylene was then inserted and the leg was brought out into full extension for the duration of the cement curing process, approximately 15min. Cement was lastly manually impacted into the cut surface of the patella and the patellar button was clamped into position and held. During this process attention was turned to the gutters of the knee and for all interfaces for any excess cement. The knee was then thoroughly irrigated with Surgiphor Betadine solution. It was allowed to sit in the knee for 3 minutes before being irrigated out with saline. After the cement had finally cured, approximately 15min, the clamp was removed from the patella and the knee was taken through range of motion. A size 14mm polyethylene component provided the best range of motion and stability with less than 2mm gapping with medial and lateral stress and full extension without significant hyperextension. The patella was tracking with a no-thumbs technique. The trial poly was removed and once again the knee was checked for any loose, excess, or errant cement. The poly component was then inserted into position after cleaning and drying the tibial tray. The capsule was then reapproximated with a #2 FiberWire and a no. 1 Vicryl at multiple locations. The capsule was finally closed with a No. 2 Stratafix, barbed suture. The tourniquet was then released and the arthrotomy appeared watertight without significant bleeding. The second dosing of 1g TXA was started. Deep tissues were then reapproximated with 0 Vicryl and 2-0 Vicryl. The skin was closed with a running 3-0 Monocryl in a subcuticular fashion. This was reinforced with skin glue. A Mepilex silver dressing was applied along with a [id number] wrap. A CryoCuff was applied. Porsha was transferred to the hospital bed without difficulty an suffering no apparent complication. She has a good prognosis. Physical therapy will start today and without restrictions, weight-bearing as tolerated. Aspirin 81mg BID will be used for DVT prophylaxis. Date of Procedure: 11/20/24
--- NOTE | 2024-11-20 15:09 | W.ANESPOSTOP ---
Postoperative Evaluation Date, Time and Location Date Performed: 11/20/24 Time Performed: 15:09 Patient Location: PACU Vital Signs Most Recent Imported Vital Signs: Most Recent Vital Signs Temp Pulse Resp BP Pulse Ox 36.3 C L 74 14 127/53 L 91 L 11/20/24 15:08 11/20/24 15:00 11/20/24 15:00 11/20/24 14:56 11/20/24 15:00 Pain Score Most Recent Pain Score: Most Recent Pain Score Pain Level 0 11/20/24 15:08 Assessment Mental Status: Awake (Alert & Oriented to Patient Baseline) Airway and Respiratory Function: Patent airway with normal (patient baseline) respiratory exam Cardiovascular Function: Hemodynamically Stable Hydration Status: Adequately Hydrated Nausea & Vomiting: No Nausea or Vomiting Pain: Pt. Denies Any Pain Peripheral Nerve Block: Regional nerve block not resolved at time of post operative discharge
--- NOTE | 2024-11-20 17:31 | IN_ITS ---
PT Notes Visit Reasons: Painful right UKA Physical Therapy Inpatient Initial Evaluation Date: 11/20/2024 Referring Doctor: Jennifer Guthrie/Dr. Baker PT Orders: PT CONSULT: Status post Ortho surgery Precautions: WBAT RLE Patient Profile/Admitting Diagnosis: Patient is 73-year-old female presenting status post elective right TKA revision under spinal anesthesia with nerve block. Postop uncomplicated PMHX:Arthritis of right knee (Acute) Painful total knee replacement, right (Acute) Pes anserinus bursitis of both knees (Acute) Status post unicompartmental knee replacement, right (Acute 12/24/21) Peptic reflux esophagitis (Acute) Helicobacter positive gastritis (Acute) Prediabetes (Acute) Hypothyroid (Chronic) Medical History (Updated 08/08/24 @ 05:24 by Teto Baker MD) Degenerative joint disease of right knee s/p right unicompartment knee replacement DOSL 12/24/21 Steroid injection: 08/06/24; 2COVID-19 vaccine administered Acquired hypothyroidism (12/05/17) Elevated lipids (12/05/17) 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 Patient reports she has 3 steps to her porch then flight of stairs to bed which include 4 steps a landing then 7 steps. Patient independent ambulation without assistive device independent ADLs, home management, yard management positive driving. Equipment Owned/DME: FWW Subjective: Patient reports she mowed her lawn yesterday. Objective: [] General Observation: Female semireclined in bed with Cryo/Cuff to right knee IV fluids infusing left upper extremity Mental Status: Alert and oriented x 4 able to follow instructions, cooperative. Pain: 3/10 right knee ROM: [] Right Upper Extremity: WNL Left Upper Extremity: WNL Right Lower Extremity: Hip and ankle WNL knee 0-92 Left Lower Extremity: WNL Strength: [] BUE: 5/5 Left lower extremity: 5/5 Right lower Extremity: Patient demonstrates strong quad set inability to perform straight leg raise without lag through shortened range. Sensation: Intact bilateral lower extremities Bed Mobility/Transfers: [] Supine to sit contact-guard assist with increased time Sit to stand supervision with cues to push up from surface Stand to sit supervision with cues to reach back Bed to chair supervision with FWW and verbal cues for hand placement and safe approach to surface Gait: Ambulated with FWW 35 feet with supervision demonstrating reduced knee flexion on right during swing phase Balance: [] Static Sitting: Normal Dynamic Sitting: Good Static Standing: Good Dynamic Standing: Fair plus Special Tests: [] Mobility Limitations Standardized Measure [] [facility] AM-PAC 6 clicks Basic Mobility Inpatient Short Form: [] Raw Score: 17 CMS Score: 50.57% Informed Consent/Education: Patient instructed in purpose of PT consult. Treatment: 08190 packet containing TKA exercise protocol has been given to patient. Education and training on initial set of 10 reps of exercises that can be done at home have been completed with patient. 92393: Transfers with FWW various surfaces including bed commode chair with supervision and cues for proper hand placement. Patient with poor carryover of hand placement from surface to surface. Assessment: Patient is a 73-year-old female who presents with clinical signs and symptoms consistent with current/admitting diagnoses that have resulted to mobility limitations, gait instability, generalized weakness, and impairment of motor control as demonstrated by the following impairment level findings: 1. Decreased strength to right knee major muscle groups 2. Impaired standing balance 3. Limitation of joint range of motion in right knee 4. Pain right knee 5. Impaired functional activity tolerance Impairments are contributing to the following functional limitations: 1. Inability to safely ambulate without assistive device 2. Increase completion time for mobility ADL performance 3. Increased fall risk 4. Decline in transfer skills 5. Difficulty performing stairs independently Patient is assessed as a low complexity based on the following: History: 73-year-old female with impairment level findings, functional limitations, and past medical history as indicated above Examination: Demonstrable impairment in strength, balance, and mobility level with underlying impairments and functional limitations as documented above Presentation: Stable Decision Making: Low Goals: 1. Independent bed mobility 2. Independent transfers with FWW 3. Independent ambulation with FWW greater than 100 feet 4. Supervision 5 steps with rail step to pattern 5. Independent home exercise program per TKA protocol Plan of Care/Treatment Plan: PT evaluation and 1-2 treatment session only for functional mobility training using recommended AD and for HEP instruction. DISCHARGE RECOMMENDATIONS: Home with HEP and outpatient PT as scheduled. TREATMENT CODE/TIME: 16229, 02174,00087/ 4:30pm-5:15 pm Thank you for the opportunity to participate in the care of this patient. Iman Ortiz PT [facility]
--- NOTE | 2024-11-20 17:53 | W.PC.ACHO ---
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) Vaginal wall prolapse (05/02/13) Hypercholesterolemia GERD (gastroesophageal reflux disease) Obesity L breast adenosis History of hypertension (Last Reviewed 11/20/24 @ 10:38 by Myles Cornelius CRNA) History of esophagogastroduodenoscopy (EGD) (~09/2020) History of tonsillectomy Biopsy of breast Most Recent Vital Signs Temperature 35.8 C L 11/20/24 16:45 Temperature Source Temporal Artery Scan 11/20/24 16:45 Pulse 70 11/20/24 16:45 Pulse Rhythm Irregular 11/20/24 15:38 Pulse 68 11/20/24 15:21 Respiratory Rate 17 11/20/24 16:45 Respiratory Effort Normal 11/20/24 15:38 Respiratory Depth Normal 11/20/24 15:38 Blood Pressure 131/74 11/20/24 16:45 Blood Pressure Mean 93 11/20/24 16:45 Blood Pressure Position Supine 11/20/24 11:10 Pulse Oximetry 91 L 11/20/24 16:45 Respiratory End-tidal CO2 37 11/20/24 15:23 Oxygen Delivery Method Room Air 11/20/24 16:45 Oxygen Flow Rate 0 11/20/24 16:45 Pain Level 5 11/20/24 16:45 Comment Patient tolerated well. 11/20/24 11:10 Allergies No Known Allergies Allergy (Verified 11/20/24 10:06) Active Medications Generic Name Dose Route Start Last Admin Trade Name Freq PRN Reason Stop Dose Admin Acetaminophen 1,000 mg 11/20/24 06:00 11/20/24 10:27 Acetaminophen 500 Mg Tab PO 11/20/24 23:59 1,000 mg PREOP LINDA Administration Tranexamic Acid/Sodium Chloride 1,000 mg in 100 mls @ 600 mls/hr 11/20/24 06:00 11/20/24 11:56 IVPB 11/20/24 23:59 Infused PREOP LINDA Infusion IV IV Catheter Type [Left Forearm Saline Lock ] IV Catheter Gauge [Left 20 Forearm] Diet Orders Category Date Time Status Regular/Normal [DIET] Nutrition 11/20/24 Dinner Active Intake and Output - 24 Hour Total 08/08/24 08:42 thru 11/20/24 17:22 Intake Total 700 Output Total 150 Balance 550 Weight 100 kg Intake: IV 700 Output: Estimated Blood Loss 150 Other: Urine Color Pale Urine Appearance Clear Urine Odor Normal Comment pt unknown void into commode, down side of bed while working with pt Emesis Description None Falls Risk Assessment History of Falls No History 11/20/24 15:38 Contributing Factors Impairments,Medications 11/20/24 15:38 Ambulatory Aids Independent 11/20/24 15:38 Tubes/Lines W/no contributing factors 11/20/24 15:38 Gait Evaluation W/no contributing factors 11/20/24 15:38 Cognition No cognitive impairment 11/20/24 15:38 Fall Total Score 26 11/20/24 15:38 Level of Risk Moderate Risk 11/20/24 15:38 v v v v v v v v v Sending and/or Receiving Nurses: Please use comment section below to note any information pertinent to the patient hand-off not included above. Information / Comments: OR reported difficulty with bed, reported filing and sqss Report received from: DANUTA Matthews RN
[2024-11-20] MEDS: ceFAZolin 1 GM/50 ML BAG IVPB (18:41)
[2024-11-20] MEDS: Aspirin E.C. 81 MG TABEC PO (20:01)
[2024-11-20] MEDS: Tranexamic Acid 650 MG TAB 1300 MG PO (20:01)
[2024-11-20] MEDS: Celecoxib 200 MG CAP PO (20:02)
[2024-11-20] MEDS: Normal Saline Flush 10 ML SYR IV (20:05)
[2024-11-21] MEDS: oxyCODONE 5 MG TAB PO (01:49)
[2024-11-21] MEDS: ceFAZolin 1 GM/50 ML BAG IVPB (02:42)
[2024-11-21 04:10] VITALS: BP 116/76; PULSE 61; RESP 16; TEMP 36.5; O2SAT 98
[2024-11-21] MEDS: Levothyroxine 25 MCG TAB PO (06:03)
--- NOTE | 2024-11-21 07:26 | W.PM.DS.N ---
Date of service: 11/21/24 Time of Service: 07:23 DS: Diagnosis Discharge Diagnosis (1) Painful total knee replacement, right: Status: Acute Discharge Plan Disposition Patient Disposition: Home Condition: Good Discharge Details Reason For Visit: Painful right UKA Admit Date/Time: 11/20/24 15:35 Admit Provider: Teto Baker Attending Provider: Teto Baker Primary Care Provider: MANDI PATEL [facility] Hospital Course: Patient was admitted to the medical/surgical floor following the procedure. The surgery was tolerated well without any notable medical, surgical, or anesthetic complications. Mobilization began postoperatively. She was voiding spontaneously. Vitals were stable. Physical therapy worked with the patient and was cleared for discharge home. No acute medical issues. Pain was controlled on oral regimen. Home Meds and New Rx's Prescriptions: New celecoxib [Celebrex] 200 mg capsule 200 mg PO BID PRNQty: 60 0RF Rx Instructions: Take one tablet twice daily for pain and inflammation aspirin 81 mg tablet,delayed release (DR/EC) 81 mg PO BID 30 Days Qty: 60 0RF acetaminophen 500 mg tablet 1,000 mg PO Q8H PRN Qty: 90 0RF Rx Instructions: Take two tablets up to every 8 hours as needed for pain pantoprazole 40 mg tablet,delayed release (DR/EC) 40 mg PO DAILY Qty: 14 0RF dexamethasone 4 mg tablet 4 mg PO DAILY Qty: 2 0RF Rx Instructions: Take one tablet once daily for two days docusate sodium [Colace] 100 mg capsule 100 mg PO BID Qty: 28 0RF gabapentin 300 mg capsule 300 mg PO QHS Qty: 14 0RF Rx Instructions: Take one tablet at bedtime oxycodone 5 mg tablet 5 mg PO Q4H PRNQty: 18 0RF Rx Instructions: Take one tablet up to every 4 hours as needed for severe postoperative pain Continued ferrous sulfate 325 mg (65 mg iron) tablet 325 mg PO DAILY gabapentin 100 mg capsule 100 mg PO DAILY levothyroxine 25 MCG tablet 25 mcg PO DAILY alendronate 70 mg tablet 70 mg PO .WEEKLY Patient Comments: TAKE 1 TABLET WEEKLY rosuvastatin 10 mg tablet 10 mg PO DAILY lisinopril-hydrochlorothiazide 10-12.5 mg tablet 2 tab PO DAILY Discharge Instructions Additional Instructions: Total Knee Discharge Instructions Activity: The most important activity is to walk and to work on gentle motion (both flexion and extension). You should try to take short walks a few times a day. It is important that when resting you work on keeping the knee straight. Avoid putting a pillow behind the knee as this will encourage flexion. Work on range of motion exercises as provided by Physical Therapy. - Start outpatient physical therapy within 2 weeks. - You should wear the JOSE hose on both legs for 2 weeks. You may remove these at night. You may also use any compression sock in place of the JOSE hose. - Utilize [employer] to review exercises, see videos on exercises and obtain basic information pertaining to your surgery and your recovery. Dressing: Remove the Christofer wrap by 2 days after your surgery and put on the JOSE stocking given to you from the hospital. Keep the surgical dressing (underneath the CHRISTOFER wrap) in place for at least one week. After the first week it may be removed and replaced with light gauze and tape or nothing. The wound and dressing may get wet after 3 days but avoid soaking the dressing or otherwise it will need to be changed. Many people prefer covering the dressing with cling wrap (saran wrap) to minimize it from getting soaked. If it gets wet, just pat dry. If it starts to peel off then it will need to be changed. Medications: - You should take Tylenol and anti-inflammatory Celebrex as your primary pain control medications. If the Celebrex is too expensive or not covered, please call the office for another alternative (Advil/Ibuprofen or Naproxen/Aleve) - You have been prescribed a stronger pain medication Oxycodone for breakthrough pain, take as needed as prescribed. - You have also been prescribed a stomach acid reduction agent Pantoprozole to help reduce stomach acid and reflux. - You have been prescribed Gabapentin 300 mg to take for a bedtime dose - take this increased dosage at night for restlessness and nerve pain. - You will be taking Aspirin 81mg twice a day for DVT prevention unless instructed otherwise. - You have also been prescribed Decadron to take to control post-operative nausea and pain. You will start this tomorrow. - If you have constipation you should take Colace (which has been prescribed) or Miralax (which is available [id number]). It takes most people 3-4 days to have a bowel movement. Follow-up: 2 weeks If you have any acute concerns or questions, please do not hesitate to contact the office at [phone]. You may contact Dr. Baker with any questions after hours through the hospital at [phone] or on his cell phone at [phone]. Referrals: Teto Baker MD [ [facility] STAFF PHYSICIAN, Orthopaedic Surgical] Activity:: Activity as Tolerated Equipment/Supplies:: Walker Diet:: As Tolerated Discharge Orders Discharge Orders: Discharge Order (Routine); Ordered 11/21/24 Ordered By: Teto Baker DS: Summary Time Spent with Patient providing and/or coordinating discharge services: Less than 30 minutes Status at Discharge Functional status at discharge: uses cane/walker Overall status at discharge: patient is progressing back to baseline Mental Status: mental status grossly normal Speech and Movement: speech and movement normal Mood: congruent mood Affect: normal affect Exam Extrem Other: Evaluation of the right lower extremity shows a clean dry and intact dressing. She is ambulating with a walker. She is able to extend the right knee against gravity. Intact ankle dorsiflexion, plantarflexion, great toe extension, flexion. Psych Mental Status: mental status grossly normal Speech and Movement: speech and movement normal Mood: congruent mood Affect: normal affect DS: Data Vitals/I&O Vitals and I&O: Vital Signs Temperature 97.9 F 11/20/24 11:10 Temperature Source Skin 11/20/24 11:10 Pulse 84 11/20/24 14:26 Pulse Rhythm Regular 11/20/24 10:08 Pulse 84 11/20/24 14:26 Respiratory Rate 16 11/20/24 14:26 Respiratory Depth Deep 11/20/24 10:08 Blood Pressure 126/56 L 11/20/24 14:26 Blood Pressure Mean 80 11/20/24 14:26 Blood Pressure Position Supine 11/20/24 11:10 Pulse Oximetry 92 11/20/24 14:26 Respiratory End-tidal CO2 36 11/20/24 14:26 Oxygen Delivery Method Room Air 11/20/24 11:10 Oxygen Flow Rate 0 11/20/24 11:10 Pain Level 0 11/20/24 11:10 Comment Patient tolerated well. 11/20/24 11:10 Intake & Output 11/19/24 11/20/24 11/20/24 23:59 11:59 23:59 Intake Total 100 / 650 550 / 650 Output Total 150 / 150 Balance 100 / 500 400 / 500 Weight 220 lb 7.396 oz Intake: IV 100 / 650 550 / 650 Output: Estimated Blood Loss 150 / 150 PFSH All Active Problems Arthritis of right knee (Acute) Painful total knee replacement, right (Acute) Pes anserinus bursitis of both knees (Acute) Status post unicompartmental knee replacement, right (Acute 12/24/21) Peptic reflux esophagitis (Acute) Helicobacter positive gastritis (Acute) Prediabetes (Acute) Hypothyroid (Chronic) Medical History Degenerative joint disease of right knee s/p right unicompartment knee replacement DOSL 12/24/21 Steroid injection: 08/06/24; 09/15/2021 COVID-19 vaccine administered Acquired hypothyroidism (12/05/17) Elevated lipids (12/05/17) 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) Vaginal wall prolapse (05/02/13) Hypercholesterolemia GERD (gastroesophageal reflux disease) Obesity L breast adenosis 1998 History of hypertension D/C Rx Surgical History History of esophagogastroduodenoscopy (EGD) (~09/2020) History of tonsillectomy Biopsy of breast L breast x 2 biopsies 1998 Dx adenosis /benign Family History Mother Thyroid disorder Father Lymphoma Lung cancer Sister Thyroid disorder Daughter Thyroid disorder Other Heart disease Social History Smoking/Tobacco Use Status: Former Tobacco Use Quit Date: 06/06/87 Smoking risk assessment performed?: Yes Alcohol Intake: current Alcohol Intake frequency: holidays/special occasions only Drug use: Never Substance use type: does not use Housing: house Current gender identity: female Do you feel safe at home: Yes Do you feel safe in your relationship?: Yes Time Spent with Patient Time Spent with Patient: <45 minutes Time was spent: preparing to see the patient(eg.review tests), obtaining and/or reviewing separately otained hiistory and counseling the patient
[2024-11-21] MEDS: Aspirin E.C. 81 MG TABEC PO (07:33)
[2024-11-21] MEDS: Pantoprazole 40 MG TABCR PO (07:33)
[2024-11-21] MEDS: Celecoxib 200 MG CAP PO (07:34)
[2024-11-21] MEDS: Acetaminophen 500 MG TAB 1000 MG PO (07:34)
--- NOTE | 2024-11-21 07:48 | PT.INTREAT ---
PT Notes Visit Reasons: Painful right UKA Inpatient Physical Therapy Treatment Note [facility] Date: 11/21/24 PRECAUTIONS:WBAT RLE SUBJECTIVE: Stephanie states that she is feeling good. She's agreeable to trying the stairs this morning. Is hopeful that she'll go home today. Has help from her daughter and grandchildren at home. OBJECTIVE: ? PAIN: 07/16 Therapeutic Activities (23970w8): Direct one-on-one instruction in dynamic activities to improve functional performance. ? BED MOBILITY/TRANSFERS? Supine-sit: supervision? Sit-supine: supervision ? Sit-stand: supervision. Cues for sliding right leg out during transfer. ? Stand-sit: supervision Bed to toilet: SBA with cues for equipment management. Stephanie leaves walker behind during turning despite cues. Encouraged to maintain UE support to walker in acute post-op phase? STAIRS: instructed in stair management with bilat rails, step to pattern. Completes therapeutic stairs 6x2 and 4x3 for 2 reps with supervision only. ? Therapeutic Exercises (98929d2): Direct one-on-one instruction in therapeutic exercises to develop strength, endurance, range of motion and flexibility. ? Exercises ? Ankle pumps 10x Quad sets 10x glute sets 10x heel slides 10x SLR 10x Ambulation ? Assistive Device: FWW? Weight bearing: WBAT Assist: supervision ? Distance:? 100'x2 ? Deviation: good step through pattern ? ASSESSMENT:? Doing well at 1 day post op. Encourage use of walker consistently as she transitions home. Demonstrates good safety with stair management and household distance ambulation. PLAN: Home once medically cleared. Recommend outpatient PT. TREATMENT CODE/TIME: [id number] (02642, 92685) DISCHARGE RECOMMENDATION: Home with outpatient PT Krystal Holm, PT, DPT [place] [facility]
[2024-11-21 08:14] VITALS: BP 123/73; PULSE 67; RESP 18; TEMP 36.9; O2SAT 94
--- NOTE | 2024-11-21 09:55 | PDOC.CMPRO ---
Date of service: 11/21/24 Time of Service: 09:56 Care Management Progress Note Progress Note Text Progress Note Text: Stephanie was admitted on 11/20/24 s/p Painful total knee replacement. She discharged home today, before CM could meet with her. Social Determinants of Health Screening Will the Patient Participate in the Screening?: Unable to obtain
== END 2024-11-21 09:34 | disposition home or self-care (01) | DRG 468 ==
LOC: MS 15:36
PROVIDERS: Admitting Provider Student in an Organized Health Care Education/Training Program; PCP Nurse Practitioner Family; Visit Provider Student in an Organized Health Care Education/Training Program
PROC: 0SRC0J9 Replacement of Right Knee Joint with Synthetic Substitute, Cemented, Open Approach (ICD-10-PCS; CPT 27487; principal; 2024-11-20 12:45)
DX: T84.84XA Pain due to internal orthopedic prosthetic devices, implants and grafts, initial encounter (principal); M17.11 Unilateral primary osteoarthritis, right knee; Z96.651 Presence of right artificial knee joint; G89.18 Other acute postprocedural pain; K21.00 Gastro-esophageal reflux disease with esophagitis, without bleeding; Z79.899 Other long term (current) drug therapy; E78.00 Pure hypercholesterolemia, unspecified; R73.03 Prediabetes; E03.9 Hypothyroidism, unspecified; M25.561 Pain in right knee
CPT/HCPCS: 27487; 20985; 64447; 97110; 97161; 97530; C1776; J0665; J0666; J0690; J1100; J1596; J2003; J2405; J2704

== ENCOUNTER 2024-12-03 13:55 | Outpatient (CLI) | payer MEDICARE, SELFPAY ==
--- NOTE | 2024-12-03 13:30 | DI.RAD_ITS ---
Exam(s) XR KNEE RT 1V XR STANDING ALIGNMENT EXAM: XR STANDING ALIGNMENT CLINICAL HISTORY: 1ST POST OP S/P REVISION R TKA. TECHNIQUE: 2D digital imaging was performed. Standing AP views were performed from the pelvis through the ankles. COMPARISON: CR XR STANDING ALIGNMENT from 11/12/2024 CR XR KNEE RT 1V from 11/12/2024 CR XR KNEE RT 1V from 12/03/2024 FINDINGS: BONES: No acute fracture is present. No bony destructive lesion is seen. Leg length discrepancy: 15 mm overall leg length discrepancy with the left femoral head projecting superior to the right.. JOINTS: Knees: A right total knee prosthesis has been placed since the prior exam which shows satisfactory alignment. The left knee joint spaces are maintained. The ankle joints are unremarkable. The hip joints are unremarkable. SOFT TISSUE: Normal. IMPRESSION: Status post placement of right total knee prosthesis. 15 millimeter leg length discrepancy. DATA REPOSITORY: RADIATION DOSE DELIVERED:
== END 2024-12-03 13:56 | disposition home or self-care (01) ==
LOC: DIORS 13:55
PROVIDERS: PCP Nurse Practitioner Family; Referring Provider Nurse Practitioner Family; Visit Provider Student in an Organized Health Care Education/Training Program
DX: Z47.1 Aftercare following joint replacement surgery (principal); T84.84XA Pain due to internal orthopedic prosthetic devices, implants and grafts, initial encounter; Z96.651 Presence of right artificial knee joint
CPT/HCPCS: 99024; 73560; 77073

== ENCOUNTER → 2024-12-31 13:44 | Outpatient (BNVA) | payer MEDICARE, SELFPAY | PROVIDERS: PCP Nurse Practitioner Family; Referring Provider Nurse Practitioner Family; Visit Provider Student in an Organized Health Care Education/Training Program | DX: Z47.1 Aftercare following joint replacement surgery (principal); Z96.651 Presence of right artificial knee joint; T84.84XA Pain due to internal orthopedic prosthetic devices, implants and grafts, initial encounter | CPT/HCPCS: 99024 ==

== ENCOUNTER → 2025-02-11 11:06 | Outpatient (BNVA) | payer MEDICARE, SELFPAY | PROVIDERS: PCP Nurse Practitioner Family; Referring Provider Nurse Practitioner Family; Visit Provider Student in an Organized Health Care Education/Training Program | DX: Z47.1 Aftercare following joint replacement surgery (principal); Z96.651 Presence of right artificial knee joint | CPT/HCPCS: 99024 ==